=== PATIENT | female | born 1950 | race Caucasian/White ===

== ENCOUNTER → 2016-10-23 | Outpatient (CLI) | payer MEDICARE ==
[2016-10-23 11:00] LABS: Calcium 11.3 mg/dL (8.4-10.2)
[2016-10-23 11:56] LABS: Ionized Calcium 6.1 mg/dL (4.5-5.3)
== END | disposition home or self-care (01) ==
LOC: LABWHC1 10:20
PROVIDERS: ATTEND Family Medicine
DX: E83.52 Hypercalcemia (principal)
CPT/HCPCS: 36415; 82310; 82330; 83970

== ENCOUNTER → 2016-10-27 | Outpatient (CLI) | payer MEDICARE ==
--- NOTE | 2016-10-27 12:01 | US ---
EXAMINATION TYPE: US thyroid st tissue head/neck DATE OF EXAM: 10/27/2016 11:29 AM COMPARISON: Outside chest CT May 15 09/04/2015 CLINICAL HISTORY: Hypercalcemic E83.52,[id number]. GLAND SIZE: Right Lobe: 3.4 x 1.5 x 1.6 cm Overall Parenchyma: homogenous Left Lobe: 3.4 x 1.0 x 0.9 cm Overall Parenchyma: homogeneous Isthmus Thickness: 0.2 cm NODULES RIGHT: # of nodules measured on right: 0 LEFT: # of nodules measured on left: 0 ISTHMUS: # of nodules measured in the isthmus: 0 TECHNOLOGIST IMPRESSION: Bilateral neck scanned, no abnormal lymphadenopathy noted. No thyroid nodul es are seen, however, inferior to right thyroid is oval anechoic nodule = 1.1 x 0.6 x 0.4cm at parath yroid level. Thyroid gland is overall small in size and homogeneous echotexture without suspicious nodule. Inferio r to right thyroid gland technologist identifies 1.1 x 0.4 x 0.6 cm oval hypoechoic anechoic lesion c ould reflect parathyroid adenoma, this is not well seen on old CT but there is significant streak art ifact from contrast injection at this level. IMPRESSION: Possible right-sided parathyroid adenoma. Advise correlation with nuclear medicine parathyroid scan.
== END ==
LOC: RADUSWWP 10:37
PROVIDERS: ATTEND Family Medicine
DX: E83.52 Hypercalcemia (principal); E21.3 Hyperparathyroidism, unspecified
CPT/HCPCS: 76536

== ENCOUNTER → 2016-11-02 | Outpatient (CLI) | payer MEDICARE ==
--- NOTE | 2016-11-02 16:05 | NM ---
EXAMINATION TYPE: NM parathyroid w/spect DATE OF EXAM: 11/02/2016 3:59 PM COMPARISON: NONE HISTORY: TECHNIQUE: Following administration of 27.5 mCi Tc99m Sestamibi. Anterior projection images of the neck and ches t were obtained 10 minutes and 3 hours post injection. SPECT images of the neck and chest were obtai ruben and reconstructed in three axes. FINDINGS: On delayed imaging there is a persistent area of uptake seen within the right thyroid bed suspicious for parathyroid adenoma. IMPRESSION: Findings suspicious for right parathyroid adenoma.
== END ==
LOC: RADNMMAIN 11:27
PROVIDERS: ATTEND Family Medicine
DX: E83.52 Hypercalcemia (principal); E21.3 Hyperparathyroidism, unspecified; D35.1 Benign neoplasm of parathyroid gland
CPT/HCPCS: 78071; A9500

== ENCOUNTER → 2016-11-12 | Outpatient (CLI) | payer MEDICARE ==
[2016-11-12 11:42] LABS: Basophils # (A) 0.1 k/uL (0-0.2); Basophils % (A) 1 %; CH 30.6; CHCM 33.2; Eosinophils # (A) 0.1 k/uL (0-0.7); Eosinophils % (A) 1 %; HCT 46.1 % (34.0-46.0); HDW 2.45; HGB 15.3 gm/dL (11.4-16.0); Luc # (Auto) 0.23; Luc % (Auto) 4; Lymphocytes # (A) 1.3 k/uL (1.0-4.8); Lymphocytes % (A) 20 %; MCH 30.7 pg (25.0-35.0); MCHC 33.1 g/dL (31.0-37.0); MCV 92.7 fL (80.0-100.0); Mean Platelet Volume 7.9; Monocytes # (A) 0.4 k/uL (0-1.0); Monocytes % (A) 7 %; Neutrophils # (A) 4.2 k/uL (1.3-7.7); Neutrophils % (A) 67 %; RBC 4.97 m/uL (3.80-5.40); WBC 6.4 k/uL (3.8-10.6); WBC (Perox) 6.58
[2016-11-12 12:03] LABS: ALT 26 U/L (9-52); AST 19 U/L (14-36); Alkaline Phosphatase 99 U/L (38-126); Anion Gap 9 mmol/L; Blood Urea Nitrogen 14 mg/dL (7-17); Calcium 11.5 mg/dL (8.4-10.2); Carbon Dioxide 28 mmol/L (22-30); Chloride 101 mmol/L (98-107); Glucose 89 mg/dL (74-99); Non-African American GFR(MDRD) >60 (>60 ml/min/1.73 sqM); Sodium 138 mmol/L (137-145); Total Bilirubin 0.6 mg/dL (0.2-1.3); Total Protein 7.5 g/dL (6.3-8.2)
--- NOTE | 2016-11-12 12:06 | XR ---
EXAMINATION TYPE: XR chest 2V DATE OF EXAM: 11/12/2016 11:50 AM COMPARISON: NONE HISTORY: Shortness of breath TECHNIQUE: Frontal and lateral views of the chest are obtained. FINDINGS: Scattered senescent parenchymal changes noted. Hyperinflation compatible with COPD. No evidence for infiltrate. No evidence for atelectasis. Heart size is stable. Mediastinal structures are stable and grossly unremarkable. No evidence for hilar prominence. Degenerative changes dorsal spine. IMPRESSION: 1. No evidence for acute pulmonary disease.
== END ==
LOC: LABWHC1 11:18
PROVIDERS: ATTEND Family Medicine
DX: R06.00 Dyspnea, unspecified (principal); R07.89 Other chest pain
CPT/HCPCS: 36415; 71020; 80053; 84484; 85025; 87086

== ENCOUNTER → 2016-11-13 | Outpatient (CLI) | payer MEDICARE ==
--- NOTE | 2016-11-13 11:51 | EST ---
DATE OF SERVICE: 11/13/2016 AGE: 66Y SEX: F HT: 5'5" WT: 157 lbs. Protocol Viet: X Other: Cardiolite Stage: Dur. of Exercise: 9 minutes *Heart Rate Blood Pressure *Rest: 58 Rest: 118/95 * *Max. Achieved: 130 Maximum BP: 179/72 85% PMHR: 129 100% PMHR: 152 *METS: 11.1 INDICATIONS: Chest pain. MEDICATIONS: Baseline rhythm is sinus mechanism, rate of 58, normal axis and intervals, occasional PVCs. Baseline blood pressure 118/95 mmHg. Patient exercised on Viet protocol for 9 minutes reaching peak rate of 130 beats per minute which is equal to 85% maximum predicted heart rate; peak blood pressure 179/72 mmHg. Test was terminated secondary to fatigue. There was no chest pain. Electrocardiograph monitoring revealed a 0.[address] segment depression that resolved in recovery. Cardiolite was injected at peak exercise. CONCLUSION: 1. Good exercise tolerance with borderline positive electrocardiograph stress testing and occasional premature ventricular contractions. 2. Nuclear images will be reported separately.
--- NOTE | 2016-11-13 13:01 | NM ---
EXAMINATION TYPE: NM stress cardiolite complete DATE OF EXAM: 11/13/2016 12:43 PM COMPARISON: NONE HISTORY: Chest pain TECHNIQUE: After the intravenous administration of 9.9 mCi Tc 99m Sestamibi - Rest images obtained 8 5 minutes post injection. The patient exercised using a SHERITA protocol and 1 minute prior to peak e xercise was injected with 27.5 mCi Tc 99m Sestamibi - Stress images obtained 15 minutes post injectio n. FINDINGS: Targeted heart rate was achieved during performance of the study. Review of stress and rest SPECT viet ges demonstrates no distinct perfusion abnormality. Gated analysis shows normal wall motion with an estimated left ventricular ejection fraction of 58 %. There is good uptake by the left ventricle of radiopharmaceutical without fixed defect. There is no c onvincing inducible ischemic change. IMPRESSION: I DO NOT SEE EVIDENCE OF INDUCIBLE ISCHEMIC CHANGE AT THIS TIME.
== END | disposition home or self-care (01) ==
LOC: RADNMMAIN 08:56
PROVIDERS: ATTEND Family Medicine
DX: R07.89 Other chest pain (principal); R06.00 Dyspnea, unspecified
CPT/HCPCS: 93017; 78452; A9500

== ENCOUNTER → 2016-11-20 | Outpatient (CLI) | payer MEDICARE ==
[2016-11-20 14:09] LABS: Blood Urea Nitrogen 20 mg/dL (7-17); Non-African American GFR(MDRD) 57 (>60 ml/min/1.73 sqM)
--- NOTE | 2016-11-20 15:19 | CT ---
EXAMINATION TYPE: CT angio thoracic/abd aorta DATE OF EXAM: 11/20/2016 3:02 PM COMPARISON: Outside CT chest November 14, 2015. CT abdomen March 14, 2015. HISTORY: Abdominal aneurysm per order with new pain. CT DLP: 760 mGycm. Automated Exposure Control for Dose Reduction was Utilized. CONTRAST: CTA scan of the thorax, abdomen and pelvis is performed with IV Contrast, patient injected with 100 m l mL of Visipaque 320. Three-D reconstructed images are created on independent workstation and review ed. FINDINGS: Vascular: There is satisfactory enhancement of the pulmonary artery and its branches, there is no CT evidence for pulmonary embolism. There is 4.3 x 4.2 cm aneurysm to the ascending thoracic aorta on ax ial image 33 felt stable in size from outside study. Aneurysm measures 4.3 cm in diameter at root lev el on axial image 38. Remainder of aorta shows no aneurysmal change. No linear hypodensity to suggest dissection is seen. There is patency through the deep and superficial femoral artery branches bilate rally without significant stenosis or plaque identified. There is patency of the abdominal branch ves sels including BETY. There is bovine type aortic arch noted which is normal variant. LUNGS: Linear scarring in the left lower lobe is redemonstrated. There is no concerning parenchymal n odule or mass identified bilaterally. There is no pleural effusion or pneumothorax seen. The trach eobronchial tree is patent. MEDIASTINUM: There are no greater than 1 cm hilar or mediastinal lymph nodes. No pericardial effusi on is seen. There is cardiomegaly with mild to moderate biatrial dilatation. Dominant right coronary artery is incidentally noted. OTHER: There is heterogeneously dense fibroglandular tissue redemonstrated in both breasts. There is dystrophic calcification in the left breast present. There is more suspicious oval well-circumscribed lesion in the lower inner quadrant left breast measuring 1.8 x 1.0 cm with Hounsfield units averagin g 41 favoring solid lesion over cystic etiology stable from outside study. There is additional 1.0 x 0.9 cm round lesion in the medial inferior right breast on axial image 31 stable from prior study. Dru th lesions warrant further workup. LIVER/GB: No significant abnormality is appreciated. PANCREAS: No significant abnormality is seen. SPLEEN: No significant abnormality is seen. ADRENALS: No significant abnormality is seen. KIDNEYS: No significant abnormality is seen. BOWEL: No significant abnormality is seen. GENITAL ORGANS: No gross abnormality seen. LYMPH NODES: No greater than 1cm abdominal or pelvic lymph nodes are appreciated. OSSEOUS STRUCTURES: Sclerosis and disc space narrowing lumbosacral junction is present. OTHER: No significant additional abnormality is seen. IMPRESSION: 1. Stable 4.3 cm aneurysm of the ascending thoracic aorta. No evidence for leak/rupture or dissection . 2. Suspicious bilateral breast lesions in which solid masses or neoplasm cannot be excluded. Targeted ultrasound follow-up advised. Also consider mammogram correlation if has not been performed in last six months. Results communicated to ordering physician office via telephone at time of dictation.
== END | disposition home or self-care (01) ==
LOC: RADCTMAIN 13:13
PROVIDERS: ATTEND Internal Medicine Interventional Cardiology
DX: I71.2 Thoracic aortic aneurysm, without rupture (principal); I51.7 Cardiomegaly
CPT/HCPCS: 82565; 84520; 75635; 71275; 36415; Q9967

== ENCOUNTER 2016-11-23 07:27 | Day surgery (SDC) | payer MEDICARE ==
[2016-11-23] MEDS ORDERED: ALPRAZolam 0.5 MG TAB PO PRN (07:44)
[2016-11-23] MEDS ORDERED: NITROGLYCERIN SL TABS 0.4 MG TAB SUBLINGUAL PRN (07:44)
[2016-11-23] MEDS ORDERED: SODIUM CHLORIDE 0.9% 1,000 ML in EMPTY BAG 1 BAG IV ONE (07:44)
[2016-11-23] MEDS ORDERED: ALPRAZolam 0.25 MG TAB PO PRN (07:44)
[2016-11-23] MEDS ORDERED: BENZOCAINE SPRAY 100 APPLIC/CAN TOPICAL PRN (07:45)
[2016-11-23] MEDS ORDERED: ATORVASTATIN 80 MG TAB PO STA (07:47)
[2016-11-23] MEDS ORDERED: ASPIRIN 325 MG TAB PO STA (07:47)
[2016-11-23 07:49] VITALS: RESP 18
[2016-11-23] MEDS ORDERED: MIDAZOLAM 2 MG/2 ML VIAL IV ONE (08:18)
[2016-11-23] MEDS ORDERED: diphenhydrAMINE 50 MG/ML 1 ML VIAL IVP ONE (08:18)
[2016-11-23] MEDS ORDERED: LIDOCAINE 2% INJ 20 MG/ML SQ ONE ×2 (08:20)
[2016-11-23] MEDS: VERAPAMIL SYRINGE (5 MG/10 ML) INTRAARTER ONE ×2 (08:22→08:39)
[2016-11-23] MEDS ORDERED: IOHEXOL 350 MG/ML 100 ML BOTTLE INJ ONE (08:38)
[2016-11-23] MEDS ORDERED: RX INFO: IV CONTRAST WAS GIVEN 1 EACH MISC MISCELLANE PRN (08:47)
[2016-11-23] MEDS ORDERED: SODIUM CHLORIDE 0.9% 1,000 ML IV SCH (09:00)
[2016-11-23 14:53] VITALS: TEMP 98.4
[2016-11-23 14:55] VITALS: BP 135/68; PULSE 58
--- NOTE | 2016-11-23 20:45 | CC ---
DATE OF SERVICE: 11/23/2016 PERFORMING PHYSICIAN: Sancho López M.D., application trainer. PROCEDURE PERFORMED: Selective right and left coronary angiogram. INDICATION: This is a pleasant 66-year-old female patient with known hypertension who was experiencing chest discomfort. She underwent a stress test which came in to be unremarkable, but the patient continues to have chest discomfort. The heart catheterization is to rule out any severe underlying CAD. APPROACH: Right radial artery. COMPLICATIONS: None. LEVEL OF SEDATION: Moderate with sedation length of half an hour. PROCEDURE DESCRIPTION: After obtaining informed consent, the patient was brought to the cardiac catheterization lab. The right radial artery was cannulated using micropuncture technique. The micropuncture wire passed easily. Then I placed a 6 Tongan sheath in the right radial artery. Subsequently I did selective right and left coronary angiogram using JR4 and JL3.5 catheters. Then the procedure was completed without any complication. SELECTIVE CORONARY ANGIOGRAM 1. The right coronary artery is a large-caliber vessel. It is a dominant vessel. It is angiographically normal. It bifurcates into PDA and PLV branches; both are angiographically normal. 2. The left main has mild disease only. It bifurcates into the left circumflex and left anterior descending artery. 3. The left circumflex is a large-caliber vessel. It is a non-dominant vessel. The proximal left circumflex is angiographically normal. It gives rise to a large first OM branch, which appeared to be angiographically normal. The left circumflex continues after that as a medium-caliber vessel in the AV groove. 4. The ramus intermedius is a moderate-caliber vessel, tortuous but angiographically normal. 5. Left anterior descending artery. The proximal LAD appeared to have mild disease only. The mid LAD appeared to be angiographically normal. The LAD distally is angiographically normal as well. The LAD gives rise to small multiple diagonal branches. CONCLUSION: 1. Tortuous right subclavian artery. 2. Tortuous coronary system. 3. Mild non-obstructive coronary artery disease. POST-PROCEDURE MANAGEMENT: 1. Maximize medical treatment. 2. Follow up with the patient.
--- NOTE | 2016-11-23 20:47 | LTR ---
November 23, 2016 RE: Ml Malik E Dear Dr. Villalobos, As we discussed on the phone, Ms. Ml Malik underwent heart catheterization which showed mild non-obstructive coronary artery disease. Thank you for allowing me to participate in her care. Please do not hesitate to call with questions or concerns. Sincerely, CRYSTAL VIERA MD
== END 2016-11-23 14:05 | disposition home or self-care (01) ==
LOC: CATHCVL 07:27
PROVIDERS: ATTEND Internal Medicine Interventional Cardiology
DX: I25.119 Atherosclerotic heart disease of native coronary artery with unspecified angina pectoris (principal); I77.1 Stricture of artery; I10 Essential (primary) hypertension; Z79.82 Long term (current) use of aspirin; Z79.51 Long term (current) use of inhaled steroids; Z79.899 Other long term (current) drug therapy; Z88.1 Allergy status to other antibiotic agents; Z88.8 Allergy status to other drugs, medicaments and biological substances
CPT/HCPCS: 99152; 99153; 93454; C1769 ×2; C1894; J2001; J2250; J1200; Q9967; J1644

== ENCOUNTER → 2016-12-14 | Outpatient (CLI) | payer MEDICARE ==
--- NOTE | 2016-12-15 08:32 | MM ---
Reason for exam: additional evaluation requested from prior study. Last mammogram was performed 1 year ago. History: Patient is postmenopausal. Family history of breast cancer in sister at age 63. Benign US left guided mammotome of the left breast, May 11, 2008. Benign cyst aspiration of the right breast. Took estrogen for 7 years beginning at age 50. Took progesterone for 6 years. Physical Findings: Nurse did not find any significant physical abnormalities on exam. MG 3D Diag Mammo W/Cad JUAN Bilateral CC and MLO view(s) were taken. Prior study comparison: December 13, 2015, bilateral MG 3d diag mammo w/cad JUAN. January 14, 2015, bilateral MG screening mammo w CAD. The breast tissue is heterogeneously dense. This may lower the sensitivity of mammography. Benign calcifications. New bilateral nodularity. This finding is changed when compared with previous exams. These results were verbally communicated with the patient and result sheet given to the patient on 12/14/16. ASSESSMENT: Incomplete: need additional imaging evaluation, BI-RAD 0 RECOMMENDATION: Ultrasound of both breasts.
--- NOTE | 2016-12-15 08:38 | USB ---
Reason for exam: additional evaluation requested from abnormal screening. History: Patient is postmenopausal. Family history of breast cancer in sister at age 63. Benign US left guided mammotome of the left breast, May 11, 2008. Benign cyst aspiration of the right breast. Took estrogen for 7 years beginning at age 50. Took progesterone for 6 years. US Breast BILAT Right breast ultrasound includes all four quadrants, the retroareolar region and axilla. Finding demonstrate a 0.6 x 0.3 x 0.5cm oval, hypoechoic lesion at 1 o'clock, and a 1.0 x 0.9 x 0.7cm hypoechoic lesion at 3 o'clock for which a biopsy is recommended. Left breast ultrasound includes all four quadrants, the retroareolar region and axilla. Finding demonstrate a 2.6 x 2.2 x 0.9cm oval, hypoechoic lesion at 11 o'clock for which a biopsy is recommended. These results were verbally communicated with the patient and result sheet given to the patient on 12/14/16. ASSESSMENT: Suspicious, BI-RAD 4 RECOMMENDATION: Ultrasound core biopsy of both breasts. x [address] Villalobos with mammographic findings and has scheduled an appointment for the patient on 01/14/17 at 9:[address] Abbott. PRELIMINARY REPORT CALLED AND FAXED TO DR. ABBOTT ON 12/15/16 AT 300/TMP.
== END | disposition home or self-care (01) ==
LOC: RADMAMWWP 13:41
PROVIDERS: ATTEND Family Medicine
DX: R92.2 Inconclusive mammogram (principal); R92.8 Other abnormal and inconclusive findings on diagnostic imaging of breast; N63 Unspecified lump in breast; Z80.3 Family history of malignant neoplasm of breast
CPT/HCPCS: 76641; G0204; G0279

== ENCOUNTER → 2016-12-15 | Outpatient (CLI) | payer MEDICARE ==
--- NOTE | 2016-12-15 10:52 | BD ---
EXAMINATION TYPE: MG DEXA axial skeleton. DATE OF EXAM: 12/15/2016 9:08 AM COMPARISON: DEXA bone scan report January 02, 2002 CLINICAL HISTORY: post menopausal Height: 5'5 Weight: 158 FRAX RISK QUESTIONS: Alcohol (3 or more units per day): no Family History (Parent hip fracture): no Glucocorticoids (More than 3mos): no (Ex: prednisone, prednisolone, methylprednisolone, dexamethasone, and hydrocortisone). History of Fracture in Adulthood: no Secondary Osteoporosis: 1. Type 1 Diabetes: no 2. Hyperthyroidism: no 3. Menopause before 45: no 4. Malnutrition: no 5. Chronic liver disease: no Rheumatoid Arthritis: no Current Tobacco Use: no RISK FACTORS HISTORY OF: Family History of Osteoporosis: Postmenopausal woman: MEDICATIONS: Additional Medications: blood pressure, singular Additional History: parathyroid surgery tomorrow, EXAM MEASUREMENTS: Bone mineral densitometry was performed using the [employer] System. Bone mineral density as measured about the Lumbar spine is: ----- L1-L4(G/cm2): 1.387 T Score Values are as follows: ----- L2: 1.5 ----- L3: 2.5 ----- L4: 1.9 ----- L1-L4: 1.7 Bone mineral density has: Decreased -13.5% since study of: 01/02/2002 Bone mineral density about the R hip (g/cm2): 0.991 Bone mineral density about the L hip (g/cm2): 0.966 T Score values are as follows: -----R Neck: -0.3 -----L Neck: -0.5 -----R Total: 0.4 -----L Total: 0.5 Bone mineral density has: Decreased -10.0% since study of: 01/02/2002 IMPRESSION: Normal range on today's study. (Values between +1 and -1 indicate normal bone mass). Consider repeat ing this study in 5 years or sooner if there is some new clinical indication. NOTE: T-SCORE=SD OF THE YOUNG ADULT MEAN.
== END | disposition home or self-care (01) ==
LOC: RADBDWWP 08:47
PROVIDERS: ATTEND Family Medicine
DX: Z13.820 Encounter for screening for osteoporosis (principal); Z78.0 Asymptomatic menopausal state
CPT/HCPCS: 77080

== ENCOUNTER 2016-12-22 09:28 | Emergency (ER) | payer MEDICARE ==
[2016-12-22 09:40] VITALS: BP 156/68; PULSE 65; RESP 20; TEMP 97
--- NOTE | 2016-12-22 10:46 | ED ---
Lower Extremity Injury HPI - General Source: patient, RN notes reviewed Mode of arrival: ambulatory Limitations: no limitations <Ezekiel Peguero - Last Filed: 12/22/16 11:12> <Joshua Muniz - Last Filed: 12/23/16 08:03> - General Chief Complaint: Extremity Injury, Lower Stated Complaint: foot numbness Time Seen by Provider: 12/22/16 09:50 - History of Present Illness Initial Comments: 66-year-old male presents emergency Department with chief complaint of left foot swelling and pain. Patient states that she had thyroidectomy one week ago. Patient states that she noticed some bruising and swelling states it's gotten worse. Patient states that she felt some pain radiating up her leg and some numbness. Patient states she did have an IV attempt in her left foot. She states she is just concerned about possible blood clot. She denies any fever, chills. Patient denies any chest pain or shortness of breath. Patient denies any other complaints at this time. (Ezekiel Peguero) - Related Data Home Medications Medication Instructions Recorded Confirmed Albuterol Sulfate [Proair Hfa] 1 - 2 puff INHALATION Q6HR PRN 11/23/16 12/22/16 Aspirin 81 mg PO DAILY 11/23/16 12/22/16 Cranberry Fruit Concentrate 450 mg PO DAILY 11/23/16 12/22/16 [Cranberry] Cyanocobalamin (Vitamin B-12) 1,000 mcg PO DAILY 11/23/16 12/22/16 [Vitamin B-12] Fish Oil/Dha/Epa [Fish Oil 1,200 1 tab PO DAILY 11/23/16 12/22/16 mg Fish Oil] Fluticasone/Salmeterol [Advair Hfa 2 puff INHALATION BID 11/23/16 12/22/16 115-21 Mcg Inhaler] L.acidoph,Paracasei, B.lactis 1 each PO DAILY 11/23/16 12/22/16 [Probiotic] Montelukast [Singulair] 10 mg PO DAILY 11/23/16 12/22/16 amLODIPine [Norvasc] 5 mg PO DAILY 11/23/16 12/22/16 Allergies Allergy/AdvReac Type Severity Reaction Status Date / Time amoxicillin [From Augmentin] Allergy Nausea & Verified 12/22/16 10:10 Vomiting & Diarrhea ciprofloxacin [From Cipro] Allergy Nausea & Verified 12/22/16 10:10 Vomiting clavulanic acid Allergy Nausea & Verified 12/22/16 10:10 [From Augmentin] Vomiting & Diarrhea Review of Systems ROS Other: All systems not noted in ROS Statement are negative. <Ezekiel Peguero - Last Filed: 12/22/16 11:12> ROS Other: All systems not noted in ROS Statement are negative. <Joshua Muniz - Last Filed: 12/23/16 08:03> ROS Statement: Those systems with pertinent positive or pertinent negative responses have been documented in the HPI. Past Medical History Past Medical History: Asthma, Hypertension, Thyroid Disorder History of Any Multi-Drug Resistant Organisms: None Reported Additional Past Surgical History / Comment(s): thyroid Past Psychological History: No Psychological Hx Reported Smoking Status: Never smoker Past Alcohol Use History: None Reported Past Drug Use History: None Reported <Ezekiel Peguero - Last Filed: 12/22/16 11:12> General Exam Limitations: no limitations General appearance: alert, in no apparent distress Respiratory exam: Present: normal lung sounds bilaterally. Absent: respiratory distress, wheezes, rales, rhonchi, stridor Cardiovascular Exam: Present: regular rate, normal rhythm, normal heart sounds. Absent: systolic murmur, diastolic murmur, rubs, gallop, clicks Extremities exam: Present: other (Left foot dorsal aspect there is an area of edema and ecchymosis. Pedal pulses +2 and equal bilaterally neurovascular intact patient's full strength and full range of motion. Area of ecchymosis on her left foot is tender. There is no calf tenderness) <Ezekiel Peguero - Last Filed: 12/22/16 11:12> Medical Decision Making <Ezekiel Peguero - Last Filed: 12/22/16 11:12> <Joshua Muniz - Last Filed: 12/23/16 08:03> - Medical Decision Making 66-year-old female presented for left foot pain and swelling. Patient has superficial thrombophlebitis secondary to IV. Patient will be discharged. Patient was evaluated by Dr. Muniz. Return parameters were discussed. (Ezekiel Peguero) Patient was evaluated by myself, Dr. Muniz. Patient does have small area of ecchymosis left dorsal foot, approximately 3 x 3 cm. There is associated tenderness. No calf tenderness or leg swelling. Likely superficial thrombophlebitis. Ultrasound be ordered to rule out DVT. Case was discussed with Dr. Madera prior to patient arrival. (Joshua Muniz) Disposition <Ezekiel Peguero - Last Filed: 12/22/16 11:12> <Joshua Muniz - Last Filed: 12/23/16 08:03> Clinical Impression: Superficial thrombophlebitis of lower extremity Disposition: HOME SELF-CARE Condition: Stable Instructions: Superficial Thrombophlebitis (ED) Additional Instructions: Please return to the Emergency Department if symptoms worsen or any other concerns. Referrals: Audrey Villalobos MD [Primary Care Provider] - 1-2 days
--- NOTE | 2016-12-22 11:09 | US ---
EXAMINATION TYPE: US venous doppler duplex LE LT DATE OF EXAM: 12/22/2016 10:58 AM COMPARISON: NONE CLINICAL HISTORY: Pain. Numbness/tingling left leg. Pain left thigh. Bruising/lump top of left foot, recent IV (5 days ago) SIDE PERFORMED: Left TECHNIQUE: The lower extremity deep venous system is examined utilizing real time linear array sonog rima with graded compression, doppler sonography and color-flow sonography. VESSELS IMAGED: External Iliac Vein (EIV) Common Femoral Vein Deep Femoral Vein Greater Saphenous Vein * Femoral Vein Popliteal Vein Small Saphenous Vein * Proximal Calf Veins (* superficial vessels) Left Leg: No evidence of DVT. Scanned top of left foot (area of bruising/lump), superficial thrombus noted within area IMPRESSION: No evidence for DVT at this time.
== END 2016-12-22 11:24 | disposition home or self-care (01) ==
LOC: EC 09:28
DX: I80.02 Phlebitis and thrombophlebitis of superficial vessels of left lower extremity (principal); J45.909 Unspecified asthma, uncomplicated; I10 Essential (primary) hypertension; Z79.51 Long term (current) use of inhaled steroids; Z79.82 Long term (current) use of aspirin; Z79.899 Other long term (current) drug therapy; Z88.0 Allergy status to penicillin; Z88.1 Allergy status to other antibiotic agents
CPT/HCPCS: 99283

== ENCOUNTER → 2016-12-31 | Day surgery (SDC) | payer MEDICARE ==
[~2016-12-31] MED LIST: ALPRAZolam 0.25 MG TAB ONE; BACITRACIN OINT 1 EACH PACKET TOPICAL ONE; LIDOCAINE 1% INJ 10MG/ML (20 ML MDV) ONE
--- NOTE | 2016-12-31 16:13 | USB ---
EXAMINATION TYPE: US biopsy breast VAD RT, US biopsy breast VAD LT, MG post biopsy diagnostic mammo BI wo CAD DATE OF EXAM: 12/31/2016 2:22 PM CLINICAL HISTORY: 66-year-old female R92.8 prev abnormal. Referred for ultrasound-guided bilateral breast biopsy. TECHNIQUE: Ultrasound guided core biopsy of the bilateral breasts. COMPARISON: 12/14/2016 FINDINGS: The procedure of ultrasound guided core biopsy was explained to the patient. Benefits, alternatives, and risks were discussed. An informed consent was then obtained. The patient was placed in supine positioning for imaging and for the procedure. The overlying skin was prepped and draped in usual sterile fashion. Lidocaine was used as anesthetic into the skin and subcutaneous tissue up to area of concern in each breast in turn. 1.) Right breast 3:00 position, lobulated 1.3 cm mass: Under ultrasound guidance , a 13-gauge vacuum-assisted mammotome Elite biopsy gun was used to obtain 5 core samples. Following this, a coil clip was left in lesion. 2.) Left breast 11:00 position, ovoid 2.4 cm mass: Under ultrasound guidance, a 13-gauge vacuum-assisted mammotome Elite biopsy gun was used to obtain 8 core samples. Following this, a coil clip was left in lesion. Aspiration was subsequently attempted which yielded no fluid. The patient tolerated the procedure well without any immediate complication. The patient was kept in the radiology department for short stay after the procedure and then discharged home in stable condition. Postprocedure mammogram shows coil clips in place posteriorly in each breast corresponding to the mammographic nodules. IMPRESSION: Successful, uncomplicated ultrasound guided core biopsy of the 3:00 right breast mass and 11:00 left breast mass. Full pathology results to follow. Pathology Results: Benign A. BREAST, LEFT, CORE BIOPSY: FIBROADENOMA AND FIBROCYSTIC CHANGES INCLUDING CYSTS, APOCRINE METAPLASIA AND SCLEROSING ADENOSIS. B. BREAST, RIGHT, CORE BIOPSY: FIBROADENOMA AND FIBROCYSTIC CHANGES INCLUDING CYSTS, APOCRINE METAPLASIA AND SCLEROSING ADENOSIS. Recommendation Follow up ultrasound of bilateral breasts in 6 months. TALIB
== END ==
LOC: RADUSWWP 11:27
PROVIDERS: ATTEND Surgery
DX: D24.2 Benign neoplasm of left breast (principal); N60.12 Diffuse cystic mastopathy of left breast; N60.82 Other benign mammary dysplasias of left breast; N60.22 Fibroadenosis of left breast; D24.1 Benign neoplasm of right breast; N60.11 Diffuse cystic mastopathy of right breast; N60.81 Other benign mammary dysplasias of right breast; N60.21 Fibroadenosis of right breast; R92.8 Other abnormal and inconclusive findings on diagnostic imaging of breast; Z88.1 Allergy status to other antibiotic agents
CPT/HCPCS: 88305; 19083; 19084; G0204; A4648; J2001

== ENCOUNTER → 2017-03-08 | Outpatient (CLI) | payer MEDICARE | END | disposition home or self-care (01) | LOC: LABWHC1 07:28 | PROVIDERS: ATTEND Family Medicine | DX: Z53.9 Procedure and treatment not carried out, unspecified reason (principal) ==

== ENCOUNTER → 2017-03-09 | Outpatient (CLI) | payer MEDICARE ==
[2017-03-09 10:16] LABS: Basophils % (A) 1 %; Eosinophils # (A) 0.1 k/uL (0-0.7); Eosinophils % (A) 3 %; HCT 43.9 % (34.0-46.0); HDW 2.38; HGB 14.6 gm/dL (11.4-16.0); Luc # (Auto) 0.13; Luc % (Auto) 3; Lymphocytes # (A) 1.6 k/uL (1.0-4.8); Lymphocytes % (A) 34 %; MCH 30.4 pg (25.0-35.0); MCHC 33.2 g/dL (31.0-37.0); MCV 91.5 fL (80.0-100.0); Mean Platelet Volume 7.5; Monocytes # (A) 0.3 k/uL (0-1.0); Monocytes % (A) 7 %; Neutrophils # (A) 2.5 k/uL (1.3-7.7); Neutrophils % (A) 53 %; RBC 4.79 m/uL (3.80-5.40); RDW 13.5 % (11.5-15.5); WBC 4.7 k/uL (3.8-10.6); WBC (Perox) 4.77
[2017-03-09 11:07] LABS: ALT 35 U/L (9-52); AST 19 U/L (14-36); Alkaline Phosphatase 83 U/L (38-126); Anion Gap 11 mmol/L; Blood Urea Nitrogen 21 mg/dL (7-17); Calcium 9.4 mg/dL (8.4-10.2); Carbon Dioxide 26 mmol/L (22-30); Chloride 106 mmol/L (98-107); Cholesterol 191 mg/dL (<200); Glucose 87 mg/dL (74-99); HDL Cholesterol 67 mg/dL (40-60); Non-African American GFR(MDRD) >60 (>60 ml/min/1.73 sqM); Potassium 4.1 mmol/L (3.5-5.1); Sodium 143 mmol/L (137-145); Total Bilirubin 0.5 mg/dL (0.2-1.3); Total Protein 6.8 g/dL (6.3-8.2); Triglycerides 134 mg/dL (<150)
[2017-03-09 11:54] LABS: Vitamin B12 977 pg/mL
== END | disposition home or self-care (01) ==
LOC: LABWHC1 09:45
PROVIDERS: ATTEND Family Medicine
DX: E21.3 Hyperparathyroidism, unspecified (principal); E78.5 Hyperlipidemia, unspecified; E53.8 Deficiency of other specified B group vitamins; J45.40 Moderate persistent asthma, uncomplicated; I10 Essential (primary) hypertension
CPT/HCPCS: 36415; 80053; 80061; 82607; 83970; 84443; 85025

== ENCOUNTER → 2017-04-16 | Outpatient (CLI) | payer MEDICARE ==
[2017-04-16 12:26] LABS: ALT 33 U/L (9-52); AST 19 U/L (14-36); Alkaline Phosphatase 85 U/L (38-126); Anion Gap 8 mmol/L; Blood Urea Nitrogen 15 mg/dL (7-17); Calcium 9.5 mg/dL (8.4-10.2); Carbon Dioxide 26 mmol/L (22-30); Chloride 106 mmol/L (98-107); Glucose 91 mg/dL (74-99); Non-African American GFR(MDRD) >60 (>60 ml/min/1.73 sqM); Sodium 140 mmol/L (137-145); Total Bilirubin 0.4 mg/dL (0.2-1.3)
[2017-04-16 18:08] LABS: ACTH 10.3 pg/mL (0.00-45.99)
== END | disposition home or self-care (01) ==
LOC: LABWHC1 08:48
PROVIDERS: ATTEND Internal Medicine Endocrinology, Diabetes & Metabolism
DX: E21.0 Primary hyperparathyroidism (principal); R53.83 Other fatigue
CPT/HCPCS: 36415; 80053; 82024; 82306; 82533; 84146; 84439; 84443

== ENCOUNTER → 2017-07-16 | Outpatient (CLI) | payer MEDICARE ==
--- NOTE | 2017-07-16 10:59 | USB ---
Reason for exam: follow-up at short interval from prior study. History: Patient is postmenopausal. Family history of breast cancer in sister at age 63. Benign US biopsy breast VAD LT of the left breast, December 31, 2016. Benign US biopsy breast add'l VAD RT of the right breast, December 31, 2016. Benign US left guided mammotome of the left breast, May 11, 2008. Benign cyst aspiration of the right breast. Took estrogen for 7 years beginning at age 50. Took progesterone for 6 years. Physical Findings: Nurse did not find any significant physical abnormalities on exam. US Breast BILAT Right breast ultrasound includes all four quadrants, the retroareolar region and axilla. Finding demonstrates a 1.0 x 1.0 x 0.5cm oval, hypoechoic lesion at 12 o'clock, new, probable fibroadenoma, 6 month follow up recommended and a 0.6 x 0.8 x 0.7cm irregular, lobular, hypoechoic lesion at 3 o'clock. Left breast ultrasound includes all four quadrants, the retroareolar region and axilla. Finding demonstrates a 2.3 x 2.0 x 0.8cm oval, hypoechoic lesion with clip seen at 11 o'clock. These results were verbally communicated with the patient and result sheet given to the patient on 07/16/17. ASSESSMENT: Probably benign, BI-RAD 3 RECOMMENDATION: Ultrasound of the left breast in 6 months.
== END | disposition home or self-care (01) ==
LOC: RADUSWWP 09:03
PROVIDERS: ATTEND Surgery
DX: R92.8 Other abnormal and inconclusive findings on diagnostic imaging of breast (principal)

== ENCOUNTER 2017-11-05 08:31 | Day surgery (SDC) | payer MEDICARE ==
[2017-11-02 17:22] VITALS: BMI 26.6
[~2017-11-05 08:31] MED LIST changes: -ALPRAZolam 0.25 MG TAB ONE; -BACITRACIN OINT 1 EACH PACKET TOPICAL ONE; +LACTATED RINGERS 1,000 ML IV SCH; -LIDOCAINE 1% INJ 10MG/ML (20 ML MDV) ONE
[2017-11-05 09:19] VITALS: TEMP 98.3
[2017-11-05] MEDS ORDERED: LIDOCAINE 1% 20 ML VIAL (10MG/ML) FOR IV START INTRADERMA ONE (09:20)
[2017-11-05] MEDS ORDERED: PROPOFOL 10 MG/ML 20 ML VIAL IV ONE (10:26)
--- NOTE | 2017-11-05 10:50 | P.PCN ---
Date of Procedure: 11/05/17 Procedure(s) Performed: Brief history: Patient is a pleasant 14-year-old white female, scheduled for an elective upper endoscopy as well as colonoscopy as a part of evaluation of chronic dyspepsia, abdominal bloating and postprandial diarrhea with intermittent rectal bleeding for the last few months duration. Procedure performed: Esophagogastroduodenoscopy with biopsy Colonoscopy with biopsy Preoperative diagnosis: Chronic dyspepsia Postoperative abdominal bloating, diarrhea and rectal bleeding [place] [facility] [place] After informed consent was obtained from the patient was brought into the endoscopy unit and IV sedation was administered by anesthesia under continuous monitoring. Initially upper endoscopy was done. The Olympus GF 160 video endoscope was inserted inserted into the mouth and esophagus intubated without any difficulty and was gradually advanced into the stomach and duodenum and carefully examined. The bulb and second part of the duodenum appeared normal. Biopsies were done from the duodenum to rule out celiac disease. The scope was then withdrawn into the stomach adequately insufflated with air and upon careful examination the antrum had patchy areas of erythema in the prepyloric area and biopsies were done from this area. The body, cardia and fundus appeared normal. The scope was then withdrawn into the esophagus. The GE junction was located at 40 cm to the incisors. It appeared irregular with no erythema erosions or ulcerations. Rest of the esophagus appeared normal. Patient tolerated the procedure well. At this time the patient continued to remain sedation. Initial digital rectal examination was normal. Olympus CF 160 video colonoscope was then inserted into the rectum and gradually advanced to the cecum without any difficulty. Careful examination was performed as the scope was gradually being withdrawn. The prep was excellent. There was a 2 cm of mucosal polyp noted and the appendiceal area with normal mucosa and multiple biopsies were done from this area. The cecum, ascending colon, transverse colon, descending colon, sigmoid colon and rectum appeared normal. Scattered sigmoid diverticulosis. Retroflexion was performed in the rectum and no lesions were noted. Patient tolerated the procedure well. Impression: 1. Upper endoscopy revealed mild antral gastritis but no evidence of esophagitis or peptic ulcer disease. 2. Colonoscopy revealed 2 cm submucosal smooth round polypoid area with normal overlying mucosa, status post multiple biopsies. Scattered sigmoid diverticulosis Recommendations: Findings of this examination were discussed with the patient as well as her family. She was advised to follow with the biopsy results. She will be scheduled for a CT of the abdomen and pelvis and await the biopsy results. She' ll be seen in office in 2 weeks.
[2017-11-05 11:11] VITALS: BP 126/66; PULSE 63; RESP 18
== END 2017-11-05 11:35 | disposition home or self-care (01) ==
LOC: ORWHC2ENDO 08:31
PROVIDERS: ATTEND Internal Medicine Gastroenterology
DX: K29.50 Unspecified chronic gastritis without bleeding (principal); K63.5 Polyp of colon; K57.30 Diverticulosis of large intestine without perforation or abscess without bleeding; K21.9 Gastro-esophageal reflux disease without esophagitis; I10 Essential (primary) hypertension; J45.909 Unspecified asthma, uncomplicated; Z88.1 Allergy status to other antibiotic agents; Z79.51 Long term (current) use of inhaled steroids; Z79.899 Other long term (current) drug therapy
CPT/HCPCS: 88305; 45380; 43239; J2704

== ENCOUNTER → 2017-11-11 | Outpatient (CLI) | payer MEDICARE ==
[2017-11-11 14:06] LABS: Blood Urea Nitrogen 22 mg/dL (7-17)
--- NOTE | 2017-11-11 16:39 | CT ---
EXAMINATION TYPE: CT abdomen pelvis w con DATE OF EXAM: 11/11/2017 COMPARISON: 11/20/2016 HISTORY: Polyp 67-year-old female on colon found 1 week ago on colonoscopy TECHNIQUE: Contiguous axial scanning of the abdomen and pelvis following administration of 100 ml Om Isovue 300 IV contrast. Delayed images through the kidneys and coronal/sagittal reconstructions perf ormed. CT DLP: 1263 mGycm Automated exposure control for dose reduction was used. FINDINGS: Heart borderline enlarged without pericardial effusion. Strandy scarring at the left lung base. Some subpleural nodular scarring peripheral right base was present on prior exam. Small hiatal hernia. Approximately 3 subcentimeter hypodensities within the liver are unchanged. Larger hypodensities kristen uring up to 1.8 cm in the left hepatic lobe are also unchanged compatible with cysts. Gallbladder is collapsed. Portal venous system is patent when correlating with the delayed kidney viet ges. No biliary ductal dilatation. Small diverticulum of the second portion of the duodenum projectin g into the pancreatic head region. Adrenal glands, kidneys, spleen, and pancreas appear within normal limits. Small fatty periumbilical hernia. Nondilated small bowel, free fluid, or free air. There is focal soft tissue density at the level of the ileocecal valve within the cecum measuring 2.3 cm, and axial image 51 and coronal image 36. Additional abnormal heterogeneous wall thickening with some cystic areas along the inferior cecum measuring up to 4.2 cm AP by 4.5 cm craniocaudal by 3.7 cm wide, refer to coronal image 31, sagittal image 25, and axial image 56 through 61. Appendix not disc retely visualized. A borderline sized 7 mm right lower quadrant mesenteric lymph node is seen on coronal image 43 and ax ial image 47. Otherwise, no mesenteric or retroperitoneal lymphadenopathy identified. Mild scattered stool. Sigmoid diverticulosis without acute diverticulitis. Bladder partially distended. Mild circumferential bladder wall thickening. Correlate to exclude cysti tis. Uterus surgically absent. Ovaries are visualized. No abnormal fluid collection the pelvis or pel clemente lymphadenopathy. Bones: No osseous destructive process. This session. Degenerative change at L5-S1 and mild degenerati ve disc disease at other levels. IMPRESSION: 1. 4.5 CM HETEROGENEOUS COMPLEX SOLID CYSTIC APPEARING MASS AT THE INFERIOR CECUM COULD REPRESENT A M UCINOUS CARCINOMA. SURGICAL CONSULTATION SHOULD BE CONSIDERED. 2. A SECOND 2.3 CM SOLID APPEARING AREA JUST ABOVE COULD BE A STOOL BALL OR A LARGE POLYP/MASS. 3. BORDERLINE SIZED 7 MM RIGHT LOWER QUADRANT MESENTERIC LYMPH NODE IS NONSPECIFIC. POSSIBLY REACTIVE . 4. SIGMOID DIVERTICULOSIS.
== END ==
LOC: RADCTMAIN 13:27
PROVIDERS: ATTEND Internal Medicine Gastroenterology
DX: K57.30 Diverticulosis of large intestine without perforation or abscess without bleeding (principal); K63.89 Other specified diseases of intestine
CPT/HCPCS: 82565; 84520; 74177; 36415; Q9967

== ENCOUNTER → 2017-12-23 | Outpatient (CLI) | payer MEDICARE ==
--- NOTE | 2017-12-23 11:10 | USB ---
Reason for exam: follow-up at short interval from prior study. History: Patient is postmenopausal. Family history of breast cancer in sister at age 63. Benign US biopsy breast VAD LT of the left breast, December 31, 2016. Benign US biopsy breast add'l VAD RT of the right breast, December 31, 2016. Benign US left guided mammotome of the left breast, May 11, 2008. Benign cyst aspiration of the right breast. Took estrogen for 7 years beginning at age 50. Took progesterone for 6 years. 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 US Breast RT Right complete breast ultrasound includes all four quadrants, the retroareolar region and axilla. Finding demonstrates a 1.0 x 0.5 x 0.9cm oval, hypoechoic, stable lesion at 12 o'clock, a 1.1 x 0.7 x 0.8cm oval, hypoechoic, stable lesion at 3 o'clock and duct ectasia at the posterior nipple. These results were verbally communicated with the patient and result sheet given to the patient on 12/23/17. ASSESSMENT: Benign, BI-RAD 2 RECOMMENDATION: Routine screening mammogram of both breasts. Back on schedule for December 2017.
== END | disposition home or self-care (01) ==
LOC: RADUSWWP 09:28
PROVIDERS: ATTEND Surgery
DX: R92.8 Other abnormal and inconclusive findings on diagnostic imaging of breast (principal)

== ENCOUNTER → 2017-12-27 | Outpatient (CLI) | payer MEDICARE ==
--- NOTE | 2017-12-28 13:20 | MM ---
Reason for exam: screening (asymptomatic). Last mammogram was performed 1 year ago. History: Patient is postmenopausal. Family history of breast cancer in sister at age 63. Benign US biopsy breast VAD LT of the left breast, December 31, 2016. Benign US biopsy breast add'l VAD RT of the right breast, December 31, 2016. Benign US left guided mammotome of the left breast, May 11, 2008. Benign cyst aspiration of the right breast. Took estrogen for 7 years beginning at age 50. Took progesterone for 6 years. Physical Findings: A clinical breast exam by your physician is recommended on an annual basis and results should be correlated with mammographic findings. MG 3D Screening Mammo W/Cad Bilateral CC and MLO view(s) were taken. Prior study comparison: December 31, 2016, bilateral MG diagnostic vítcor BI wo CAD. December 14, 2016, bilateral MG 3d diag mammo w/cad JUAN. The breast tissue is extremely dense which could obscure a lesion on mammography. Stable right upper central mass back to 2014. No suspicious abnormality. Bilateral biopsy markers noted. ASSESSMENT: Benign, BI-RAD 2 RECOMMENDATION: Routine screening mammogram of both breasts in 1 year.
== END | disposition home or self-care (01) ==
LOC: RADMAMWWP 14:00
PROVIDERS: ATTEND Surgery
DX: Z12.31 Encounter for screening mammogram for malignant neoplasm of breast (principal)
CPT/HCPCS: 77063; 77067

== ENCOUNTER → 2017-12-27 | Outpatient (CLI) | payer MEDICARE | END | disposition home or self-care (01) | LOC: LABWHC1 11:14 | PROVIDERS: ATTEND Surgery | DX: Z53.9 Procedure and treatment not carried out, unspecified reason (principal) ==

== ENCOUNTER → 2017-12-27 | Outpatient (CLI) | payer MEDICARE ==
[2017-12-27 11:54] LABS: HCT 43.3 % (34.0-46.0); HGB 14.2 gm/dL (11.4-16.0); MCH 29.5 pg (25.0-35.0); MCHC 32.9 g/dL (31.0-37.0); MCV 89.7 fL (80.0-100.0); Mean Platelet Volume 7.2; Platelet Count 334 k/uL (150-450); RBC 4.82 m/uL (3.80-5.40); RDW 13.9 % (11.5-15.5); WBC 8.7 k/uL (3.8-10.6)
[2017-12-27 12:05] LABS: ALT 32 U/L (9-52); AST 15 U/L (14-36); Alkaline Phosphatase 63 U/L (38-126); Anion Gap 12 mmol/L; Blood Urea Nitrogen 17 mg/dL (7-17); Calcium 9.5 mg/dL (8.4-10.2); Carbon Dioxide 27 mmol/L (22-30); Chloride 102 mmol/L (98-107); Glucose 88 mg/dL (74-99); Potassium 3.3 mmol/L (3.5-5.1); Sodium 141 mmol/L (137-145); Total Bilirubin 0.4 mg/dL (0.2-1.3); Total Protein 6.6 g/dL (6.3-8.2)
[2017-12-28 08:03] LABS: Parathyroid Hormone Intact 48.9 pg/mL (14.0-72.0); Vitamin D 25 Hydroxy 22.1 ng/mL (30.0-100.0)
== END ==
LOC: LABPAT 11:11
PROVIDERS: ATTEND Surgery
DX: Z01.812 Encounter for preprocedural laboratory examination (principal); K63.9 Disease of intestine, unspecified
CPT/HCPCS: 36415; 80053; 82306; 82378; 83970; 85027

== ENCOUNTER 2017-12-30 09:16 | Inpatient (IN) | payer MEDICARE ==
[2017-12-22 11:30] VITALS: BMI 26.6
[~2017-12-30 09:16] MED LIST changes: +ALVIMOPAN 12 MG CAPSULE PO ONE; +HEPARIN SODIUM,PORCINE 5,000 UNIT/ML 1 ML VIAL SQ ONE; -LACTATED RINGERS 1,000 ML IV SCH; +LIDOCAINE 1% 20 ML VIAL (10MG/ML) FOR IV START INTRADERMA PRN; +ceFAZolin IN SWFI 2 GM/20 ML SYRINGE IVP ONE; +metroNIDAZOLE-NS PMX 500 MG in SALINE 1 100ML.BAG IVPB ONE
--- NOTE | 2017-12-30 09:36 | P.GSHP ---
History of Present Illness H&P Date: 12/30/17 Chief Complaint: Colon mass Patient is a 67-year-old female known to our service. He was seen in mid November after a colonoscopy showed a submucosal lesion in the cecum. A CAT scan performed showed a cystic appearing lesion of the appendix and also an area of thickening of the mucosa of the cecum. A 7 mm mesenteric lymph node was also seen. She has chronic right-sided pain. She feels bloated at times. Denies nausea or vomiting. No change in bowel habits. No weight loss. Has a history of previous hiatal herniorrhaphy. Size of the mass approximately 4.5 cm biopsy showed benign mucosa. Past Medical History Past Medical History: Asthma, Hypertension, Thyroid Disorder Additional Past Medical History / Comment(s): HEARTBURN, STOPPED SPICY FOODS; ABD PAIN, BELCHING. HX PARATHYROID TUMOR. History of Any Multi-Drug Resistant Organisms: None Reported Past Surgical History: Bladder Surgery, Hernia Repair, Hysterectomy Additional Past Surgical History / Comment(s): PARATHYROID TUMOR EXC, BENIGN, 2017. RECTOCELE. BLADDER SUSPENSION. HIATAL HERNIA REPAIR 2016. COLONOSCOPY , EGD. Past Anesthesia/Blood Transfusion Reactions: Motion Sickness, Postoperative Nausea & Vomiting (PONV) Additional Past Anesthesia/Blood Transfusion Reaction / Comment(s): PONV W/ ETHER YEARS AGO. Smoking Status: Never smoker - Past Family History Sister(s) Family Medical History: Cancer Additional Family Medical History / Comment(s): breast Medications and Allergies Home Medications Medication Instructions Recorded Confirmed Type Albuterol Sulfate [Proair Hfa] 1 - 2 puff INHALATION Q6HR PRN 11/23/16 12/22/17 History Aspirin 81 mg PO DAILY 11/23/16 12/22/17 History Cyanocobalamin (Vitamin B-12) 1,000 mcg PO DAILY 11/23/16 12/22/17 History [Vitamin B-12] Fluticasone/Salmeterol [Advair Hfa 2 puff INHALATION BID 11/23/16 12/22/17 History 115-21 Mcg Inhaler] L.acidoph,Paracasei, B.lactis 1 each PO DAILY 11/23/16 12/22/17 History [Probiotic] Montelukast [Singulair] 10 mg PO HS 11/23/16 12/22/17 History amLODIPine [Norvasc] 5 mg PO HS 11/23/16 12/22/17 History Calcium Carbonate [Calcium] 600 mg PO DAILY 11/02/17 12/22/17 History predniSONE 10 mg PO DIRECTED 12/22/17 12/22/17 History Allergies Allergy/AdvReac Type Severity Reaction Status Date / Time amoxicillin [From Augmentin] Allergy Nausea & Verified 12/22/17 11:13 Vomiting & Diarrhea ciprofloxacin [From Cipro] Allergy Nausea & Verified 12/22/17 11:13 Vomiting clavulanic acid Allergy Nausea & Verified 12/22/17 11:13 [From Augmentin] Vomiting & Diarrhea mold Allergy Cough Verified 12/22/17 11:13 Surgical - Exam Physical exam: General: Well-developed, well-nourished HEENT: Normocephalic, sclerae nonicteric Abdomen: Nontender, nondistended Extremities: No edema Neuro: Alert and oriented Assessment and Plan (1) Colonic mass Narrative/Plan: We'll proceed with the da Rodney assisted laparoscopic right colectomy. Surgical risks reviewed in detail with the patient. Please refer to recent H&P from 11/25. Current Visit: Yes Status: Acute Code(s): K63.9 - DISEASE OF INTESTINE, UNSPECIFIED SNOMED Code(s): 445508049
[2017-12-30] MEDS: LACTATED RINGERS 1,000 ML IV SCH (09:57)
[2017-12-30] MEDS ORDERED: ONDANSETRON 4 MG/2 ML VIAL IVP ONE ×2 (10:12→17:20)
[2017-12-30] MEDS ORDERED: DEXAMETHASONE SOD PHOSPHATE 10 MG/ML 1 ML VIAL IV ONE (10:12)
[2017-12-30] MEDS ORDERED: BUPIVACAINE (PF) 0.25% 30 ML VIAL SQ ONE (10:15)
[2017-12-30] MEDS ORDERED: MIDAZOLAM 2 MG/2 ML VIAL IV ONE (10:22)
[2017-12-30] MEDS ORDERED: ROCURONIUM BROMIDE 10 MG/ML 10 ML VIAL IV ONE (10:56)
[2017-12-30] MEDS ORDERED: LIDOCAINE 1% INJ 10MG/ML (20 ML MDV) ONE (10:56)
[2017-12-30] MEDS ORDERED: HYDROmorphone (PF) 1 MG/ML ONE (10:56)
[2017-12-30] MEDS ORDERED: GLYCOPYRROLATE 0.2 MG/ML 2 ML VIAL ONE (10:56)
[2017-12-30] MEDS ORDERED: fentaNYL (PF) 50 MCG/ML 2 ML AMP ONE (10:56)
[2017-12-30] MEDS ORDERED: PHENYLEPHRINE-0.9% NACL SYG 1 MG/10 ML SYRINGE ONE (10:56)
[2017-12-30] MEDS ORDERED: SUCCINYLCHOLINE CHLORIDE 100 MG/5 ML SYR IV ONE (10:56)
[2017-12-30] MEDS ORDERED: NEOSTIGMINE 1 MG/ML 10 ML VIAL ONE (10:56)
[2017-12-30] MEDS ORDERED: ONDANSETRON 4 MG/2 ML VIAL ONE (10:56)
[2017-12-30] MEDS ORDERED: INDOCYANINE GREEN 25 MG VIAL IV ONE (10:56)
[2017-12-30] MEDS ORDERED: PROPOFOL 10 MG/ML 20 ML VIAL IV ONE (10:56)
[2017-12-30] MEDS ORDERED: LACTATED RINGERS 1,000 ML IV ONE ×3 (12:44→17:30)
[2017-12-30] MEDS ORDERED: METOCLOPRAMIDE 5 MG/ML 2 ML VIAL IVP PRN (16:14)
--- NOTE | 2017-12-30 16:27 | P.OP ---
Date of Procedure: 12/30/17 Procedure(s) Performed: PREOPERATIVE DIAGNOSIS: Right-sided colon lesion POSTOPERATIVE DIAGNOSIS: Same PROCEDURE: Laparoscopic da Rodney assisted right colectomy with intracorporeal anastomosis SURGEON: Milena EBL: Minimal see anesthesia records ANESTHESIA: General COMPLICATIONS: None OPERATIVE PROCEDURE: Patient was placed on the operating table in the supine position. The patient was placed under general anesthesia. A Brito catheter was placed. The patient's arms were tucked. The abdomen was prepped and draped in usual sterile fashion. Using the 5 mm optical trocar I entered the peritoneal cavity in the left upper quadrant. Full insufflation took place to 15 mmHg. 3 additional trochars were placed for the robot a 12 mm in the left subcostal a 8 mm in the left lateral infraumbilical and a 12 mm in the superpubic location. A 5 mm trocar was placed in the left lateral abdomen. The patient was placed in Trendelenburg (4') right side up(15'). The retroperitoneum was evaluated. the cystic lesion at the base of the appendix was visualized. This measured approximately 3 cm grossly. No definite additional abnormalities were present. There was a left hepatic cyst that appeared benign. There were no significant adhesions throughout the abdomen. The ileocolic pedicle was identified by retracting the cecum anteriorly and laterally. Careful dissection using both blunt dissection and cautery took place in the retroperitoneum. The duodenum was quickly identified despite the excess fatty tissue and this was protected throughout the remainder of the procedure. Our dissection took place laterally and circumferentially around the ileocolic pedicle. The ileocolic pedicle was divided using a 45 white load stapler. Once we reached the lateral abdomen from our retroperitoneal approach the ileum cecum and ascending colon were mobilized by incising the lateral peritoneal attachments. We entered into a retroperitoneal dissection plane. The ureter was not visualized however we maintained a plane anterior to the anticipated location of the ureter. The hepatic flexure was mobilized in a similar fashion although in that location we started using the vessel sealer. The gastrocolic omentum was dissected away from the proximal transverse colon. Once we were able to visualize the transverse colon and hepatic flexure well the transverse colon was divided using a blue load 45 stapler x2. The mesentery of the transverse colon was then divided using the vessel sealer. the terminal ileum was likewise divided using a single 45 mm blue load stapler. At this point our specimen was free and placed in the left upper quadrant. Irrigation took place of the operative site and no bleeding was seen. The terminal ileum was brought in an isoperistaltic manner adjacent to the transverse colon. 2 2-0 Vicryl stay sutures were placed proximally and distally. Small enterotomy and colotomy took place. At that time stapler was fired along the antimesenteric border of both the small bowel and the colon. 2 separate firings of the 45 blue load stapler were utilized. We had an adequate opening between the small bowel and colon at that point. The defect was closed transversely using a running full-thickness 20V lock suture. Once the defect was closed I used a running horizontal mattress Lambert suture along the length of the staple line and imbricated that entire staple line using the same 20V lock suture. The previously placed 3-0 GI vicryl sutures acted as stay sutures proximally and distally. Again irrigation took place with no evidence of bleeding. At that time the pneumoperitoneum was evacuated. The trochar at the suprapubic site was removed. A small Pfannenstiel incision was created. Dissection through the subcutaneous fat and fascia took place horizontally. The rectus musculature was divided bluntly. Entrance into the perineal cavity occurred. The small Stewart was utilized. Through the Stewart a large bag retrieval was placed into the abdomen. Insufflation then took place. The bag was fully opened and the specimen was placed within the bag. Using the strings attached to the bag the bag was removed from the perineal cavity with the specimen side. There was no spillage during retrieval. The pneumoperitoneum was evacuated. All trochars were removed at this time. The fascia was reapproximated using a running #1 Vicryl suture. Subcutaneous tissues were closed using 3-0 Vicryl sutures. The skin was closed using 4-0 Monocryl sutures. Sterile dressings were applied. DISPOSITION: Stable to recovery room
[2017-12-30] MEDS ORDERED: HYDROmorphone 0.5 MG/0.5 ML SYRINGE IVP ONE ×2 (17:24→17:29)
[2017-12-30 17:32] VITALS: RESP 16
[2017-12-30] MEDS: D5-0.45% NACL WITH KCL 20MEQ/L 1,000 ML IV SCH ×2 (18:35)
[2017-12-30] MEDS: FAMOTIDINE 20 MG/2 ML VIAL IV SCH (20:49)
[2017-12-30] MEDS: HYDROmorphone 0.5 MG/0.5 ML SYRINGE IVP PRN ×2 (21:20→23:32)
[2017-12-30] MEDS: HEPARIN SODIUM,PORCINE 5,000 UNIT/ML 1 ML VIAL SQ SCH (23:32)
[2017-12-30] MEDS: ONDANSETRON 4 MG/2 ML VIAL IVP PRN (23:35)
[2017-12-31] MEDS: D5-0.45% NACL WITH KCL 20MEQ/L 1,000 ML IV SCH ×3 (01:59→17:30)
[2017-12-31] MEDS: HYDROmorphone 0.5 MG/0.5 ML SYRINGE IVP PRN ×2 (02:00→07:30)
[2017-12-31 07:53] LABS: Basophils % (A) 0 %; Eosinophils % (A) 0 %; HCT 39.1 % (34.0-46.0); HGB 12.6 gm/dL (11.4-16.0); Lymphocytes # (A) 0.9 k/uL (1.0-4.8); Lymphocytes % (A) 9 %; MCH 29.9 pg (25.0-35.0); MCHC 32.1 g/dL (31.0-37.0); MCV 93.1 fL (80.0-100.0); Mean Platelet Volume 6.9; Monocytes # (A) 0.6 k/uL (0-1.0); Monocytes % (A) 6 %; Neutrophils # (A) 8.2 k/uL (1.3-7.7); Neutrophils % (A) 84 %; Platelet Count 274 k/uL (150-450); RDW 14.1 % (11.5-15.5); WBC 9.7 k/uL (3.8-10.6)
[2017-12-31 07:58] LABS: Anion Gap 9 mmol/L; Blood Urea Nitrogen 13 mg/dL (7-17); Calcium 8.3 mg/dL (8.4-10.2); Carbon Dioxide 24 mmol/L (22-30); Chloride 104 mmol/L (98-107); Glucose 124 mg/dL (74-99); Potassium 4.4 mmol/L (3.5-5.1); Sodium 137 mmol/L (137-145)
[2017-12-31] MEDS: FAMOTIDINE 20 MG/2 ML VIAL IV SCH ×2 (08:47→20:33)
[2017-12-31] MEDS: HEPARIN SODIUM,PORCINE 5,000 UNIT/ML 1 ML VIAL SQ SCH ×2 (08:47→16:15)
[2017-12-31] MEDS: ALVIMOPAN 12 MG CAPSULE PO SCH ×2 (08:47→20:32)
[2017-12-31] MEDS: ONDANSETRON 4 MG/2 ML VIAL IVP PRN (09:31)
--- NOTE | 2017-12-31 09:37 | P.PN ---
<Shakira Lee - Last Filed: 12/31/17 09:29> Subjective Progress Note Date: 12/31/17 67-year-old female seen and examined at bedside sitting up in a chair reports had episode of dizziness lightheadedness after receiving IV pain medication this morning indwelling Brito catheter just removed. States his belching not passing gas no stool reports no nausea. Surgical dressing sites dry Patient is postop December 30 Laparoscopic da Rodney assisted right colectomy with intracorporeal anastomosis for a right side colon Lesion Objective - Vital Signs Vital signs: Vital Signs Temp 98.1 F 12/31/17 07:22 Pulse 64 12/31/17 07:22 Resp 16 12/31/17 07:22 BP 132/77 12/31/17 07:22 Pulse Ox 95 12/31/17 07:22 Intake & Output 12/30/17 12/31/17 12/31/17 18:59 06:59 18:59 Intake Total 3550 2000 Output Total 395 1000 Balance 3155 1000 Intake: IV 3550 Intake, IV Titration 2000 Amount D5-0.45% NaCl with KCl 2000 20Meq/l 1,000 ml @ 125 mls/hr IV .Q8H RANDOLPH Rx#: [id number] Output: Urine 375 1000 Estimated Blood Loss 20 Other: Voiding Method Indwelling Catheter - Exam Physical exam 67-year-old female sitting up in a chair oriented 3 no acute distress Lungs adequate air movement bilaterally on room air no shortness of breath Heart S1-S2 audible regular Abdomen soft surgical tenderness appropriate few hypoactive bowel tones no nausea no vomiting nondistended surgical dressing sites dry indwelling Brito catheter just removed has not voided yet Extremities Venodyne's on to bilateral lower extremities - Labs CBC & Chem 7: 12/31/17 07:31 12/31/17 07:31 Labs: Abnormal Lab Results - Last 24 Hours (Table) 12/30/17 12/31/17 12/31/17 Range/Units 09:56 07:31 07:31 Neutrophils # 8.2 H (1.3-7.7) k/uL Lymphocytes # 0.9 L (1.0-4.8) k/uL Potassium 3.2 L (3.5-5.1) mmol/L Glucose 124 H (74-99) mg/dL Calcium 8.3 L (8.4-10.2) mg/dL Assessment and Plan Assessment: Impression Colonoscopy done in November showed right-sided colon lesion Laparoscopic da Rodney assisted right colectomy with intracorporeal anastomosis done on December 30 Plan Continue postop surgical care Pain control DVT and GI prophylaxis IV fluid for hydration Monitor labs Resume home meds as appropriate Increase activity as tolerated Clear liquid diet The above impression and plan of care have been discussed and directed by signing physician. Shakira Lee nurse practitioner acting as scribe for signing physician. <Adriel Abbott - Last Filed: 12/31/17 14:36> Objective - Vital Signs Vital signs: Vital Signs Temp 98.1 F 12/31/17 07:22 Pulse 79 12/31/17 13:22 Resp 16 12/31/17 07:22 BP 132/77 12/31/17 07:22 Pulse Ox 95 12/31/17 07:22 Intake & Output 12/30/17 12/31/17 12/31/17 18:59 06:59 18:59 Intake Total 3550 2000 Output Total 395 1000 800 Balance 3155 1000 -800 Intake: IV 3550 Intake, IV Titration 2000 Amount D5-0.45% NaCl with KCl 2000 20Meq/l 1,000 ml @ 125 mls/hr IV .Q8H RANDOLPH Rx#: [id number] Output: Urine 375 1000 800 Uretheral (Brito) 800 Estimated Blood Loss 20 Other: Voiding Method Indwelling Catheter Indwelling Catheter - Labs CBC & Chem 7: 12/31/17 07:31 12/31/17 07:31 Labs: Abnormal Lab Results - Last 24 Hours (Table) 12/31/17 12/31/17 Range/Units 07:31 07:31 Neutrophils # 8.2 H (1.3-7.7) k/uL Lymphocytes # 0.9 L (1.0-4.8) k/uL Glucose 124 H (74-99) mg/dL Calcium 8.3 L (8.4-10.2) mg/dL Assessment and Plan Assessment: Patient doing well today. She already had a small loose stool. Mild pain. She is afebrile. Labs appear normal. We'll gradually increase diet. Add Toradol for pain control. (1) Colonic mass Current Visit: Yes Status: Acute Code(s): K63.9 - DISEASE OF INTESTINE, UNSPECIFIED SNOMED Code(s): 713419303
[2017-12-31] MEDS ORDERED: IPRATROPIUM-ALBUTEROL 3 ML NEB INHALATION PRN ×2 (11:22→15:15)
[2017-12-31] MEDS: HYDROcodone/APAP 5-325MG 1 EACH TAB PO PRN ×3 (11:29→22:02)
[2017-12-31] MEDS ORDERED: IPRATROPIUM-ALBUTEROL 3 ML NEB INHALATION SCH (12:00)
[2017-12-31] MEDS: KETOROLAC 30 MG/ML 1 ML VIAL IVP SCH ×2 (15:00→20:32)
[2017-12-31] MEDS ORDERED: ALBUTEROL INHALER 60 PUFF/8 GM INHALER INHALATION PRN (15:13)
--- NOTE | 2017-12-31 15:18 | P.CONS ---
History of Present Illness - Reason for Consult Recommendations regarding antihypertensive medications. - History of Present Illness Patient is a pleasant 68-year-old female admitted for robotic assisted right colectomy with intracorporeal anastomosis for a cecal mass. Patient did move her bowel postoperatively actually diarrhea. Patient pain is well controlled at this time patient denied any fever chills nausea vomiting and fairly controlled abdominal pain. Patient does have history of hypertension blood pressure is well controlled at this point of time patient takes amlodipine at home patient is expected to have perioperative hypotension because of which I' ll hold off amlodipine at this time. Does have history of asthma not in acute exacerbation Review of Systems REVIEW OF SYSTEMS: CONSTITUTIONAL: No fever, no malaise, no fatigue. HEENT: No recent visual problems or hearing problems. Denied any sore throat. CARDIOVASCULAR: No chest pain, orthopnea, PND, no palpitations, no syncope. PULMONARY: No shortness of breath, no cough, no hemoptysis. GASTROINTESTINAL: No diarrhea, no nausea, no vomiting, no abdominal pain. Normoactive bowel sounds. NEUROLOGICAL: No headaches, no weakness, no numbness. HEMATOLOGICAL: Denies any bleeding or petechiae. GENITOURINARY: Denies any burning micturition, frequency, or urgency. MUSCULOSKELETAL/RHEUMATOLOGICAL: Denies any joint pain, swelling, or any muscle pain. ENDOCRINE: Denies any polyuria or polydipsia. The rest of the 14-point review of systems is negative. Past Medical History Past Medical History: Asthma, Hypertension, Thyroid Disorder Additional Past Medical History / Comment(s): HEARTBURN, STOPPED SPICY FOODS; ABD PAIN, BELCHING. HX PARATHYROID TUMOR. History of Any Multi-Drug Resistant Organisms: None Reported Past Surgical History: Bladder Surgery, Hernia Repair, Hysterectomy Additional Past Surgical History / Comment(s): PARATHYROID TUMOR EXC, BENIGN, 2017. RECTOCELE. BLADDER SUSPENSION. HIATAL HERNIA REPAIR 2016. COLONOSCOPY , EGD. Past Anesthesia/Blood Transfusion Reactions: Motion Sickness, Postoperative Nausea & Vomiting (PONV) Additional Past Anesthesia/Blood Transfusion Reaction / Comm: PONV W/ ETHER YEARS AGO. Past Psychological History: No Psychological Hx Reported Smoking Status: Never smoker Past Alcohol Use History: None Reported Past Drug Use History: None Reported - Past Family History Sister(s) Family Medical History: Cancer Additional Family Medical History / Comment(s): breast Medications and Allergies Home Medications Medication Instructions Recorded Confirmed Type Albuterol Sulfate [Proair Hfa] 1 - 2 puff INHALATION RT-Q6H PRN 11/23/16 History Aspirin 81 mg PO DAILY 11/23/16 12/30/17 History Cyanocobalamin (Vitamin B-12) 1,000 mcg PO DAILY 11/23/16 12/30/17 History [Vitamin B-12] Fluticasone/Salmeterol [Advair Hfa 2 puff INHALATION RT-BID 11/23/16 12/30/17 History 115-21 Mcg Inhaler] L.acidoph,Paracasei, B.lactis 1 cap PO DAILY 11/23/16 12/30/17 History [Probiotic] Montelukast [Singulair] 10 mg PO HS 11/23/16 12/30/17 History amLODIPine [Norvasc] 5 mg PO HS 11/23/16 12/30/17 History Calcium Carbonate [Calcium] 600 mg PO DAILY 11/02/17 12/30/17 History predniSONE 10 mg PO DIRECTED 12/22/17 12/30/17 History Allergies Allergy/AdvReac Type Severity Reaction Status Date / Time amoxicillin [From Augmentin] Allergy Nausea & Verified 12/30/17 09:42 Vomiting & Diarrhea ciprofloxacin [From Cipro] Allergy Nausea & Verified 12/30/17 09:42 Vomiting clavulanic acid Allergy Nausea & Verified 12/30/17 09:42 [From Augmentin] Vomiting & Diarrhea mold Allergy Cough Verified 12/30/17 09:42 Physical Exam Vitals: Vital Signs Temp Pulse Pulse Pulse Resp BP BP 12/31/17 14:40 97.8 F 69 16 128/81 12/31/17 13:22 79 12/31/17 13:11 78 12/31/17 07:22 98.1 F 64 16 132/77 12/31/17 02:33 98.3 F 74 16 144/83 12/30/17 20:00 64 128/69 12/30/17 19:45 60 131/69 12/30/17 19:30 63 127/67 12/30/17 19:15 68 135/70 12/30/17 19:00 66 132/66 12/30/17 18:45 71 136/69 12/30/17 18:30 66 139/70 12/30/17 18:15 98.0 F 66 16 131/69 12/30/17 17:55 70 16 114/67 12/30/17 17:45 66 16 112/63 12/30/17 17:30 62 16 110/65 12/30/17 17:15 63 14 117/67 12/30/17 17:00 67 14 113/64 12/30/17 16:45 63 16 110/58 12/30/17 16:34 97.1 F L 72 14 109/56 Pulse Ox 12/31/17 14:40 90 L 12/31/17 13:22 12/31/17 13:11 12/31/17 07:22 95 12/31/17 02:33 96 12/30/17 20:00 12/30/17 19:45 12/30/17 19:30 12/30/17 19:15 12/30/17 19:00 12/30/17 18:45 12/30/17 18:30 12/30/17 18:15 91 L 12/30/17 17:55 96 12/30/17 17:45 94 L 12/30/17 17:30 93 L 12/30/17 17:15 97 12/30/17 17:00 96 12/30/17 16:45 96 12/30/17 16:34 96 Intake and Output 12/31/17 12/31/17 12/31/17 06:59 14:59 22:59 Intake Total 1000 1000 Output Total 1000 800 Balance 0 200 Intake: IV 1000 D5-0.45% NaCl with KCl 1000 20Meq/l 1,000 ml @ 125 mls/hr IV .Q8H [facility] Rx#: [id number] Intake, IV Titration 1000 Amount D5-0.45% NaCl with KCl 1000 20Meq/l 1,000 ml @ 125 mls/hr IV .Q8H [facility] Rx#: [id number] Output: Urine 1000 800 Uretheral (Brito) 800 Other: Voiding Method Indwelling Catheter # Voids 5 PHYSICAL EXAMINATION: GENERAL: The patient is alert and oriented x3, not in any acute distress. Well developed, well nourished. HEENT: Pupils are round and equally reacting to light. EOMI. No scleral icterus. No conjunctival pallor. Normocephalic, atraumatic. No pharyngeal erythema. No thyromegaly. CARDIOVASCULAR: S1 and S2 present. No murmurs, rubs, or gallops. PULMONARY: Chest is clear to auscultation, no wheezing or crackles. ABDOMEN: Soft, nontender, nondistended, bowel sounds are active surgical site areas are clean. MUSCULOSKELETAL: No joint swelling or deformity. EXTREMITIES: No cyanosis, clubbing, or pedal edema. NEUROLOGICAL: Gross neurological examination did not reveal any focal deficits. SKIN: No rashes. Results CBC & Chem 7: 12/31/17 07:31 12/31/17 07:31 Labs: Abnormal Lab Results - Last 24 Hours (Table) 12/31/17 12/31/17 Range/Units 07:31 07:31 Neutrophils # 8.2 H (1.3-7.7) k/uL Lymphocytes # 0.9 L (1.0-4.8) k/uL Glucose 124 H (74-99) mg/dL Calcium 8.3 L (8.4-10.2) mg/dL Assessment and Plan Plan: -Postoperative day 1, colonic resection: Patient is doing postoperatively well pain management and due to prophylaxis per primary service -Asthma without any acute exacerbation patient will be started on inhaled steroids and albuterol as needed. -Hypertension: Patient is expected to have perioperative hypotension because of which amlodipine is being held -Gastroesophageal reflux disease and history of pedal hernia in the past -Hypothyroidism: Patient will be resumed on levo-thyroxine
--- NOTE | 2017-12-31 15:56 | P.CNPUL ---
History of Present Illness Consult date: 12/31/17 Reason for consult: other Chief complaint: Right-sided colon lesion, status post laparoscopic da Rodney fleet assistant right History of present illness: Mrs. Malik is a 67-year-old white female patient of Dr. Villalobos, presented on and elective da Rodney-assisted laparoscopic right colectomy by Dr. Abbott for evidence of submucosal lesion in the cecum. Patient had a colonoscopy in November, and was found to have a 2 cm submucosal smooth round polypoid area with normal overlying mucosa along with scattered areas of sigmoid diverticulosis. The biopsy showed benign colonic mucosa showing focal nonspecific acute inflammation and there was no evidence of any malignancy. Computed tomography scan was also performed on 11/11/2017 which showed a cystic appearing lesion of the appendix and also an area of thickening of the mucosa of the cecum. A 7 mm mesenteric lymph node was also seen. Patient had been complaining of right-sided pain and a palpable mass on her right side, along with occasional bloating. Denied any nausea or vomiting, denied any weight loss , denied any bowel habit change. Has a history of mild intermittent bronchial asthma, hypertension, hypothyroidism. She is a lifetime nonsmoker. Patient sees Dr. Lopez in the pulmonary office for her asthma, and prior to her surgery had a mild bronchitis for which she was given IM Depo-Medrol, and a steroid taper which she completed a day prior to surgery. Prior to that her asthma has been under good control, with no exacerbation in over a year. Her maintenance asthma meds include Advair HFA, and montelukast. Patient also has a history of parathyroid adenoma status post surgical excision, currently on calcium supplements. Other medical history includes hypertension, hiatal hernia status post Malika fundoplication, descending thoracic aortic aneurysm measuring 4.3 x 4.2 cm, bilateral breast lesions for which the patient underwent bilateral core biopsy and the results were benign. Today we are seeing the patient in follow-up after her right colectomy, she denies any acute distress other than postsurgical pain. Her incentive spirometry effort is 1250 , lung sounds are positive for bibasilar crackles. Patient has an occasional productive cough with production of brownish sputum. Denies any fever or chills. Her vitals are stable, she is afebrile, but they on room air with O2 sat at 90%. She is tolerating clear liquid diet, no nausea or vomiting, her Brito has been discontinued, and the patient is voiding, patient had a bowel movement this morning. She is ambulating in the room, and tolerating it well. Review of Systems All systems: negative Constitutional: Denies chills, Denies fever Eyes: denies blurred vision, denies pain Ears, nose, mouth and throat: Denies headache, Denies sore throat Breasts: bilateral: masses (Core needle biopsies were done with benign findings) Breasts: Reports as per HPI Cardiovascular: Denies chest pain, Denies shortness of breath Respiratory: Reports cough with sputum, Denies cough Gastrointestinal: Denies abdominal pain, Denies diarrhea, Denies nausea, Denies vomiting Genitourinary: Denies dysuria, Denies hematuria Musculoskeletal: Denies myalgias Integumentary: Denies pruritus, Denies rash Neurological: Denies numbness, Denies weakness Psychiatric: Denies anxiety, Denies depression Endocrine: Denies fatigue, Denies weight change Past Medical History Past Medical History: Asthma, Hypertension, Thyroid Disorder Additional Past Medical History / Comment(s): HEARTBURN, STOPPED SPICY FOODS; ABD PAIN, BELCHING. HX PARATHYROID TUMOR. History of Any Multi-Drug Resistant Organisms: None Reported Past Surgical History: Bladder Surgery, Hernia Repair, Hysterectomy Additional Past Surgical History / Comment(s): PARATHYROID TUMOR EXC, BENIGN, 2017. RECTOCELE. BLADDER SUSPENSION. HIATAL HERNIA REPAIR 2016. COLONOSCOPY , EGD. Bilateral breast biopsies with benign findings Past Anesthesia/Blood Transfusion Reactions: Motion Sickness, Postoperative Nausea & Vomiting (PONV) Additional Past Anesthesia/Blood Transfusion Reaction / Comment(s): PONV W/ ETHER YEARS AGO. Past Psychological History: No Psychological Hx Reported Smoking Status: Never smoker Past Alcohol Use History: None Reported Past Drug Use History: None Reported - Past Family History Sister(s) Family Medical History: Cancer Additional Family Medical History / Comment(s): breast Medications and Allergies Home Medications Medication Instructions Recorded Confirmed Type Albuterol Sulfate [Proair Hfa] 1 - 2 puff INHALATION RT-Q6H PRN 11/23/16 History Aspirin 81 mg PO DAILY 11/23/16 12/30/17 History Cyanocobalamin (Vitamin B-12) 1,000 mcg PO DAILY 11/23/16 12/30/17 History [Vitamin B-12] Fluticasone/Salmeterol [Advair Hfa 2 puff INHALATION RT-BID 11/23/16 12/30/17 History 115-21 Mcg Inhaler] L.acidoph,Paracasei, B.lactis 1 cap PO DAILY 11/23/16 12/30/17 History [Probiotic] Montelukast [Singulair] 10 mg PO HS 11/23/16 12/30/17 History amLODIPine [Norvasc] 5 mg PO HS 11/23/16 12/30/17 History Calcium Carbonate [Calcium] 600 mg PO DAILY 11/02/17 12/30/17 History predniSONE 10 mg PO DIRECTED 12/22/17 12/30/17 History Allergies Allergy/AdvReac Type Severity Reaction Status Date / Time amoxicillin [From Augmentin] Allergy Nausea & Verified 12/30/17 09:42 Vomiting & Diarrhea ciprofloxacin [From Cipro] Allergy Nausea & Verified 12/30/17 09:42 Vomiting clavulanic acid Allergy Nausea & Verified 12/30/17 09:42 [From Augmentin] Vomiting & Diarrhea mold Allergy Cough Verified 12/30/17 09:42 Physical Exam Vitals: Vital Signs Temp Pulse Pulse Pulse Resp BP BP 12/31/17 14:40 97.8 F 69 16 128/81 12/31/17 13:22 79 12/31/17 13:11 78 12/31/17 07:22 98.1 F 64 16 132/77 12/31/17 02:33 98.3 F 74 16 144/83 12/30/17 20:00 64 128/69 12/30/17 19:45 60 131/69 12/30/17 19:30 63 127/67 12/30/17 19:15 68 135/70 12/30/17 19:00 66 132/66 12/30/17 18:45 71 136/69 12/30/17 18:30 66 139/70 12/30/17 18:15 98.0 F 66 16 131/69 12/30/17 17:55 70 16 114/67 12/30/17 17:45 66 16 112/63 12/30/17 17:30 62 16 110/65 12/30/17 17:15 63 14 117/67 12/30/17 17:00 67 14 113/64 12/30/17 16:45 63 16 110/58 12/30/17 16:34 97.1 F L 72 14 109/56 Pulse Ox 12/31/17 14:40 90 L 12/31/17 13:22 12/31/17 13:11 12/31/17 07:22 95 12/31/17 02:33 96 12/30/17 20:00 12/30/17 19:45 12/30/17 19:30 12/30/17 19:15 12/30/17 19:00 12/30/17 18:45 12/30/17 18:30 12/30/17 18:15 91 L 12/30/17 17:55 96 12/30/17 17:45 94 L 12/30/17 17:30 93 L 12/30/17 17:15 97 12/30/17 17:00 96 12/30/17 16:45 96 12/30/17 16:34 96 Intake and Output 12/31/17 12/31/17 12/31/17 06:59 14:59 22:59 Intake Total 1000 1000 Output Total 1000 800 Balance 0 200 Intake: IV 1000 D5-0.45% NaCl with KCl 1000 20Meq/l 1,000 ml @ 125 mls/hr IV .Q8H [facility] Rx#: [id number] Intake, IV Titration 1000 Amount D5-0.45% NaCl with KCl 1000 20Meq/l 1,000 ml @ 125 mls/hr IV .Q8H [facility] Rx#: [id number] Output: Urine 1000 800 Uretheral (Brito) 800 Other: Voiding Method Indwelling Catheter # Voids 5 - Constitutional General appearance: average body habitus, no acute distress - EENT Eyes: PERRLA ENT: NA/AT Ears: bilateral: normal - Neck Neck: no lymphadenopathy, normal ROM Carotids: bilateral: upstroke normal - Respiratory Respiratory: bilateral: rales (Bilateral bases) - Cardiovascular Rhythm: regular Heart sounds: normal: S1, S2 ankle Peripheral Edema: absent: None foot Peripheral Edema: absent: None leg Peripheral Edema: absent: None - Gastrointestinal General gastrointestinal: no organomegaly, soft, no tenderness - Integumentary Integumentary: normal turgor - Neurologic Neurologic: CNII-XII intact - Musculoskeletal Musculoskeletal: gait normal, strength equal bilaterally - Psychiatric Psychiatric: A&O x's 3, appropriate affect, intact judgment & insight Results - Laboratory Findings CBC and BMP: 12/31/17 07:31 12/31/17 07:31 Abnormal lab findings: Abnormal Labs 12/30/17 12/31/17 12/31/17 09:56 07:31 07:31 Neutrophils # 8.2 H Lymphocytes # 0.9 L Potassium 3.2 L Glucose 124 H Calcium 8.3 L Assessment and Plan Plan: Assessment: #1. Right-sided colon lesion, status post laparoscopic da Rodney assisted right colectomy with intracorporeal anastomoses #2. Mild intermittent asthma, with a recent activity and the patient has completed a course of systemic steroids prior to surgery. Currently stable #3. Parathyroid adenoma, status post surgical excision #4. History of bilateral breast lesions, status post core biopsy with benign findings on 12/31/2016 #5. Hypertension #6. Hiatal hernia status post Malika fundoplication #7. History of hysterectomy, bladder suspension #8. Lifetime nonsmoker Plan: Continue encouraging incentive spirometry use, will add DuoNeb on as-needed basis, patient can continue with her Advair from home. Her asthma is stable at this time. Early ambulation, deep breathing and coughing. We'll continue to follow I performed a history & physical examination of the patient and discussed their management with my nurse practitioner, Aida Alberto. I reviewed the nurse practitioner's note and agree with the documented findings and plan of care. Lung sounds are positive for bibasilar crackles. The findings and the impression was discussed with the patient. I attest to the documentation by the nurse practitioner. Time with Patient: Greater than 30
[2017-12-31] MEDS ORDERED: SYMBICORT 160-4.5 MCG INHALER INHALATION SCH (20:00)
[2017-12-31] MEDS ORDERED: SALMETEROL INHALATION SCH (20:00)
[2017-12-31] MEDS ORDERED: FLUTICASONE INHALATION SCH (20:00)
[2018-01-01] MEDS: HEPARIN SODIUM,PORCINE 5,000 UNIT/ML 1 ML VIAL SQ SCH ×2 (00:42→08:55)
[2018-01-01 02:28] VITALS: PULSE 62
[2018-01-01] MEDS: KETOROLAC 30 MG/ML 1 ML VIAL IVP SCH ×2 (03:25→08:56)
[2018-01-01] MEDS: D5-0.45% NACL WITH KCL 20MEQ/L 1,000 ML IV SCH ×2 (03:26→11:45)
[2018-01-01 06:52] LABS: Basophils % (A) 0 %; Eosinophils # (A) 0.2 k/uL (0-0.7); Eosinophils % (A) 2 %; HCT 39.9 % (34.0-46.0); HGB 13.3 gm/dL (11.4-16.0); Lymphocytes # (A) 2.1 k/uL (1.0-4.8); Lymphocytes % (A) 26 %; MCH 30.7 pg (25.0-35.0); MCHC 33.5 g/dL (31.0-37.0); MCV 91.6 fL (80.0-100.0); Mean Platelet Volume 6.9; Monocytes # (A) 0.5 k/uL (0-1.0); Monocytes % (A) 6 %; Neutrophils # (A) 5.4 k/uL (1.3-7.7); Neutrophils % (A) 65 %; Platelet Count 249 k/uL (150-450); RBC 4.35 m/uL (3.80-5.40); RDW 14.2 % (11.5-15.5); WBC 8.3 k/uL (3.8-10.6)
[2018-01-01 07:06] LABS: Anion Gap 8 mmol/L; Blood Urea Nitrogen 8 mg/dL (7-17); Calcium 8.5 mg/dL (8.4-10.2); Carbon Dioxide 28 mmol/L (22-30); Chloride 106 mmol/L (98-107); Glucose 93 mg/dL (74-99); Potassium 3.9 mmol/L (3.5-5.1); Sodium 142 mmol/L (137-145)
[2018-01-01] MEDS: HYDROcodone/APAP 5-325MG 1 EACH TAB PO PRN (07:11)
--- NOTE | 2018-01-01 08:14 | P.PN ---
Subjective Progress Note Date: 01/01/18 Principal diagnosis: Right-sided colon lesion, status post laparoscopic da Rodney assisted right colectomy with intracorporeal anastomosis, postop day 1 Mrs. Malik is a 67-year-old white female patient of Dr. Villalobos, presented on and elective da Rodney-assisted laparoscopic right colectomy by Dr. Abbott for evidence of submucosal lesion in the cecum. Patient had a colonoscopy in November, and was found to have a 2 cm submucosal smooth round polypoid area with normal overlying mucosa along with scattered areas of sigmoid diverticulosis. The biopsy showed benign colonic mucosa showing focal nonspecific acute inflammation and there was no evidence of any malignancy. Computed tomography scan was also performed on 11/11/2017 which showed a cystic appearing lesion of the appendix and also an area of thickening of the mucosa of the cecum. A 7 mm mesenteric lymph node was also seen. Patient had been complaining of right-sided pain and a palpable mass on her right side, along with occasional bloating. Denied any nausea or vomiting, denied any weight loss , denied any bowel habit change. Has a history of mild intermittent bronchial asthma, hypertension, hypothyroidism. She is a lifetime nonsmoker. Patient sees Dr. Lopez in the pulmonary office for her asthma, and prior to her surgery had a mild bronchitis for which she was given IM Depo-Medrol, and a steroid taper which she completed a day prior to surgery. Prior to that her asthma has been under good control, with no exacerbation in over a year. Her maintenance asthma meds include Advair HFA, and montelukast. Patient also has a history of parathyroid adenoma status post surgical excision, currently on calcium supplements. Other medical history includes hypertension, hiatal hernia status post Malika fundoplication, descending thoracic aortic aneurysm measuring 4.3 x 4.2 cm, bilateral breast lesions for which the patient underwent bilateral core biopsy and the results were benign. Today we are seeing the patient in follow-up after her right colectomy, she denies any acute distress other than postsurgical pain. Her incentive spirometry effort is 1250 , lung sounds are positive for bibasilar crackles. Patient has an occasional productive cough with production of brownish sputum. Denies any fever or chills. Her vitals are stable, she is afebrile, but they on room air with O2 sat at 90%. She is tolerating clear liquid diet, no nausea or vomiting, her Brito has been discontinued, and the patient is voiding, patient had a bowel movement this morning. She is ambulating in the room, and tolerating it well. On 01/01/2018 patient is seen in follow-up. Her pain is under fair control on a combination of [place], Toradol and IV Dilaudid for breakthrough pain. Patient denies any chest pain, denies any chest tightness or dyspnea. Has a sore throat this morning, which has improved after drinking drinking some hot liquids. IS effort is 1500 mL. Patient is on a regular diet, states she has been up voiding frequently last night, could not get much sleep. Her IV fluid is D5 0.45 normal saline with 20 and MICU of KCl at a rate of 125 ml/hr. Abdomen is soft, nontender. Surgical incisions are covered with dressings, clean dry intact. She has been ambulating around the unit and tolerating it well. Objective - Vital Signs Vital signs: Vital Signs Temp 97.8 F 01/01/18 01:20 Pulse 62 01/01/18 01:20 Resp 16 01/01/18 03:15 BP 138/71 01/01/18 01:20 Pulse Ox 96 01/01/18 07:33 Intake & Output 12/31/17 01/01/18 01/01/18 18:59 06:59 18:59 Intake Total 1000 2000 Output Total 800 1800 Balance 200 200 Intake: IV 1000 2000 D5-0.45% NaCl with KCl 1000 2000 20Meq/l 1,000 ml @ 125 mls/hr IV .Q8H [facility] Rx#: [id number] Output: Urine 800 1800 Uretheral (Brito) 800 Other: Voiding Method Indwelling Catheter Toilet # Voids 5 2 - Exam - Constitutional General appearance: average body habitus, no acute distress - EENT Eyes: PERRLA ENT: NA/AT Ears: bilateral: normal - Neck Neck: no lymphadenopathy, normal ROM Carotids: bilateral: upstroke normal - Respiratory Respiratory: bilateral: No wheezes, no rales - Cardiovascular Rhythm: regular Heart sounds: normal: S1, S2 ankle Peripheral Edema: absent: None foot Peripheral Edema: absent: None leg Peripheral Edema: absent: None - Gastrointestinal General gastrointestinal: no organomegaly, soft, no tenderness. Abdominal laparoscopic incisions are clean dry and intact, covered with surgical dressings - Integumentary Integumentary: normal turgor - Neurologic Neurologic: CNII-XII intact - Musculoskeletal Musculoskeletal: gait normal, strength equal bilaterally - Psychiatric Psychiatric: A&O x's 3, appropriate affect, intact judgment & insight - Labs CBC & Chem 7: 01/01/18 06:36 01/01/18 06:36 Labs: Abnormal Lab Results - Last 24 Hours (Table) 12/31/17 12/31/17 Range/Units 07:31 07:31 Neutrophils # 8.2 H (1.3-7.7) k/uL Lymphocytes # 0.9 L (1.0-4.8) k/uL Glucose 124 H (74-99) mg/dL Calcium 8.3 L (8.4-10.2) mg/dL Assessment and Plan Plan: Assessment: #1. Right-sided colon lesion, status post laparoscopic da Rodney assisted right colectomy with intracorporeal anastomoses, post-op day 1 #2. Mild intermittent asthma, with a recent activity and the patient has completed a course of systemic steroids prior to surgery. Currently stable #3. Parathyroid adenoma, status post surgical excision #4. History of bilateral breast lesions, status post core biopsy with benign findings on 12/31/2016 #5. Hypertension #6. Hiatal hernia status post Malika fundoplication #7. History of hysterectomy, bladder suspension #8. Lifetime nonsmoker Plan: Patient remains stable from pulmonary standpoint, her is bringing her Advair from home today, continue DuoNeb nebulized treatments continue encouraging incentive spirometry, ambulation. We'll check with surgery if her IV fluids could be decreased. We will add home dose of Singulair. Cepacol lozenges for the sore throat. I performed a history & physical examination of the patient and discussed their management with my nurse practitioner, Aida Alberto. I reviewed the nurse practitioner's note and agree with the documented findings and plan of care. Lung sounds are clear. The findings and the impression was discussed with the patient. I attest to the documentation by the nurse practitioner. Time with Patient: Less than 30
[2018-01-01] MEDS: ALVIMOPAN 12 MG CAPSULE PO SCH (08:56)
[2018-01-01] MEDS: FAMOTIDINE 20 MG/2 ML VIAL IV SCH (08:56)
[2018-01-01] MEDS ORDERED: CALCIUM CARBONATE 500 MG CHEWABLE PO SCH (09:00)
[2018-01-01] MEDS ORDERED: ASPIRIN 81 MG PO SCH (09:00)
--- NOTE | 2018-01-01 09:03 | P.PN ---
Subjective Progress Note Date: 01/01/18 Principal diagnosis: Right colon mass Patient doing well today. Her throat feels dry. Minimal abdominal pain. Having loose stools. Tolerating her diet. Urinating frequently. Labs reviewed. Objective - Vital Signs Vital signs: Vital Signs Temp 97.8 F 01/01/18 01:20 Pulse 62 01/01/18 01:20 Resp 16 01/01/18 03:15 BP 138/71 01/01/18 01:20 Pulse Ox 96 01/01/18 07:33 Intake & Output 12/31/17 01/01/18 01/01/18 18:59 06:59 18:59 Intake Total 1000 2000 Output Total 800 1800 Balance 200 200 Intake: IV 1000 2000 D5-0.45% NaCl with KCl 1000 2000 20Meq/l 1,000 ml @ 125 mls/hr IV .Q8H [facility] Rx#: [id number] Output: Urine 800 1800 Uretheral (Brito) 800 Other: Voiding Method Indwelling Catheter Toilet # Voids 5 2 - Exam Abdomen: Soft, nondistended, incisions clean and dry with minimal tenderness - Labs CBC & Chem 7: 01/01/18 06:36 01/01/18 06:36 Assessment and Plan (1) Colonic mass Narrative/Plan: Continue low fiber diet. Ambulate. Anticipate discharge tomorrow. Current Visit: Yes Status: Acute Code(s): K63.9 - DISEASE OF INTESTINE, UNSPECIFIED SNOMED Code(s): 080033265
[2018-01-01 09:58] VITALS: BP 122/56; TEMP 97.2
[2018-01-01] MEDS: BENZOCAINE/MENTHOL LOZENG 1 EACH LOZENGE MUCOUS MEM SCH ×2 (11:44→12:03)
[2018-01-01] MEDS ORDERED: CYANOCOBALAMIN 500 MCG TAB PO SCH (12:00)
--- NOTE | 2018-01-01 12:52 | P.PN ---
Progress Note - Text Progress Note Date: 01/01/[address] Abbott this morning. She is tolerating regular diet. Her pain has improved. She is eager to home possibly today. She verbalized her discharge instructions as described by her admitting attending. Follow up with Dr. Abbott in 7 days.
[2018-01-01] MEDS ORDERED: Fluticasone/Salmeterol [Advair Hfa 115-21 Mcg Inhaler] PO SCH (20:00)
[2018-01-01] MEDS ORDERED: MONTELUKAST 10 MG TAB PO SCH (21:00)
[2018-01-01] MEDS ORDERED: FAMOTIDINE 20 MG TAB PO SCH (21:00)
== END 2018-01-01 14:58 | disposition home or self-care (01) | DRG 331 ==
LOC: 2ORMAIN 09:16 → 3SUR 16:05
PROVIDERS: ADMIT Surgery; ATTEND Surgery
PROC: 0DTF0ZZ Resection of Right Large Intestine, Open Approach (ICD-10-PCS; principal; 2017-12-30 11:00)
DX: K63.9 Disease of intestine, unspecified (principal); I10 Essential (primary) hypertension; K57.30 Diverticulosis of large intestine without perforation or abscess without bleeding; E03.9 Hypothyroidism, unspecified; R12 Heartburn; K21.9 Gastro-esophageal reflux disease without esophagitis; R14.0 Abdominal distension (gaseous); J45.20 Mild intermittent asthma, uncomplicated; J02.9 Acute pharyngitis, unspecified; Z87.19 Personal history of other diseases of the digestive system; Z79.899 Other long term (current) drug therapy; Z90.710 Acquired absence of both cervix and uterus; Z79.82 Long term (current) use of aspirin; Z79.51 Long term (current) use of inhaled steroids; Z79.52 Long term (current) use of systemic steroids; Z88.1 Allergy status to other antibiotic agents; Z91.048 Other nonmedicinal substance allergy status; Z80.3 Family history of malignant neoplasm of breast
CPT/HCPCS: 36415; 80048; 80053; 82306; 82378; 83970; 84132; 85025; 85027; 86850; 86900; 86901; 94640; 94760

== ENCOUNTER → 2018-01-27 | Outpatient (CLI) | payer MEDICARE ==
[2018-01-27 13:09] LABS: Blood Urea Nitrogen 22 mg/dL (7-17)
--- NOTE | 2018-01-27 14:48 | CT ---
EXAMINATION TYPE: CT abdomen pelvis w con DATE OF EXAM: 01/27/2018 HISTORY: Post OP Colon resection 3 weeks. Mid Abdominal pain CT DLP: 1155mGycm Automated Exposure Control for Dose Reduction was Utilized. CONTRAST: CT scan of the abdomen and pelvis is performed with oral and with IV Contrast, patient injected with 100 mL of Isovue 300. COMPARISON: CT abdomen and pelvis November 11, 2017 FINDINGS: LUNG BASES: There is mild cardiomegaly with left basilar linear scarring redemonstrated. LIVER/GB: Liver remains diffusely hypodense suggesting fatty infiltration. Vague hypodensity in the s ubhepatic and intrahepatic IVC likely reflects mixing of contrast and noncontrast filled draining vei n. No persistent abnormal hypodensity is seen on delayed phased images to suggest thrombus. There is partial exophytic thin-walled 2.0 cm cyst left hepatic lobe axial image 26. There is stable 1.8 cm ce ntral cyst axial image 22. There is subcentimeter lesion right hepatic lobe axial image 21 too small to further characterize but presumed benign. PANCREAS: No significant abnormality is seen. SPLEEN: No significant abnormality is seen. ADRENALS: No significant abnormality is seen. KIDNEYS: No significant abnormality is seen. BOWEL: There is interval right-sided hemicolectomy with new anastomosis or sutures seen on axial imag e 47. Oral contrast does not reach level of anastomosis making evaluation slightly suboptimal. There is mild prominence of contrast filled stomach. There is no suspicious dilatation of duodenal sweep ar e contrast filled proximal small bowel loops. There is nondistended distal small bowel. There is feca l material in nondistended colon. Sigmoid colonic diverticulosis is redemonstrated. UTERUS/ADNEXA: Uterus is surgically absent. There is stable prominence of the cervical remnant bulgin g on bladder base coronal image 48. LYMPH NODES: No greater than 1cm abdominal or pelvic lymph nodes are appreciated. OSSEOUS STRUCTURES: There is moderate to advanced disc space narrowing lumbosacral junction. There is additional fairly moderate multilevel spurring throughout the lumbar spine. There is facet arthropat hy lower lumbar levels. OTHER: There is stable small to moderate-sized fat-containing umbilical hernia. IMPRESSION: Interval right-sided hemicolectomy. No bowel obstruction. No suspicious acute finding is seen to account for patient's symptoms.
== END | disposition home or self-care (01) ==
LOC: RADCTMAIN 11:45
PROVIDERS: ATTEND Surgery
DX: R10.84 Generalized abdominal pain (principal); Z90.49 Acquired absence of other specified parts of digestive tract
CPT/HCPCS: 82565; 84520; 74177; 36415; Q9967

== ENCOUNTER → 2018-02-11 | Outpatient (CLI) | payer MEDICARE ==
--- NOTE | 2018-02-11 08:39 | US ---
EXAMINATION TYPE: US thyroid st tissue head/neck DATE OF EXAM: 02/11/2018 COMPARISON: 10/27/2016 CLINICAL HISTORY: 67-year-old female E20.0 Primary hyperparathyroidism; patient stated had inferior r ight parathyroid nodule removed last year TECHNIQUE: Multiple sonographic images of the thyroid gland are obtained. FINDINGS: GLAND SIZE: Right Lobe: 3.3 x 1.2 x 2.2 cm Overall Parenchyma: homogenous Left Lobe: 2.7 x 0.9 x 1.2 cm Overall Parenchyma: homogeneous Isthmus Thickness: 0.3 cm NODULES RIGHT: # of nodules measured on right: 0. The previously seen hypoechoic nodule inferior to the rig ht lobe is no longer identified. LEFT: # of nodules measured on left: 0 ISTHMUS: # of nodules measured in the isthmus: 0 Bilateral neck scanned: superior to left thyroid oval hypoechoic area, probable lymph node measuring 1.1 x 0.7 x 0.6cm. Consider reassessment in 3-6 months. IMPRESSION: 1. No discrete thyroid nodule. The previously seen hypoechoic nodule inferior to the right lobe is no longer identified. 2. Above the left upper lobe, there is an ovoid 1.1 x 0.7 cm lesion, suspected lymph node. A 3-6 rocio h follow-up exam can be performed as a precautionary measure.
== END | disposition home or self-care (01) ==
LOC: RADUSWWP 07:08
PROVIDERS: ATTEND Internal Medicine Endocrinology, Diabetes & Metabolism
DX: E21.0 Primary hyperparathyroidism (principal)
CPT/HCPCS: 76536

== ENCOUNTER → 2018-04-08 | Outpatient (CLI) | payer MEDICARE ==
[2018-04-08 15:15] LABS: Calcium 9.4 mg/dL (8.4-10.2); Potassium 3.8 mmol/L (3.5-5.1); Total Bilirubin 0.3 mg/dL (0.2-1.3); Total Protein 6.7 g/dL (6.3-8.2)
[2018-04-08 18:24] LABS: Vitamin D 25 Hydroxy 24.5 ng/mL (30.0-100.0)
[2018-04-08 18:44] LABS: Parathyroid Hormone Intact 69.1 pg/mL (14.0-72.0)
--- NOTE | 2018-04-08 20:32 | US ---
EXAMINATION TYPE: US thyroid st tissue head/neck DATE OF EXAM: 04/08/2018 COMPARISON: NONE previous dated 02/11/2018 CLINICAL HISTORY: E21.0 Primary hyperparathyroidism, R53.83 Fatigue. GLAND SIZE: Right Lobe: 3.6 x 1.3 x 1.8 cm Overall Parenchyma: homogenous Left Lobe: 3.3 x 0.9 x 1.7 cm Overall Parenchyma: homogeneous Isthmus Thickness: 0.3 cm NODULES RIGHT: # of nodules measured on right: 0 LEFT: # of nodules measured on left: 0 ISTHMUS: # of nodules measured in the isthmus: 0 Bilateral neck scanned. Lymph node seen superior to left lobe = 1.3 x 0.9 x 0.6 cm, stable and benig n in appearance IMPRESSION: Stable exam, benign-appearing lymph node is unchanged.
== END | disposition home or self-care (01) ==
LOC: RADUSWWP 14:40
PROVIDERS: ATTEND Internal Medicine Endocrinology, Diabetes & Metabolism
DX: E21.0 Primary hyperparathyroidism (principal); R53.83 Other fatigue
CPT/HCPCS: 36415; 76536; 80053; 82306; 83970

== ENCOUNTER → 2018-05-17 | Outpatient (CLI) | payer MEDICARE ==
--- NOTE | 2018-05-17 12:35 | CT ---
EXAMINATION TYPE: CT soft tissue neck w con DATE OF EXAM: 05/17/2018 COMPARISON: None HISTORY: 67-year-old female with left neck swelling patient with history of prior parathyroid tumor r emoval. TECHNIQUE: Contiguous axial scanning of the soft tissues of the neck performed with IV Contrast, leodan ent injected with 100 mL of Isovue 300. Coronal/sagittal reconstructions performed. CT DLP: 607 mGycm Automated exposure control for dose reduction was used. FINDINGS: Visualized intracranial structures, orbits and globes, and mastoid air cells appear clear. Trace muco ashley thickening along the floors of the maxillary sinuses. The nasopharynx is clear. Mild bilateral tubal and palatine tonsillar enlargement. The epiglottis and prevertebral soft tissues are within normal limits. The glottic and subglottic structures as well as the tracheal column are clear. The vocal folds appea r symmetrical. There is extensive mosaic attenuation within the visualized upper lungs. The visualized proximal arch is aneurysmal at 4.0 cm. Bovine configuration to the aortic arch. The thyroid and submandibular glands appear satisfactory. Parotid glands appear satisfactory as well. A 4 mm intraparotid lymph node on the left measures at the upper limits of normal in size. Scattered prominent but not enlarged upper cervical lymph nodes measuring up to 1.1 cm on the left, r efer to coronal image 48 and 49. Otherwise, a few scattered nonenlarged lymph nodes are present on nirali th sides of the neck. Grade 1 anterolisthesis at C4-C5 and reversal of the normal cervical lordosis. Anterior plate spondyl osis lower cervical spine. IMPRESSION: 1. 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 NO DISCRETE MUCOSAL SPACE MASS IS SEEN AT THIS TIME. 2. THE VOCAL FOLDS APPEAR SYMMETRICAL. 3. A 4 MM INTRAPAROTID LYMPH NODE ON THE LEFT MEASURES AT THE UPPER LIMITS OF NORMAL IN SIZE FOR THIS REGION. THERE ARE ALSO A COUPLE PROMINENT BUT NOT ENLARGED UPPER CERVICAL LYMPH NODES ON THE LEFT ME ASURING UP TO 1.1 CM. THESE MAY BE REACTIVE/POST INFLAMMATORY. NO LYMPHADENOPATHY BY CT SIZE CRITERIA . 4. EXTENSIVE MOSAIC ATTENUATION WITHIN THE VISUALIZED UPPER LUNGS COULD REPRESENT ETIOLOGIES SUCH INTERSTITIAL PNEUMONITIS LIKE NSIP OR SMALL AIRWAYS DISEASE.
--- NOTE | 2018-05-17 22:08 | FL ---
MODIFIED SWALLOW / DEGLUTITION STUDY DATE OF EXAM: 05/17/2018 CLINICAL HISTORY: 67 year-old female left neck mass, aspiration, dysphagia mostly solid . Patient wit h removal of parathyroid adenoma with hoarseness and trouble swallowing since then. TECHNIQUE: Deglutition study is performed utilizing thin liquid barium, honey and nectar thick liqui d barium, barium thick applesauce, and barium coated cracker. Total fluoroscopy time: 1 minute 15 seconds. Total images: None. Real-time fluoroscopy support was provided to speech pathology. COMPARISON: None. FINDINGS: The oral and pharyngeal phases show satisfactory initiation and propagation with all modalities teste d. Normal mastication is seen with solid modalities tested. There is no evidence of penetration or aspiration with any modality tested. No significant pharyngeal residue was appreciated. Anterior end plate spondylosis at C5-C6 and trace grade 1 anterolisthesis at C4-C5. Changes cause mild impression onto the posterior wall of the upper cervical esophagus. IMPRESSION: No evidence for penetration or aspiration. Please refer to speech therapist notes for further details if necessary.
== END | disposition home or self-care (01) ==
LOC: RADCTMAIN 09:03
PROVIDERS: ATTEND Otolaryngology
DX: J35.1 Hypertrophy of tonsils (principal); T17.810A Gastric contents in other parts of respiratory tract causing asphyxiation, initial encounter
CPT/HCPCS: 92611; 82565; 84520; 74230; 70491; 36415; Q9967

== ENCOUNTER → 2018-06-03 | Outpatient (CLI) | payer MEDICARE ==
[2018-06-04 09:37] LABS: IgG Subclass 3 23.4 mg/dL (11.0-85.0); IgG Subclass 4 50.7 mg/dL (3.0-175.0)
== END | disposition home or self-care (01) ==
LOC: LABWHC1 09:29
PROVIDERS: ATTEND Internal Medicine Critical Care Medicine
DX: J45.909 Unspecified asthma, uncomplicated (principal)
CPT/HCPCS: 36415; 82787

== ENCOUNTER → 2018-06-08 | Outpatient (CLI) | payer MEDICARE ==
[2018-06-08 11:40] LABS: Blood Urea Nitrogen 18 mg/dL (7-17)
--- NOTE | 2018-06-08 12:52 | CT ---
EXAMINATION TYPE: CT chest w con DATE OF EXAM: 06/08/2018 COMPARISON: 11/20/2016 HISTORY: Recurrent bronchial infections and recent pneumonia. CT DLP: 261.3 mGycm Automated exposure control for dose reduction was used. CONTRAST: CT scan of the chest is performed with IV Contrast, patient injected with 100 mL of Isovue M300. FINDINGS: LUNGS: Changes of central bronchiectasis are noted. Linear change involving the left lower lobe sugge stive of scar or atelectasis. No consolidative pneumonia. There is a small irregular density within t he right upper lobe measuring 5 mm image 26 which is too small to characterize. Subsegmental consolid ation involving the left lower lobe is typical of scar or atelectasis no pleural effusion or pneumoth orax. Subpleural nodule coronal image 69 lingular segment left upper lobe measuring 5 mm. MEDIASTINUM: The ascending thoracic aorta measures approximately 4.3 x 4.3 cm and stable. The aortic root however measures approximately 5.2 x 4.8 cm and retrospectively also appears to be stable. The h eart is enlarged. No pathologic adenopathy. OTHER: There is a stable hypodense lesion left lobe of the liver measuring 12 Hounsfield units and 1 .9 cm. Smaller low density lesion in the margie hepatis also suggestive of a cyst. Mixing artifact wit hin the portal vein noted. Hypertrophic and degenerative change of the vertebral column. Heterogeneou s marrow changes are nonspecific. Findings are stable relative to the prior exam. IMPRESSION: 1. 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 2. There is a 5 mm somewhat irregular density within the right upper lobe too small to characterize. Recommend a 3-6 month follow-up CT scan to assess for stability. 3. No consolidative pneumonia. 4. simple appearing hepatic cysts. 5. Nonspecific stable bone marrow alteration. 6. Central bronchiectasis. 7. 5 mm subpleural nodular linear segment left upper lobe. Six-month follow-up recommended.
== END ==
LOC: RADCTMAIN 10:58
PROVIDERS: ATTEND Internal Medicine Critical Care Medicine
DX: I51.7 Cardiomegaly (principal); I71.2 Thoracic aortic aneurysm, without rupture; R91.8 Other nonspecific abnormal finding of lung field; J47.9 Bronchiectasis, uncomplicated; Z88.0 Allergy status to penicillin; Z88.1 Allergy status to other antibiotic agents
CPT/HCPCS: 82565; 84520; 71260; 36415; Q9967

== ENCOUNTER → 2018-09-20 | Outpatient (CLI) | payer MEDICARE ==
[2018-09-20 09:29] LABS: Basophils % (A) 1 %; Eosinophils # (A) 0.2 k/uL (0-0.7); Eosinophils % (A) 5 %; HCT 44.8 % (34.0-46.0); HGB 14.4 gm/dL (11.4-16.0); Lymphocytes # (A) 1.4 k/uL (1.0-4.8); Lymphocytes % (A) 31 %; MCH 29.9 pg (25.0-35.0); MCV 93.3 fL (80.0-100.0); Mean Platelet Volume 6.4; Monocytes # (A) 0.3 k/uL (0-1.0); Monocytes % (A) 7 %; Neutrophils # (A) 2.3 k/uL (1.3-7.7); Neutrophils % (A) 54 %; Platelet Count 281 k/uL (150-450); RDW 14.2 % (11.5-15.5); WBC 4.4 k/uL (3.8-10.6)
[2018-09-20 16:27] LABS: Vitamin D 25 Hydroxy 42.6 ng/mL (30.0-100.0)
[2018-09-20 17:15] LABS: Albumin 4.1 g/dL (3.80-4.90); Albumin/Globulin Ratio 1.86 (1.60-3.17); Anion Gap 8.1 mmol/L (4.00-12.00); Calcium 9.2 mg/dL (8.7-10.3); Carbon Dioxide 27.9 mmol/L (21.6-31.8); Globulin 2.2 g/dL (1.6-3.3); Potassium 3.9 mmol/L (3.5-5.5); Total Bilirubin 0.5 mg/dL (0.2-1.2); Total Protein 6.3 g/dL (6.2-8.2)
[2018-09-20 17:16] LABS: LDL Cholesterol,Calculated 107.8 mg/dL (0.0-131.0); VLDL Calculation 20.2 mg/dL (5.00-40.00)
[2018-09-20 18:02] LABS: Parathyroid Hormone Intact 69.3 pg/mL (14.0-72.0)
== END | disposition home or self-care (01) ==
LOC: LABWHC1 08:18
PROVIDERS: ATTEND Internal Medicine Endocrinology, Diabetes & Metabolism
DX: Z00.00 Encounter for general adult medical examination without abnormal findings (principal); E78.5 Hyperlipidemia, unspecified; E53.8 Deficiency of other specified B group vitamins; E21.0 Primary hyperparathyroidism
CPT/HCPCS: 36415; 80053; 80061; 82306; 82607; 83970; 85025

== ENCOUNTER → 2018-10-26 | Outpatient (CLI) | payer MEDICARE ==
[2018-10-26 08:11] LABS: Blood Urea Nitrogen 25 mg/dL (7-17)
--- NOTE | 2018-10-26 11:38 | CT ---
EXAMINATION TYPE: CT abdomen pelvis w con DATE OF EXAM: 10/26/2018 HISTORY: Right upper quadrant pain per order, history of low-grade mass removed from intestines. CT DLP: 727.1mGycm Automated Exposure Control for Dose Reduction was Utilized. CONTRAST: CT scan of the abdomen and pelvis is performed with IV Contrast, patient injected with 100 mL of Isov ue 300. COMPARISON: Most recent CT abdomen and pelvis study January 27, 2018 and older CTs. FINDINGS: LUNG BASES: Underlying cardiomegaly is redemonstrated. There is stable left basilar linear scarring. LIVER/GB: Some scattered simple appearing thin-walled cysts throughout the liver are redemonstrated a nd felt stable including subcentimeter hypodense lesions too small to further characterize. PANCREAS: No significant abnormality is seen. SPLEEN: No significant abnormality is seen. ADRENALS: No significant abnormality is seen. KIDNEYS: No significant abnormality is seen. BOWEL: Oral contrast reaches level of distal small bowel loops. There is redemonstration of prior dulce pauly near proximal transverse colon level with [id number] anastomosis right midabdomen. No suspicio us small or large bowel dilatation is seen. Sigmoid colonic diverticula are redemonstrated without CT evidence for diverticulitis. UTERUS/ADNEXA: Uterus is surgically absent. Stable prominence of cervical remnant bulging and anterio r bladder base axial image 80. LYMPH NODES: No greater than 1cm abdominal or pelvic lymph nodes are appreciated. OSSEOUS STRUCTURES: Moderate to advanced disc space narrowing L5-S1 level is redemonstrated. Facet ar thropathy lower lumbar levels is redemonstrated. OTHER: Stable small fat-containing umbilical hernia is present. IMPRESSION: No significant change from most recent prior. No significant new or acute finding is seen to account for patient's clinical symptoms.
== END | disposition home or self-care (01) ==
LOC: RADCTMAIN 07:30
PROVIDERS: ATTEND Surgery
DX: R10.11 Right upper quadrant pain (principal)
CPT/HCPCS: 82565; 84520; 74177; 36415; Q9967

== ENCOUNTER → 2019-01-10 | Outpatient (CLI) | payer MEDICARE ==
--- NOTE | 2019-01-12 10:28 | MM ---
Reason for exam: screening (asymptomatic). Last mammogram was performed 1 year ago. History: Patient is postmenopausal. Family history of breast cancer in sister at age 63. Benign US biopsy breast VAD LT of the left breast, December 31, 2016. Benign US biopsy breast add'l VAD RT of the right breast, December 31, 2016. Benign US left guided mammotome of the left breast, May 11, 2008. Benign cyst aspiration of the right breast. Took estrogen for 7 years beginning at age 50. Took progesterone for 6 years. Physical Findings: A clinical breast exam by your physician is recommended on an annual basis and results should be correlated with mammographic findings. MG 3D Screening Mammo W/Cad Bilateral CC and MLO view(s) were taken. Prior study comparison: December 27, 2017, bilateral MG 3d screening mammo w/cad. December 31, 2016, bilateral MG diagnostic víctor BI wo CAD. The breast tissue is heterogeneously dense. This may lower the sensitivity of mammography. Previous mammotome biopsy in the right and left breast. No significant changes when compared with prior studies. ASSESSMENT: Benign, BI-RAD 2 RECOMMENDATION: Routine screening mammogram of both breasts in 1 year.
== END ==
LOC: RADMAMWWP 07:13
PROVIDERS: ATTEND Family Medicine
DX: Z12.31 Encounter for screening mammogram for malignant neoplasm of breast (principal)
CPT/HCPCS: 77063; 77067

== ENCOUNTER → 2019-03-27 | Outpatient (CLI) | payer MEDICARE ==
[2019-03-27 17:35] LABS: African American GFR (CKD) 86.6 (60.0-200.0); Albumin 4.2 g/dL (3.80-4.90); BUN/Creat Ratio 22.5 Ratio (12.00-20.00); Calcium 9.2 mg/dL (8.7-10.3); Globulin 2.1 g/dL (1.6-3.3); Non-African American GFR(CKD) 74.7 (60.0-200.0); Potassium 3.9 mmol/L (3.5-5.5); Total Bilirubin 0.5 mg/dL (0.2-1.2); Total Protein 6.3 g/dL (6.2-8.2)
[2019-03-27 18:46] LABS: Vitamin D 25 Hydroxy 39.2 ng/mL (30.0-100.0)
== END | disposition home or self-care (01) ==
LOC: LABWHC1 09:50
PROVIDERS: ATTEND Internal Medicine Endocrinology, Diabetes & Metabolism
DX: E55.9 Vitamin D deficiency, unspecified (principal)
CPT/HCPCS: 36415; 80053; 82306; 83970

== ENCOUNTER → 2019-06-05 | Outpatient (CLI) | payer MEDICARE ==
[2019-06-05 08:09] LABS: African American GFR (CKD) >90 (>60 ml/min/1.73 sqM); Blood Urea Nitrogen 18 mg/dL (7-17); Non-African American GFR(CKD) 81 (>60 ml/min/1.73 sqM)
--- NOTE | 2019-06-05 14:01 | CT ---
CT CHEST FOR PULMONARY EMBOLISM. EXAMINATION TYPE: CT angio chest DATE OF EXAM: 06/05/2019 INDICATION: Thoracic aortic aneurysm, without rupture CT DLP: 221.2 mGycm, Automated exposure control for dose reduction was used. CONTRAST: Patient injected with 100 mL of Isovue 370. COMPARISON: 06/08/2018 TECHNIQUE: CT of the chest is performed on a spiral scan at 2 mm thick sections. Study is performed with intravenous contrast timed for evaluation for pulmonary embolism. This will limit additional po rtions of the evaluation. 3-D MIP images reconstructed by the technologist are reviewed on the compu ter in the coronal and sagittal planes. FINDINGS: No persistent filling defects are evident to suggest an acute pulmonary embolism. No mediastinal or hilar adenopathy enlarged by CT criteria is evident. The ascending aorta diameter at the level of the main pulmonary artery is 4.1 cm. The main pulmonary artery diameter at the bifur cation is 2.5 cm. Similar to the aortic root this measures 4.5 cm AP by 4.9 cm transverse. No aortic dissection is evident. The aorta tapers from the arch to the diaphragm. Some streak opacities in the posterior left lung base may be atelectasis. Limited CT section through the upper abdomen. Some mild fatty infiltration of the liver may be presen t. IMPRESSIONS: 1. Ascending thoracic aortic aneurysm measuring 4.5 x 4.9 cm which is essentially stable from the [facility] of 06/08/2018.
== END | disposition home or self-care (01) ==
LOC: RADCTMAIN 07:40
PROVIDERS: ATTEND Internal Medicine Critical Care Medicine
DX: I71.2 Thoracic aortic aneurysm, without rupture (principal); Z88.1 Allergy status to other antibiotic agents
CPT/HCPCS: 82565; 84520; 71275; 36415; Q9967

== ENCOUNTER 2019-06-21 11:16 | Day surgery (SDC) | payer MEDICARE ==
[2019-06-16 15:32] VITALS: BMI 27.4
[~2019-06-21 11:16] MED LIST changes: -ALVIMOPAN 12 MG CAPSULE PO ONE; -HEPARIN SODIUM,PORCINE 5,000 UNIT/ML 1 ML VIAL SQ ONE; +LACTATED RINGERS 1,000 ML IV SCH; -ceFAZolin IN SWFI 2 GM/20 ML SYRINGE IVP ONE; -metroNIDAZOLE-NS PMX 500 MG in SALINE 1 100ML.BAG IVPB ONE
[2019-06-21] MEDS ORDERED: LACTATED RINGERS 1,000 ML IV ONE (11:40)
[2019-06-21 11:57] VITALS: RESP 16; TEMP 97.6
[2019-06-21] MEDS ORDERED: PROPOFOL 10 MG/ML 20 ML VIAL IV ONE (12:06)
--- NOTE | 2019-06-21 12:09 | P.GSHP ---
History of Present Illness H&P Date: 06/21/19 Chief Complaint: Colon cancer screening, personal history of colon cancer Patient here today for colonoscopy. Last colonoscopy a year ago. Patient with history of mucinous neoplasm of the appendix. Has been having some right-sided pain although better lately. Pain is worse with spicy foods. Past Medical History Past Medical History: Asthma, Hypertension, Thyroid Disorder Additional Past Medical History / Comment(s): HX PARATHYROID TUMOR. seasonal allergies History of Any Multi-Drug Resistant Organisms: None Reported Past Surgical History: Appendectomy, Bladder Surgery, Bowel Resection, Hernia Repair, Hysterectomy Additional Past Surgical History / Comment(s): PARATHYROID TUMOR EXC, BENIGN, 2017. RECTOCELE. BLADDER SUSPENSION. HIATAL HERNIA REPAIR 2016. COLONOSCOPY, EGD. Bilateral breast biopsies with benign findings, Past Anesthesia/Blood Transfusion Reactions: Motion Sickness, Postoperative Nausea & Vomiting (PONV) Additional Past Anesthesia/Blood Transfusion Reaction / Comment(s): PONV W/ ETHER YEARS AGO. Smoking Status: Never smoker - Past Family History Sister(s) Family Medical History: Cancer Additional Family Medical History / Comment(s): breast Medications and Allergies Home Medications Medication Instructions Recorded Confirmed Type Albuterol Sulfate [Proair Hfa] 1 - 2 puff INHALATION RT-Q6H PRN 11/23/16 06/21/19 History Aspirin 81 mg PO DAILY 11/23/16 06/21/19 History Fluticasone/Salmeterol [Advair Hfa 2 puff INHALATION RT-BID 11/23/16 06/21/19 History 115-21 Mcg Inhaler] Montelukast [Singulair] 10 mg PO HS 11/23/16 06/21/19 History amLODIPine [Norvasc] 2.5 mg PO HS 11/23/16 06/21/19 History Allergies Allergy/AdvReac Type Severity Reaction Status Date / Time amoxicillin [From Augmentin] Allergy Nausea & Verified 06/21/19 11:57 Vomiting & Diarrhea ciprofloxacin [From Cipro] Allergy Nausea & Verified 06/21/19 11:57 Vomiting clavulanic acid Allergy Nausea & Verified 06/21/19 11:57 [From Augmentin] Vomiting & Diarrhea mold Allergy Cough Verified 06/21/19 11:57 Surgical - Exam Vital Signs Temp Pulse Resp BP Pulse Ox 97.6 F 64 16 129/77 96 06/21/19 11:40 06/21/19 11:40 06/21/19 11:40 06/21/19 11:40 06/21/19 11:40 Physical exam: General: Well-developed, well-nourished HEENT: Normocephalic, sclerae nonicteric Abdomen: Nontender, nondistended Extremities: No edema Neuro: Alert and oriented Assessment and Plan (1) Colon cancer screening Narrative/Plan: Will proceed with colonoscopy at this time. Current Visit: Yes Status: Acute Code(s): Z12.11 - ENCOUNTER FOR SCREENING FOR MALIGNANT NEOPLASM OF COLON SNOMED Code(s): 163529850
--- NOTE | 2019-06-21 12:19 | P.PCN ---
Date of Procedure: 06/21/19 Procedure(s) Performed: PREOPERATIVE DIAGNOSIS: Personal history of colon cancer, screening POSTOPERATIVE DIAGNOSIS: Mild diverticulosis PROCEDURE: Colonoscopy ANESTHESIA: MAC SURGEON: Adriel Abbott M.D. SPECIMENS: None ENDOSCOPIC PROCEDURE: The patient was placed on the endoscopy table in the left decubitus position. The Olympus colonoscope was inserted into the anus and passed under direct visualization to the mid transverse colon where the ileocolonic anastomosis was present. The anastomosis was widely patent. From that point the scope was slowly withdrawn inspecting all surfaces carefully. There were no neoplastic inflammatory or polypoid lesions throughout the transverse, descending, sigmoid and rectum. There was mild left-sided diverticulosis noted. Digital rectal examination was normal. The patient was taken to the recovery room in stable condition per anesthesia guidelines. RECOMMENDATIONS: Await biopsy results. Follow-up colonoscopy 3 years.
[2019-06-21 13:09] VITALS: BP 130/70; PULSE 56
== END 2019-06-21 13:25 | disposition home or self-care (01) ==
LOC: ORWHC2ENDO 11:16
PROVIDERS: ATTEND Surgery
DX: Z12.11 Encounter for screening for malignant neoplasm of colon (principal); Z85.038 Personal history of other malignant neoplasm of large intestine; K57.30 Diverticulosis of large intestine without perforation or abscess without bleeding; Z98.0 Intestinal bypass and anastomosis status; I10 Essential (primary) hypertension; E07.9 Disorder of thyroid, unspecified; R91.1 Solitary pulmonary nodule; J45.909 Unspecified asthma, uncomplicated; K21.9 Gastro-esophageal reflux disease without esophagitis; K76.89 Other specified diseases of liver; Z85.89 Personal history of malignant neoplasm of other organs and systems; Z90.710 Acquired absence of both cervix and uterus; Z80.3 Family history of malignant neoplasm of breast; Z79.82 Long term (current) use of aspirin; Z79.899 Other long term (current) drug therapy; Z79.51 Long term (current) use of inhaled steroids; Z79.52 Long term (current) use of systemic steroids; Z91.048 Other nonmedicinal substance allergy status; Z88.1 Allergy status to other antibiotic agents; Z88.0 Allergy status to penicillin
CPT/HCPCS: J2704; G0105

== ENCOUNTER → 2019-09-22 | Outpatient (CLI) | payer MEDICARE ==
--- NOTE | 2019-09-22 13:37 | US ---
EXAMINATION TYPE: US thyroid st tissue head/neck DATE OF EXAM: 09/22/2019 COMPARISON: CT & US 2017 CLINICAL HISTORY: Z86.39 HX OF HYPERPARATHYROIDISM,R59.0 ENLARGED LYMPHNODE. Neck swelling GLAND SIZE: Right Lobe: 3.3 x 1.9 x 1.5 cm Overall Parenchyma: homogenous Left Lobe: 3.1 x 1.7 x 1.1 cm Overall Parenchyma: homogeneous Isthmus Thickness: 0.2 cm NODULES RIGHT: # of nodules measured on right: 0 LEFT: # of nodules measured on left: 0 ISTHMUS: # of nodules measured in the isthmus: 0 Bilateral neck scanned, no evidence of lymphadenopathy. IMPRESSION: 1. Normal thyroid scan
[2019-09-22 14:33] LABS: ALT 22 U/L (4-34); AST 24 U/L (14-36); African American GFR (CKD) >90 (>60 ml/min/1.73 sqM); Albumin 4.2 g/dL (3.5-5.0); Alkaline Phosphatase 79 U/L (38-126); Anion Gap 6 mmol/L; Blood Urea Nitrogen 19 mg/dL (7-17); Calcium 9.4 mg/dL (8.4-10.2); Carbon Dioxide 29 mmol/L (22-30); Chloride 102 mmol/L (98-107); Glucose 85 mg/dL (74-99); Non-African American GFR(CKD) 82 (>60 ml/min/1.73 sqM); Potassium 3.7 mmol/L (3.5-5.1); Sodium 137 mmol/L (137-145); Total Bilirubin 0.4 mg/dL (0.2-1.3); Total Protein 7.1 g/dL (6.3-8.2)
== END | disposition home or self-care (01) ==
LOC: RADUSWWP 13:00
PROVIDERS: ATTEND Internal Medicine Endocrinology, Diabetes & Metabolism
DX: R59.0 Localized enlarged lymph nodes (principal); Z86.39 Personal history of other endocrine, nutritional and metabolic disease
CPT/HCPCS: 76536; 80053; 82306; 83970

== ENCOUNTER → 2020-01-15 | Outpatient (CLI) | payer MEDICARE ==
--- NOTE | 2020-01-16 12:41 | MR ---
EXAMINATION TYPE: MR brain/orbits wo/w con DATE OF EXAM: 01/15/2020 COMPARISON: 06/27/2010 HISTORY: Double Vision, 4th Nerve Palsy TECHNIQUE: Multiplanar, multisequence images of the brain and brainstem is performed without and with IV contras t, utilizing 7.5 mL intravenous Gadavist . FINDINGS: Diffusion weighted images demonstrate no evidence of a recent infarct or other diffusion ab normality. There is mild generalized degenerative change. There are numerous focal areas of abnormal signal scattered throughout the white matter bilaterally in a nonspecific pattern. Findings felt to B E most typical remote microvascular ischemia. Small focal area of abnormal signal involving the basal ganglia likely in the basis of remote lacunar infarction.' Midline structures demonstrate normal morphology. The craniocervical junction appears within normal limits. Partially empty sella turcica incidentally noted. Post contrast images demonstrate no abnorma l enhancement. The dural venous sinuses appear patent. There are changes of chronic sinusitis. Orbits: Optic nerves are of normal caliber and symmetric. Optic chiasm has a normal appearance. No orbital fl attening. No intraconal or extraconal enhancing lesion. Extraocular muscles are symmetric and have a normal appearance. Trace amount of fluid surrounding the optic nerves. IMPRESSION: 1. Trace amount of fluid surrounding the optic nerves can occasionally be seen with papilledema. No o rbital flattening. No intra or extraconal lesions are seen. 2. Partially empty sella turcica. 3. Degenerative and nonspecific white matter changes most typical of remote microvascular ischemia. 4. Chronic sinusitis.
== END | disposition home or self-care (01) ==
LOC: RADMRIMAIN 09:37
PROVIDERS: ATTEND Ophthalmology
DX: R90.82 White matter disease, unspecified (principal); H49.12 Fourth [trochlear] nerve palsy, left eye
CPT/HCPCS: 70543; 70553; A9585

== ENCOUNTER → 2020-02-12 | Outpatient (CLI) | payer MEDICARE ==
--- NOTE | 2020-02-13 06:59 | US ---
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 Double vision EXAM MEASUREMENTS: RIGHT: Peak Systolic Velocity (PSV) cm/sec ----- Right CCA: 54.0 ----- Right ICA: 49.6 ----- Right ECA: 54.0 ICA/CCA ratio: 0.9 RIGHT: End Diastole cm/sec ----- Right CCA: 16.4 ----- Right ICA: 18.4 ----- Right ECA: 9.2 LEFT: Peak Systolic Velocity (PSV) cm/sec ----- Left CCA: 46.1 ----- Left ICA: 80.1 ----- Left ECA: 64.7 ICA/CCA ratio: 1.7 LEFT: End Diastole cm/sec ----- Left CCA: 14.1 ----- Left ICA: 31.3 ----- Left ECA: 20.9 VERTEBRALS (direction of flow): Right Vertebral: Antegrade Left Vertebral: Antegrade Rhythm: Normal IMPRESSION: Bilateral intimal thickening, no elevated velocities, no significant stenosis. Criteria for Assigning % of Stenosis / Diameter reduction (Estimation based on the indirect measurements of the internal carotid artery velocities (ICA PSV). 1. Normal (no stenosis)=ICA PSV < 125 cm/s: ratio < 2.0: ICA EDV<40 cm/s. 2. Less than 50% stenosis=ICA PSV < 125 cm/s: ratio < 2.0: ICA EDV<40 cm/s. 3. 50 to 69% stenosis=ICA PSV of 125 to 230 cm/s: ration 2.0 ? 4.0: ICA EDV 40-100 cm/s. 4. Greater than 70% stenosis to near occlusion= ICA PSV > 230 cm/s: ratio > 4.0: ICA EDV > 100 cm/s. 5. Near occlusion= ICA PSV velocities may be low or undetectable: variable ratio and ICA EDV. 6. Total occlusion=unable to detect flow.
== END | disposition home or self-care (01) ==
LOC: RADUSWWP 15:37
PROVIDERS: ATTEND Family Medicine
DX: H53.2 Diplopia (principal); R42 Dizziness and giddiness
CPT/HCPCS: 93880

== ENCOUNTER → 2020-03-21 | Outpatient (CLI) | payer MEDICARE ==
--- NOTE | 2020-03-25 11:31 | MM ---
Reason for exam: screening (asymptomatic). Last mammogram was performed 1 year and 2 months ago. History: Patient is postmenopausal and history of other cancer. Family history of breast cancer in sister at age 63. Benign US biopsy breast VAD LT of the left breast, December 31, 2016. Benign US biopsy breast add'l VAD RT of the right breast, December 31, 2016. Benign US left guided mammotome of the left breast, May 11, 2008. Benign cyst aspiration of the right breast. Took estrogen for 7 years beginning at age 50. Took progesterone for 6 years. Physical Findings: A clinical breast exam by your physician is recommended on an annual basis and results should be correlated with mammographic findings. MG 3D Screening Mammo W/Cad Bilateral CC and MLO view(s) were taken. Prior study comparison: January 10, 2019, bilateral MG 3d screening mammo w/cad. December 27, 2017, bilateral MG 3d screening mammo w/cad. The breast tissue is heterogeneously dense. This may lower the sensitivity of mammography. Benign appearing bilateral calcifications. Previous mammotome biopsy in the right and left breast. No significant changes when compared with prior studies. ASSESSMENT: Benign, BI-RAD 2 RECOMMENDATION: Routine screening mammogram of both breasts in 1 year.
== END | disposition home or self-care (01) ==
LOC: RADMAMWWP 10:20
PROVIDERS: ATTEND Family Medicine
DX: Z12.31 Encounter for screening mammogram for malignant neoplasm of breast (principal)
CPT/HCPCS: 77063; 77067

== ENCOUNTER → 2020-05-24 | Outpatient (CLI) | payer MEDICARE ==
--- NOTE | 2020-05-24 18:04 | CT ---
EXAMINATION TYPE: CT angio chest DATE OF EXAM: 05/24/2020 4:51 PM COMPARISON: 06/05/2019 HISTORY: Thoracic aortic aneurysm w/out rupture. Pt states since last test, increased dizziness, SOB, cold sweats, blurry vision and chest pain. Hx HTN/asthma CT DLP: 507.10 mGycm Automated exposure control for dose reduction was used. CONTRAST: CTA scan of the thorax is performed with IV Contrast, patient injected with 100 mL of Isovue 370, pul monary embolism protocol. . FINDINGS: LUNGS: Subsegmental areas of consolidation. Somewhat mild interlobular septal thickening at the lung bases could be associated with chronic interstitial lung disease. No sizable pleural effusion. No pne umothorax. MEDIASTINUM: There is an aneurysm of the ascending aorta measuring approximately 4.5 x 4.9 cm. Near t he aortic root in similar to the prior exam. No evidence of aortic dissection. Descending thoracic ao rta is of normal caliber. OTHER: Hypertrophic and degenerative change of the spine. IMPRESSION: 1. Stable ascending aortic aneurysm measuring approximately 4.9 x 4.5 cm extending to the aortic root .
== END | disposition home or self-care (01) ==
LOC: RADCTMAIN 15:19
PROVIDERS: ATTEND Internal Medicine Interventional Cardiology
DX: I71.2 Thoracic aortic aneurysm, without rupture (principal)
CPT/HCPCS: 71275; 82565; 84520

== ENCOUNTER 2020-06-05 09:59 | Day surgery (SDC) | payer MEDICARE ==
[2020-06-03 15:13] VITALS: BMI 27.9
[~2020-06-05 09:59] MED LIST changes: +ALPRAZolam 0.25 MG TAB PO PRN; +ALPRAZolam 0.5 MG TAB PO PRN; +ASPIRIN 325 MG TAB PO STA; -LACTATED RINGERS 1,000 ML IV SCH; -LIDOCAINE 1% 20 ML VIAL (10MG/ML) FOR IV START INTRADERMA PRN; +NITROGLYCERIN SL TABS 0.4 MG TAB SUBLINGUAL PRN; +SODIUM CHLORIDE 0.9% 1,000 ML in EMPTY BAG 1 BAG IV ONE
[2020-06-05] MEDS ORDERED: SODIUM CHLORIDE 0.9% 1,000 ML IV ONE (10:18)
[2020-06-05 10:38] VITALS: TEMP 98.1
[2020-06-05] MEDS ORDERED: fentaNYL (PF) 50 MCG/ML 2 ML AMP ONE (12:52)
[2020-06-05] MEDS ORDERED: IV FLUID CONTINUATION 800 ML IV ONE (13:00)
[2020-06-05] MEDS ORDERED: LIDOCAINE 1% INJ 10MG/ML (20 ML MDV) ONE (13:05)
[2020-06-05] MEDS ORDERED: BENZOCAINE SPRAY 1 CAN MUCOUS MEM ONE (13:19)
[2020-06-05] MEDS ORDERED: fentaNYL (PF) 50 MCG/ML 2 ML AMP IV ONE (13:19)
[2020-06-05] MEDS ORDERED: MIDAZOLAM 2 MG/2 ML VIAL IV ONE (13:20)
[2020-06-05] MEDS: MIDAZOLAM 2 MG/2 ML VIAL IV ONE ×2 (13:22→13:25)
[2020-06-05] MEDS ORDERED: VERAPAMIL 2.5 MG/ML 2 ML AMP ONE (13:44)
[2020-06-05] MEDS ORDERED: LIDOCAINE 1% INJ 10MG/ML (20 ML MDV) SQ ONE (13:46)
[2020-06-05] MEDS ORDERED: IOPAMIDOL-370 50ML BTL INJ ONE (14:08)
[2020-06-05] MEDS ORDERED: IOPAMIDOL-370 125ML BTL INJ ONE (14:10)
[2020-06-05] MEDS ORDERED: SODIUM CHLORIDE 0.9% 1,000 ML IV SCH (14:15)
[2020-06-05 16:58] VITALS: RESP 16
[2020-06-05 18:04] VITALS: BP 163/76; PULSE 64
--- NOTE | 2020-06-05 19:38 | ECHOT ---
TRANSESOPHAGEAL ECHOCARDIOGRAM TRANSESOPHAGEAL ECHOCARDIOGRAM: DATE OF SERVICE: 06/05/2020. INDICATION: Aortic insufficiency. COMPLICATIONS: None. LEVEL OF SEDATION: Moderate, with sedation length of about 15 minutes. PROCEDURE DESCRIPTION: After obtaining informed consent, the patient was brought to the transesophageal echocardiogram suite. Pulse oximetry and heart rate monitors were attached to the patient. Subsequently the transesophageal echocardiogram probe was advanced through the bite guard to the mid esophagus, where 2D echocardiogram images as well as color Doppler images of various cardiac structures were obtained. Particular attention was made to the aortic valve. The transesophageal echocardiogram was performed using 2D echocardiogram images, color Doppler, pulse Doppler and continuous-wave Doppler. The procedure was completed without any complication. FINDINGS: The left ventricular dimension and systolic function appeared to be within normal limits. The ejection fraction appeared to be in the range of 55% to 60%. The right ventricle appeared to be of normal size and function. The left atrium appeared to be dilated as well as the right atrium. The aortic valve appeared to be a trileaflet valve without stenosis, with evidence of what seems to be moderate to severe aortic insufficiency. The mitral valve had mild mitral insufficiency. There was mild to moderate tricuspid regurgitation seen. The aortic root was definitely dilated. CONCLUSION: 1. Normal left ventricular dimension and systolic function. 2. Normal right ventricular dimension and systolic function. 3. Moderate biatrial enlargement. 4. Trileaflet aortic valve without stenosis with moderate to severe insufficiency. 5. Normal mitral valve leaflets with mild MR only. 6. Mild to moderate tricuspid regurgitation. 7. No evidence of pericardial effusion. MMODL / IJN: [id number] /
--- NOTE | 2020-06-05 19:48 | CC ---
CARDIAC CATHETERIZATION REPORT DATE OF SERVICE: 06/05/2020 PERFORMING PHYSICIAN: Sancho López M.D. PROCEDURE PERFORMED: 1. Selective right and left coronary angiogram. 2. Aortic root angiogram. INDICATION: This is a 69-year-old female patient with known aortic aneurysm with known aortic root dilatation and aortic insufficiency who was experiencing symptoms of shortness of breath with exertion and symptoms of generalized fatigue and weakness. She underwent a MARIA ESTHER today and she was brought to undergo a heart catheterization. APPROACH: Right common femoral artery. COMPLICATIONS: None. LEVEL OF SEDATION: Moderate, with sedation length of about 17 minutes. PROCEDURE DESCRIPTION: After obtaining informed consent, the patient was brought to the cardiac mini lab operator. The right common femoral artery was cannulated using micropuncture technique. The micropuncture wire passed easily. Then I placed a 6-Swiss sheath at the right common femoral artery. Selective right and left coronary angiogram was performed using JR4 and JL5 catheters. Left heart catheterization was not performed. The aortic root angiogram was performed using 6-Swiss pigtail catheter. The procedure was completed without any complication. SELECTIVE CORONARY ANGIOGRAM: 1. The right coronary artery is a large-caliber vessel. It is a dominant vessel. The RCA is angiographically normal. It distally bifurcates into PDA and PLV branches. Both appeared to be angiographically normal. 2. The left main is angiographically normal. It furcates into left circumflex, ramus intermedius and left anterior descending artery. 3. The left circumflex is a large-caliber vessel. It is a nondominant vessel. The left circumflex is angiographically normal but appeared to be tortuous. In the mid portion it gives rise to a large OM branch which appeared to be angiographically normal. 4. The ramus intermedius is a large-caliber vessel, tortuous but angiographically normal. 5. The LAD is a large-caliber vessel as well and appeared to be angiographically normal. It gives rise to 2 small diagonal branches. They appeared to be angiographically normal. AORTIC ROOT ANGIOGRAM: The aortic root angiogram was performed in the BULGARIAN projection and using a power injection. There is at least 3+ aortic insufficiency seen. CONCLUSION: 1. Normal coronary angiogram. 2. Dominant right coronary system. 3. Three plus aortic insufficiency seen. 4. Dilated aortic root. POST-PROCEDURE MANAGEMENT: 1. Maximize medical treatment. 2. Decrease the afterload. 3. Schedule the patient to be seen by cardiothoracic surgeon. 4. Follow up with the patient. MMODL / IJN: [id number] /
== END 2020-06-05 19:10 ==
LOC: CATHCVL 09:59 → 3NCARDOBS 14:02 → CATHCVL 19:10
PROVIDERS: ATTEND Internal Medicine Interventional Cardiology
DX: I08.3 Combined rheumatic disorders of mitral, aortic and tricuspid valves (principal); I71.2 Thoracic aortic aneurysm, without rupture; I47.1 Supraventricular tachycardia; I10 Essential (primary) hypertension; E78.00 Pure hypercholesterolemia, unspecified; J45.909 Unspecified asthma, uncomplicated; Z88.0 Allergy status to penicillin; Z88.1 Allergy status to other antibiotic agents; Z79.51 Long term (current) use of inhaled steroids; Z79.899 Other long term (current) drug therapy
CPT/HCPCS: 93312; 93320; 93325; 93454; 93567; C1760; C1769 ×2; C1894; J2250; J2001; J3010; Q9967 ×2

== ENCOUNTER → 2020-07-15 | Outpatient (CLI) | payer MEDICARE | END | disposition home or self-care (01) | LOC: LABWHC1 08:41 | PROVIDERS: ATTEND Internal Medicine Endocrinology, Diabetes & Metabolism | DX: Z86.39 Personal history of other endocrine, nutritional and metabolic disease (principal); E55.9 Vitamin D deficiency, unspecified | CPT/HCPCS: 36415; 82306; 83970 ==

== ENCOUNTER → 2020-11-01 | Outpatient (CLI) | payer MEDICARE ==
[2020-11-01 16:10] LABS: Albumin 4.5 g/dL (3.80-4.90); Albumin/Globulin Ratio 1.96 (1.60-3.17); BUN/Creat Ratio 25.56 Ratio (12.00-20.00); Calcium 9.8 mg/dL (8.7-10.3); Globulin 2.3 g/dL (1.6-3.3); Non-African American GFR(CKD) 63.9 (60.0-200.0); Potassium 3.9 mmol/L (3.5-5.5); Total Bilirubin 0.6 mg/dL (0.2-1.2); Total Protein 6.8 g/dL (6.2-8.2)
== END | disposition home or self-care (01) ==
LOC: LABWHC1 08:03
PROVIDERS: ATTEND Internal Medicine Endocrinology, Diabetes & Metabolism
DX: E55.9 Vitamin D deficiency, unspecified (principal); Z86.39 Personal history of other endocrine, nutritional and metabolic disease
CPT/HCPCS: 36415; 80053; 82306; 83970

== ENCOUNTER → 2020-11-05 | Outpatient (CLI) | payer MEDICARE ==
--- NOTE | 2020-11-05 12:58 | US ---
EXAMINATION TYPE: US thyroid st tissue head/neck DATE OF EXAM: 11/05/2020 COMPARISON: Ultrasound dated 09/22/2019 CLINICAL HISTORY: R59.0 Localized enlarged lymph nodes in neck. GLAND SIZE: Right Lobe: 3.0 s 1.9 x 1.2 cm Overall Parenchyma: heterogenous Left Lobe: 3.4 x 1.6 x 0.8 cm Overall Parenchyma: heterogeneous Isthmus Thickness: 3 cm NODULES RIGHT: # of nodules measured on right: 0 LEFT: # of nodules measured on left: 0 ISTHMUS: # of nodules measured in the isthmus: 0 Bilateral neck scanned, no evidence of lymphadenopathy. IMPRESSION: Thyroid gland is small in size, stable compared to prior. No evident adenopathy in the limited scanni ng of the neck, consider CT of the neck with contrast for better evaluation 2017 ACR TI-RADS LEVEL: *Highest TI-RADS level nodule reported
== END ==
LOC: RADUSWWP 10:16
PROVIDERS: ATTEND Internal Medicine Endocrinology, Diabetes & Metabolism
DX: R59.0 Localized enlarged lymph nodes (principal)
CPT/HCPCS: 76536

== ENCOUNTER → 2021-01-21 | Outpatient (CLI) | payer MEDICARE ==
[2021-01-21 19:06] LABS: Chol/HDL Ratio 2.13; LDL Cholesterol,Calculated 84.8 mg/dL (0.0-131.0); VLDL Calculation 10.2 mg/dL (5.00-40.00)
== END | disposition home or self-care (01) ==
LOC: LABWHC1 07:44
PROVIDERS: ATTEND Internal Medicine Interventional Cardiology
DX: E78.2 Mixed hyperlipidemia (principal)
CPT/HCPCS: 36415; 80061; 84450; 84460

== ENCOUNTER → 2021-04-04 | Outpatient (CLI) | payer MEDICARE ==
--- NOTE | 2021-04-06 22:30 | CT ---
EXAMINATION TYPE: CT angio chest DATE OF EXAM: 04/04/2021 COMPARISON: 05/24/2020 HISTORY: 70-year-old female I 71.2, thoracic aortic aneurysm without rupture TECHNIQUE: Contiguous axial scanning of the chest performed with IV Contrast, patient injected with 1 00 mL of Isovue 370. Coronal/sagittal MIP reconstructions performed. 3-D reconstructions generated on a dedicated independent workstation. CT DLP: 234 mGycm Automated exposure control for dose reduction was used. FINDINGS: Heart is mildly enlarged without pericardial effusion. Aortic root aneurysmal at 5.0 cm versus 4.8 cm, previously. Ascending aorta aneurysmal at 5.1 cm versus 5.0 cm, previously. Proximal arch aneurysmal at 4.3 cm versus 4.2 cm, previously. Bovine configuration to the aortic arch. Ectatic upper descending thoracic aorta 3.1 cm versus 2.9 cm, previously. No thoracic lymphadenopathy by CT size criteria. Bands of scarring at the left base unchanged. Mild biapical pleural-parenchymal scarring is unchanged . No consolidation or pleural effusion. Tiny hiatal hernia. Visualized upper abdomen shows no gross abnormality. Tiny fat-containing [place] k hernia posteromedial right hemidiaphragm. Bones: Benign hemangioma within the T6 vertebral body redemonstrated. No osseous destructive process. IMPRESSION: 1. STABLE CARDIOMEGALY. 2. ANEURYSMAL AORTIC ROOT MEASURES SLIGHTLY INCREASED AT 5.0 CM VERSUS 4.8 CM, PREVIOUSLY. 3. ASCENDING AORTA 5.1 CM VERSUS 5.0 CM, PREVIOUSLY. 4. PROXIMAL ARCH AT 4.3 CM VERSUS 4.2 CM, PREVIOUSLY. 5. CONTINUED FOLLOW-UP RECOMMENDED.
== END | disposition home or self-care (01) ==
LOC: RADCTMAIN 11:06
PROVIDERS: ATTEND Internal Medicine Interventional Cardiology
DX: I71.2 Thoracic aortic aneurysm, without rupture (principal); I51.7 Cardiomegaly
CPT/HCPCS: 82565; 84520; 71275; 36415; Q9967

== ENCOUNTER → 2021-04-11 | Outpatient (CLI) | payer MEDICARE ==
--- NOTE | 2021-04-14 09:51 | MM ---
Reason for exam: screening (asymptomatic). Last mammogram was performed 1 year and 1 month ago. History: Patient is postmenopausal and history of other cancer. Family history of breast cancer in sister at age 63. Benign US biopsy breast VAD LT of the left breast, December 31, 2016. Benign US biopsy breast add'l VAD RT of the right breast, December 31, 2016. Benign US left guided mammotome of the left breast, May 11, 2008. Benign cyst aspiration of the right breast. Took estrogen for 7 years beginning at age 50. Took progesterone for 6 years. Physical Findings: A clinical breast exam by your physician is recommended on an annual basis and results should be correlated with mammographic findings. MG 3D Screening Mammo W/Cad Bilateral CC and MLO view(s) were taken. Prior study comparison: March 21, 2020, bilateral MG 3d screening mammo w/cad. January 10, 2019, bilateral MG 3d screening mammo w/cad. December 27, 2017, bilateral MG 3d screening mammo w/cad. The breast tissue is heterogeneously dense. This may lower the sensitivity of mammography. Previous mammotome biopsy in the right breast and left breast x 2. There is no discrete abnormality. ASSESSMENT: Benign, BI-RAD 2 RECOMMENDATION: Routine screening mammogram of both breasts in 1 year.
== END | disposition home or self-care (01) ==
LOC: RADMAMWWP 08:26
PROVIDERS: ATTEND Family Medicine
DX: Z12.31 Encounter for screening mammogram for malignant neoplasm of breast (principal); Z78.0 Asymptomatic menopausal state; Z79.818 Long term (current) use of other agents affecting estrogen receptors and estrogen levels; Z85.9 Personal history of malignant neoplasm, unspecified; Z80.3 Family history of malignant neoplasm of breast
CPT/HCPCS: 77063; 77067

== ENCOUNTER → 2021-05-06 | Outpatient (CLI) | payer MEDICARE ==
[2021-05-06 18:21] LABS: Basophils # (A) 0.04 X 10*3/uL (0.00-0.10); Basophils % (A) 0.8 %; Eosinophils # (A) 0.19 X 10*3/uL (0.04-0.35); Eosinophils % (A) 3.6 %; HCT 41.8 % (37.2-46.3); HGB 13.4 g/dL (12.0-15.0); Lymphocytes # (A) 2.02 X 10*3/uL (0.90-5.00); Lymphocytes % (A) 38.3 %; MCH 29.5 pg (27.0-32.0); MCHC 32.1 g/dL (32.0-37.0); MCV 91.9 fL (80.0-97.0); Mean Platelet Volume 9.6 fL (9.5-12.2); Monocytes # (A) 0.48 X 10*3/uL (0.20-1.00); Monocytes % (A) 9.1 %; Neutrophils # (A) 2.54 X 10*3/uL (1.80-7.70); Platelet Count 358 X 10*3/uL (140-440); RBC 4.55 X 10*6/uL (4.10-5.20); RDW 13.3 % (11.5-14.5); WBC 5.28 X 10*3/uL (4.50-10.00)
[2021-05-06 22:05] LABS: Albumin 4.6 g/dL (3.80-4.90); Albumin/Globulin Ratio 1.84 (1.60-3.17); Anion Gap 10.6 mmol/L (4.00-12.00); BUN/Creat Ratio 22.22 Ratio (12.00-20.00); Calcium 9.8 mg/dL (8.7-10.3); Carbon Dioxide 26.4 mmol/L (21.6-31.8); Chol/HDL Ratio 1.88; Globulin 2.5 g/dL (1.6-3.3); Non-African American GFR(CKD) 63.9 (60.0-200.0); Potassium 3.6 mmol/L (3.5-5.5); Total Bilirubin 0.5 mg/dL (0.2-1.2); Total Protein 7.1 g/dL (6.2-8.2)
== END | disposition home or self-care (01) ==
LOC: LABWHC1 12:01
PROVIDERS: ATTEND Family Medicine
DX: Z00.00 Encounter for general adult medical examination without abnormal findings (principal); E78.5 Hyperlipidemia, unspecified; I25.10 Atherosclerotic heart disease of native coronary artery without angina pectoris; H81.11 Benign paroxysmal vertigo, right ear
CPT/HCPCS: 36415; 80053; 80061; 84443; 85025

== ENCOUNTER → 2021-09-01 | Outpatient (CLI) | payer MEDICARE ==
--- NOTE | 2021-09-01 10:59 | XR ---
EXAMINATION TYPE: XR Hip Complete LT DATE OF EXAM: 09/01/2021 CLINICAL HISTORY: Left-sided pain. TECHNIQUE: AP and frogleg views of the left hip are obtained. COMPARISON: CT abdomen and pelvis October 26, 2018 FINDINGS: There is no acute fracture/dislocation evident in the left hip. Gynl-cg-lbdrlhao axial ramirez nt space loss left hip is redemonstrated. Femoral head shape is maintained. No suspicious focal osseo us lesion. The overlying soft tissue appears unremarkable. IMPRESSION: As above.
--- NOTE | 2021-09-01 11:01 | XR ---
EXAMINATION TYPE: XR lumbar spine 2 or 3V DATE OF EXAM: 09/01/2021 CLINICAL HISTORY: Low back pain into left leg. TECHNIQUE: Frontal and lateral images of the lumbar spine are obtained. COMPARISON: CT abdomen and pelvis October 26, 2018 FINDINGS: There are 5 lumbar type vertebral bodies redemonstrated. Slight levoconvex scoliotic curva ture centered at L3-L4 disc space redemonstrated. Vertebral body heights remain within normal limits. Moderate to severe disc space narrowing lumbosacral junction with endplate sclerosis redemonstrated . Whvk-zj-qheldlli multilevel disc space narrowing L2-L3 through the L4-L5 levels greatest at L3-L4 l evel again seen. Tkwq-mj-woetcugx multilevel anterior and lateral spurring redemonstrated. The overl eryn soft tissue appears unremarkable. IMPRESSION: As above. Findings similar to 2019 CT.
== END | disposition home or self-care (01) ==
LOC: RADXRWHC 09:57
PROVIDERS: ATTEND Family Medicine
DX: M25.852 Other specified joint disorders, left hip (principal); M41.86 Other forms of scoliosis, lumbar region; M51.37 Other intervertebral disc degeneration, lumbosacral region
CPT/HCPCS: 72100; 73502

== ENCOUNTER → 2021-09-12 | Outpatient (CLI) | payer MEDICARE ==
[2021-09-12 18:39] LABS: African American GFR (CKD) 70.4 (60.0-200.0); Albumin 4.4 g/dL (3.8-4.9); Albumin/Globulin Ratio 1.73 (1.60-3.17); Anion Gap 12.2 mmol/L (10.00-18.00); BUN/Creat Ratio 26.05 Ratio (12.00-20.00); Blood Urea Nitrogen 24.3 mg/dL (9.0-27.0); Calcium 9.8 mg/dL (8.7-10.3); Globulin 2.5 g/dL (1.6-3.3); Non-African American GFR(CKD) 60.7 (60.0-200.0); Potassium 3.6 mmol/L (3.5-5.5); Total Bilirubin 0.3 mg/dL (0.30-1.20); Total Protein 6.9 g/dL (6.2-8.2)
== END | disposition home or self-care (01) ==
LOC: LABWHC1 10:38
PROVIDERS: ATTEND Internal Medicine Endocrinology, Diabetes & Metabolism
DX: E55.9 Vitamin D deficiency, unspecified (principal); Z86.39 Personal history of other endocrine, nutritional and metabolic disease
CPT/HCPCS: 36415; 80053; 82306; 83970

== ENCOUNTER → 2021-12-16 | Outpatient (CLI) | payer MEDICARE ==
--- NOTE | 2021-12-17 08:06 | CT ---
EXAMINATION TYPE: CT angio chest DATE OF EXAM: 12/16/2021 COMPARISON: 04/04/2021 HISTORY: AAA w/o rupture CT DLP: 554.30 mGycm CONTRAST: CTA thoracic aorta with 3-D reconstruction is performed and without and with IV Contrast, patient inj ected with 80 mL of Isovue 370. Contrast CTA of the thoracic aorta was performed from the lung apex through the upper abdomen. 3D re construction imaging obtained at a separate workstation. CT Chest: THORACIC AORTA: Aortic root aneurysmal at 5.0 cm versus 5.0 cm, previously. Ascending aorta aneurysmal at 5.1 cm vers us 5.1 cm, previously. Proximal arch aneurysmal at 4.3 cm versus 4.3 cm, previously. Bovine configura tion to the aortic arch. Ectatic upper descending thoracic aorta 3.1 cm versus 3.0 cm, previously. LUNGS: The lungs are clear and free of infiltrate or atelectasis. No pulmonary nodule or mass is det ected. No pleural effusion or CT evidence of interstitial lung disease. MEDIASTINUM: No evidence for mediastinal hematoma. The heart is enlarged. No evidence for mediast inal mass or adenopathy. HILAR STRUCTURES: No evidence for mass. No hilar adenopathy is appreciated. OTHER: No significant abnormality. IMPRESSION- 1. Stable aneurysms of the aortic root, ascending thoracic aorta, proximal aortic arch. 2. Persistent cardiomegaly.
== END | disposition home or self-care (01) ==
LOC: RADCTMAIN 15:25
PROVIDERS: ATTEND Internal Medicine Interventional Cardiology
DX: I71.2 Thoracic aortic aneurysm, without rupture (principal); I51.7 Cardiomegaly
CPT/HCPCS: 82565; 84520; 71275; 36415; Q9967

== ENCOUNTER → 2022-01-21 | Outpatient (CLI) | payer MEDICARE ==
--- NOTE | 2022-01-21 21:36 | XR ---
EXAMINATION TYPE: XR chest 2V DATE OF EXAM: 01/21/2022 COMPARISON: 01/24/2018 HISTORY: Short of breath TECHNIQUE: FINDINGS: Heart is borderline enlarged. No heart failure. Lungs are clear of consolidation. Thoracic aorta is atheromatous. IMPRESSION: Borderline cardiomegaly. No heart failure. No adverse change. There is clearing of the pl eural reaction left lung base compared to old exam.
== END | disposition home or self-care (01) ==
LOC: RADXRMAIN 16:00
PROVIDERS: ATTEND Family Medicine
DX: I51.7 Cardiomegaly (principal); J94.8 Other specified pleural conditions
CPT/HCPCS: 71046

== ENCOUNTER → 2022-02-13 | Outpatient (CLI) | payer MEDICARE ==
--- NOTE | 2022-02-13 09:43 | US ---
EXAMINATION TYPE: US thyroid st tissue head/neck DATE OF EXAM: 02/13/2022 COMPARISON: NONE CLINICAL HISTORY: Z86.39 HYPERPARATHYROIDISM, R59.0 ENLG LYMPH NODE. MEASUREMENTS: GLAND SIZE: Right Lobe: 3.4 x 1.8 x 0.9cm Homogeneous Left Lobe: 2.7 x 0.8 x 0.8cm Homogeneous Isthmus Thickness: 0.3 NODULES RIGHT: # of nodules measured on right: 0 LEFT: # of nodules measured on left: 0 ISTHMUS: # of nodules measured within isthmus: 0 Bilateral neck scanned, no evidence of lymphadenopathy. IMPRESSION: 1. Normal thyroid ultrasound
== END | disposition home or self-care (01) ==
LOC: RADUSWWP 07:12
PROVIDERS: ATTEND Internal Medicine Endocrinology, Diabetes & Metabolism
DX: R59.0 Localized enlarged lymph nodes (principal); Z86.39 Personal history of other endocrine, nutritional and metabolic disease
CPT/HCPCS: 76536

== ENCOUNTER → 2022-02-13 | Outpatient (CLI) | payer MEDICARE ==
[2022-02-13 15:21] LABS: African American GFR (CKD) 64.7 (60.0-200.0); Albumin 4.5 g/dL (3.8-4.9); Albumin/Globulin Ratio 1.88 (1.60-3.17); Anion Gap 10.4 mmol/L (10.00-18.00); BUN/Creat Ratio 20.9 Ratio (12.00-20.00); Blood Urea Nitrogen 20.9 mg/dL (9.0-27.0); Calcium 9.5 mg/dL (8.7-10.3); Carbon Dioxide 25.6 mmol/L (20.0-27.5); Globulin 2.4 g/dL (1.6-3.3); Non-African American GFR(CKD) 55.8 (60.0-200.0); Total Bilirubin 0.3 mg/dL (0.30-1.20); Total Protein 6.9 g/dL (6.2-8.2)
== END | disposition home or self-care (01) ==
LOC: LABWHC1 07:41
PROVIDERS: ATTEND Internal Medicine Endocrinology, Diabetes & Metabolism
DX: E55.9 Vitamin D deficiency, unspecified (principal); Z86.39 Personal history of other endocrine, nutritional and metabolic disease
CPT/HCPCS: 36415; 80053; 82306; 83970; 84443

== ENCOUNTER → 2022-04-21 | Outpatient (CLI) | payer MEDICARE ==
--- NOTE | 2022-05-01 09:23 | MM ---
Reason for Exam: Screening (asymptomatic). Last mammogram was performed 1 year(s) and 1 month(s) ago. Patient History: Menarche at age 11. First Full-Term at age 18. Hysterectomy at age 55. Postmenopausal. Other cancer. Estrogen for 7 years from age 50 until age 57. Patient used Progesterone for 6 years. Benign Cyst Aspiration on the right side. 12/31/2016, Benign Core Biopsy on the left side. 12/31/2016, Benign Core Biopsy on the right side. 05/11/2008, Benign Core Biopsy on the left side. Sister had breast cancer, age 63. Risk Values: Raegan 5 year model risk: 5.0%. NCI Lifetime model risk: 12.0%. Prior Study Comparison: 01/10/2019 Bilateral Screening Mammogram, [facility]. 03/21/2020 Bilateral Screening Mammogram, [facility]. 04/11/2021 Bilateral Screening Mammogram, [facility]. Tissue Density: The breast tissue is heterogeneously dense. This may lower the sensitivity of mammography. Findings: Analyzed By CAD. There is no suspicious group of microcalcifications or new suspicious mass in either breast. Overall Assessment: Benign, BI-RAD 2 Management: Screening Mammogram of both breasts in 1 year. A clinical breast exam by your physician is recommended on an annual basis and results should be correlated with mammographic findings. Electronically signed and approved by: Byron Perera M.D. Radiologis
== END | disposition home or self-care (01) ==
LOC: RADMAMWWP 21:59
PROVIDERS: ATTEND Family Medicine
DX: Z12.31 Encounter for screening mammogram for malignant neoplasm of breast (principal); Z78.0 Asymptomatic menopausal state; Z80.3 Family history of malignant neoplasm of breast
CPT/HCPCS: 77063; 77067

== ENCOUNTER → 2022-04-21 | Outpatient (CLI) | payer MEDICARE ==
--- NOTE | 2022-04-23 18:14 | MR ---
EXAMINATION TYPE: MR lumbar spine wo con DATE OF EXAM: 04/22/2022 COMPARISON: None HISTORY: Myelopathy, spondylosis CONTRAST: 0 mL intravenous . TECHNIQUE: Multiplanar, multisequence images of the lumbar spine were acquired. FINDINGS: Cord terminates at the L1 level. Tarlov cysts are present posterior to the S1 and S2 levels. L5-S1: Broad-based disc bulge is present with minimal anterior thecal sac contact. No displacement of the exiting nerve roots is evident. Facet hypertrophy is present. Mild bilateral foraminal narrowing is present. L4-L5: Broad-based disc bulge has mild intrathecal sac flattening. No AP spinal canal stenosis is pre sent. Facet hypertrophy and ligamentum flavum laxity is present with posterior-lateral thecal sac imp ression. Mild bilateral foraminal narrowing is present. L3-L4: Facet hypertrophy with ligamentum flavum laxity is present more notably on the right. This has posterior lateral thecal sac compression. Mild disc bulges anterior thecal sac contact. No AP spinal canal stenosis is present. Right neural foramen has moderate narrowing. Left neural foramen is paten t. L2-L3: No significant disc bulge or disc herniation. No spinal canal stenosis. No foraminal stenosi s. Mild facet hypertrophy is present. Minimal posterior lateral thecal sac compression is present L1-L2: No significant disc bulge or disc herniation. No spinal canal stenosis. No foraminal stenosi s. Neural foramen are patent.. T12-L1: No significant disc bulge or disc herniation. No spinal canal stenosis. No foraminal stenos is. Synovial cyst may be within the left foramen. IMPRESSION: 1. Disc bulging L5-S1 without stenosis. 2. Disc bulging with mild ventral thecal sac compression at L4-5. Some canal narrowing with posterior lateral thecal sac compression from facet hypertrophy and ligamentum flavum laxity is noted at this level. 3. L3-4 Broad-based disc bulge with mild anterior thecal sac flattening. Right facet hypertrophy and ligamentum flavum laxity is posterior-lateral thecal sac compression with moderate right foraminal st enosis. 4. 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
== END | disposition home or self-care (01) ==
LOC: RADMRIMAIN 12:45
PROVIDERS: ATTEND Physical Medicine & Rehabilitation
DX: M47.16 Other spondylosis with myelopathy, lumbar region (principal); M51.06 Intervertebral disc disorders with myelopathy, lumbar region; M48.061 Spinal stenosis, lumbar region without neurogenic claudication; M99.74 Connective tissue and disc stenosis of intervertebral foramina of sacral region
CPT/HCPCS: 72148

== ENCOUNTER → 2022-04-21 | Outpatient (CLI) | payer MEDICARE ==
[2022-04-22 15:42] LABS: ALT 16 U/L (8-44); AST 17 U/L (13-35); Albumin 4.4 g/dL (3.8-4.9); Albumin/Globulin Ratio 2.02 (1.60-3.17); Alkaline Phosphatase 48 U/L (41-126); BUN/Creat Ratio 21.19 Ratio (12.00-20.00); Calcium 9.9 mg/dL (8.7-10.3); Carbon Dioxide 26.4 mmol/L (20.0-27.5); Chloride 103 mmol/L (96-109); Globulin 2.2 g/dL (1.6-3.3); Glucose 116 mg/dL (70-110); Non-African American GFR(CKD) 45.7 (60.0-200.0); Potassium 3.6 mmol/L (3.5-5.5); Sodium 139 mmol/L (135-145); Total Bilirubin <0.15 mg/dL (0.30-1.20); Total Protein 6.6 g/dL (6.2-8.2)
== END | disposition home or self-care (01) ==
LOC: LABWHC1 21:15
PROVIDERS: ATTEND Internal Medicine Endocrinology, Diabetes & Metabolism
DX: E55.9 Vitamin D deficiency, unspecified (principal); Z86.39 Personal history of other endocrine, nutritional and metabolic disease
CPT/HCPCS: 36415; 80053; 82306; 83970; 84443

== ENCOUNTER → 2022-06-08 | Outpatient (CLI) | payer MEDICARE ==
[2022-06-08 15:30] LABS: African American GFR (CKD) 64.7 (60.0-200.0); Albumin 4.5 g/dL (3.8-4.9); Albumin/Globulin Ratio 1.55 (1.60-3.17); Anion Gap 10.7 mmol/L (10.00-18.00); BUN/Creat Ratio 22.1 Ratio (12.00-20.00); Blood Urea Nitrogen 22.1 mg/dL (9.0-27.0); Calcium 9.6 mg/dL (8.7-10.3); Carbon Dioxide 25.3 mmol/L (20.0-27.5); Globulin 2.9 g/dL (1.6-3.3); Non-African American GFR(CKD) 55.8 (60.0-200.0); Potassium 3.9 mmol/L (3.5-5.5); Total Bilirubin 0.5 mg/dL (0.30-1.20); Total Protein 7.4 g/dL (6.2-8.2)
== END | disposition home or self-care (01) ==
LOC: LABWHC1 08:46
PROVIDERS: ATTEND Internal Medicine Endocrinology, Diabetes & Metabolism
DX: E55.9 Vitamin D deficiency, unspecified (principal); Z86.39 Personal history of other endocrine, nutritional and metabolic disease
CPT/HCPCS: 36415; 80053; 82306; 83970; 84443

== ENCOUNTER → 2022-08-20 | Outpatient (CLI) | payer MEDICARE ==
--- NOTE | 2022-08-20 10:52 | US ---
EXAMINATION TYPE: US thyroid st tissue head/neck DATE OF EXAM: 08/20/2022 COMPARISON: 02/13/2022 CLINICAL HISTORY: 72-year-old female Hyperparathyroidism. TECHNIQUE: Multiple sonographic images of the thyroid gland are obtained. FINDINGS: GLAND SIZE: Right Lobe: 2.9 x 1.1 x 1.1 cm Overall Parenchyma: homogenous Left Lobe: 2.7 x 1.2 x 0.80 cm Overall Parenchyma: homogeneous Isthmus Thickness: 0.27 cm NODULES RIGHT: # of nodules measured on right: 0 LEFT: # of nodules measured on left: 0 ISTHMUS: # of nodules measured in the isthmus: 0 Bilateral neck scanned, no evidence of lymphadenopathy. IMPRESSION: Normal to slightly small size to the thyroid gland. No discrete nodules.
== END | disposition home or self-care (01) ==
LOC: RADUSWWP 08:26
PROVIDERS: ATTEND Internal Medicine Endocrinology, Diabetes & Metabolism
DX: E21.3 Hyperparathyroidism, unspecified (principal); R59.0 Localized enlarged lymph nodes; Z86.39 Personal history of other endocrine, nutritional and metabolic disease
CPT/HCPCS: 76536

== ENCOUNTER → 2022-12-07 | Outpatient (CLI) | payer MEDICARE ==
[2022-12-07 16:21] LABS: African American GFR (CKD) 59.9 (60.0-200.0); Albumin 4.5 g/dL (3.8-4.9); Anion Gap 11.1 mmol/L (10.00-18.00); BUN/Creat Ratio 19.34 Ratio (12.00-20.00); Blood Urea Nitrogen 20.5 mg/dL (9.0-27.0); Calcium 10.3 mg/dL (8.7-10.3); Carbon Dioxide 28.7 mmol/L (20.0-27.5); Globulin 2.2 g/dL (1.6-3.3); Non-African American GFR(CKD) 51.7 (60.0-200.0); Potassium 3.9 mmol/L (3.5-5.5); Total Bilirubin 0.3 mg/dL (0.30-1.20); Total Protein 6.7 g/dL (6.2-8.2)
== END | disposition home or self-care (01) ==
LOC: LABWHC1 10:30
PROVIDERS: ATTEND Internal Medicine Endocrinology, Diabetes & Metabolism
DX: E55.9 Vitamin D deficiency, unspecified (principal); Z86.39 Personal history of other endocrine, nutritional and metabolic disease
CPT/HCPCS: 36415; 80053; 82306; 83970; 84443

== ENCOUNTER → 2023-04-12 | Outpatient (CLI) | payer MEDICARE ==
[2023-04-12 15:43] LABS: HCT 42.3 % (37.2-46.3); HGB 13.8 d/dL (12.0-15.0); MCH 30.1 pg (27.0-32.0); MCHC 32.6 d/dL (32.0-37.0); MCV 92.2 FL (80.0-97.0); Mean Platelet Volume 9.9 FL (9.5-12.2); NRBC Per 100 WBC 0 X 10*3/uL (0.00-0.01); Platelet Count 313 X 10*3/uL (140-440); RBC 4.59 X 10*6/uL (4.10-5.20); RDW 14.3 % (11.5-14.5)
[2023-04-12 16:16] LABS: % Iron Saturation 14.01 (12.00-45.00); ALT 16 U/L (8-44); AST 20 U/L (13-35); Albumin 4.6 d/dL (3.8-4.9); Alkaline Phosphatase 40 U/L (41-126); Blood Urea Nitrogen 23.8 mg/dL (9.0-27.0); Carbon Dioxide 26.2 mmol/L (21.6-31.8); Chloride 103 mmol/L (96-109); Globulin 2.3 d/dL (1.6-3.3); Glucose 97 mg/dL (70-110); Iron 79 UG/DL (50-170); Magnesium 2.1 mg/dL (1.5-2.4); Phosphorus 3.7 mg/dL (2.4-5.1); Potassium 3.9 mmol/L (3.5-5.5); Sodium 143 mmol/L (135-145); Total Bilirubin 0.3 mg/dL (0.3-1.2); Total Iron Binding Capacity 564 UG/DL (228-460); Total Protein 6.9 d/dL (6.2-8.2); Uric Acid 3.9 mg/dL (2.9-7.7)
[2023-04-12 16:33] LABS: Appearance,Urine Clear (Clear); Bilirubin,Urine Negative (Negative); Blood,Urine Negative (Negative); Color,Urine Yellow (Yellow); Ketones,Urine Trace (Negative); Nitrite,Urine Negative (Negative); PH, Urine 5.5; Specific Gravity,Urine 1.024 (1.001-1.030)
[2023-04-12 16:52] LABS: Bacteria,Urine Trace; Calcium Oxalate Crystals,Urine Present (None Seen)
== END | disposition home or self-care (01) ==
LOC: LABWHC1 11:36
PROVIDERS: ATTEND Internal Medicine
DX: I71.9 Aortic aneurysm of unspecified site, without rupture (principal); E55.9 Vitamin D deficiency, unspecified; D64.9 Anemia, unspecified; N25.81 Secondary hyperparathyroidism of renal origin; M10.9 Gout, unspecified
CPT/HCPCS: 36415; 80053; 81001; 82043; 82306; 82570; 82728; 83540; 83550; 83735; 83970; 84100; 84550; 85027

== ENCOUNTER → 2023-08-31 | Outpatient (CLI) | payer MEDICARE ==
[2023-08-31 15:23] LABS: ALT 14 U/L (8-44); AST 16 U/L (13-35); Albumin 4.5 g/dL (3.8-4.9); Alkaline Phosphatase 45 U/L (41-126); BUN/Creat Ratio 21.89 Ratio (12.00-20.00); Blood Urea Nitrogen 19.7 mg/dL (9.0-27.0); Calcium 10.2 mg/dL (8.7-10.3); Carbon Dioxide 24.9 mmol/L (21.6-31.8); Chloride 103 mmol/L (96-109); Globulin 2.5 g/dL (1.6-3.3); Glucose 103 mg/dL (70-110); Potassium 3.7 mmol/L (3.5-5.5); Sodium 140 mmol/L (135-145); Total Bilirubin 0.4 mg/dL (0.3-1.2)
== END | disposition home or self-care (01) ==
LOC: LABWHC1 09:44
PROVIDERS: ATTEND Internal Medicine Endocrinology, Diabetes & Metabolism
DX: Z86.39 Personal history of other endocrine, nutritional and metabolic disease (principal)
CPT/HCPCS: 36415; 80053; 82306; 83970

== ENCOUNTER 2023-09-07 09:57 | Day surgery (SDC) | payer MEDICARE ==
[2023-09-03 09:42] VITALS: BMI 26.6
[~2023-09-07 09:57] MED LIST changes: -SODIUM CHLORIDE 0.9% 1,000 ML in EMPTY BAG 1 BAG IV ONE; +SODIUM CHLORIDE 0.9% 1,000 ML in EMPTY BAG 1 BAG IV SCH
[2023-09-07] MEDS ORDERED: SODIUM CHLORIDE 0.9% 1,000 ML IV ONE (10:08)
[2023-09-07 10:38] LABS: Basophils # (A) 0.1 k/uL (0-0.2); Basophils % (A) 1 %; Eosinophils # (A) 0.2 k/uL (0-0.7); Eosinophils % (A) 4 %; HCT 42.1 % (34.0-46.0); Lymphocytes % (A) 38 %; MCH 30.1 pg (25.0-35.0); MCHC 33.2 g/dL (31.0-37.0); MCV 90.7 fL (80.0-100.0); Mean Platelet Volume 8.3; Monocytes # (A) 0.4 k/uL (0-1.0); Monocytes % (A) 7 %; Neutrophils # (A) 2.4 k/uL (1.3-7.7); Neutrophils % (A) 46 %; Platelet Count 290 k/uL (150-450); RBC 4.64 m/uL (3.80-5.40); RDW 13.7 % (11.5-15.5); WBC 5.2 k/uL (3.8-10.6)
[2023-09-07 10:45] LABS: African American GFR (CKD) 84 (>60 ml/min/1.73 sqM); Blood Urea Nitrogen 24 mg/dL (7-17); Calcium 9.8 mg/dL (8.4-10.2); Carbon Dioxide 30 mmol/L (22-30); Glucose 90 mg/dL (74-99); Non-African American GFR(CKD) 73 (>60 ml/min/1.73 sqM); Potassium 3.7 mmol/L (3.5-5.1); Sodium 141 mmol/L (137-145)
[2023-09-07 11:02] LABS: Anion Gap 6 mmol/L; Chloride 105 mmol/L (98-107)
[2023-09-07] MEDS ORDERED: VERAPAMIL 2.5 MG/ML 2 ML AMP ONE (11:47)
[2023-09-07] MEDS ORDERED: HEPARIN SODIUM 1,000 UN/ML (10ML VL) ONE (11:47)
[2023-09-07] MEDS ORDERED: fentaNYL (PF) 50 MCG/ML 2 ML AMP ONE (11:47)
[2023-09-07] MEDS ORDERED: LIDOCAINE 1% INJ 10MG/ML (20 ML MDV) ONE (11:47)
[2023-09-07] MEDS ORDERED: BENZOCAINE SPRAY 1 CAN TOPICAL ONE (11:55)
[2023-09-07] MEDS ORDERED: MIDAZOLAM 2 MG/2 ML VIAL IVP ONE ×2 (12:00→12:03)
[2023-09-07] MEDS ORDERED: fentaNYL (PF) 50 MCG/ML 2 ML AMP IVP ONE ×2 (12:00)
[2023-09-07] MEDS ORDERED: IV FLUID CONTINUATION 1,000 ML IV ONE (12:00)
[2023-09-07] MEDS ORDERED: LIDOCAINE 1% INJ 10MG/ML (30 ML VIAL-PF) SQ ONE (12:42)
[2023-09-07] MEDS ORDERED: HEPARIN SODIUM 1,000 UN/ML (10ML VL) IV ONE (12:44)
[2023-09-07] MEDS ORDERED: VERAPAMIL SYRINGE (5 MG/10 ML) INTRAARTER ONE (12:48)
[2023-09-07] MEDS ORDERED: NITROGLYCERIN SL TABS 0.4 MG TAB SUBLINGUAL ONE ×2 (12:50→12:51)
[2023-09-07] MEDS ORDERED: IOPAMIDOL-370 100ML BTL INJ ONE ×2 (13:15→13:39)
[2023-09-07] MEDS ORDERED: RX INFO: IV CONTRAST WAS GIVEN 1 EACH MISC MISCELLANE PRN (15:51)
[2023-09-07] MEDS ORDERED: ACETAMINOPHEN TAB 325 MG TAB PO STA (15:59)
[2023-09-07] MEDS ORDERED: SODIUM CHLORIDE 0.9% 1,000 ML IV SCH (16:00)
[2023-09-07 16:18] VITALS: RESP 16; TEMP 98.5
--- NOTE | 2023-09-07 18:04 | P.PCN ---
Date of Procedure: 09/07/23 Operative Findings: TRANSESOPHAGEAL ECHOCARDIOGRAM PUMP REBUILDER: CRYSTAL VIERA MD, RPVI INDICATION: Aortic insufficiency SEDATION: Conscious sedation COMPLICATION: None LEVEL OF SEDATION Moderate to sedation length of 16 minutes PROCEDURE DESCRIPTION: After obtaining an informed consent, the patient was brought to transesophageal echocardiogram room. Pulse oximetry and heart monitors were attached to the patient. The patient throat was sprayed using lidocaine. The patient was turned into left lateral position. After that a bite guard was placed. After an appropriate conscious sedation was initiated, the transesophageal echocardiogram was advanced through a bite guard into the mid esophagus. A 2-D echocardiogram images, color Doppler images, continuous wave images, pulse-wave images, of various cardiac structure were performed. After that the transesophageal echocardiogram probe was advanced into the stomach and fixed to obtain transgastric view was. The probe was brought into the mid esophagus. Inter-atrial septum was interrogated using 2D images, color Doppler images, and then contrast study. After that transesophageal echocardiogram was withdrawn out and upon withdrawing the descending thoracic aorta all the way up to the arch was evaluated. CONCLUSION: 1. Trileaflet aortic valve with moderate to severe aortic insufficiency and evidence of reversal flow in the descending aorta 2. Normal mitral valve leaflets with mild MR 3. Poorly visualized tricuspid valve and pulmonic valve 4. Normal LV systolic function 5. Dilated aortic root and ascending aorta
--- NOTE | 2023-09-07 18:11 | P.PCN ---
Date of Procedure: 09/07/23 Operative Findings: CARDIAC CATHETERIZATION PERFORMING PHYSICIAN: Sancho López MD, RPVI PROCEDURE PERFORMED: 1. Selective right and left coronary angiogram 2. Left heart catheterization and right heart catheterization 3. Ultrasound-guided access of the right radial artery and right common femoral artery and right common femoral vein 4. An aortic root angiogram INDICATION: Shortness of breath and valvular heart disease COMPLICATION: None APPROACH: Right radial artery LEVEL OF SEDATION: Moderate with a sedation length of 60 minutes PROCEDURE DESCRIPTION: After obtaining an informed consent, the patient was brought to cardiac medical lab scientist. Local anesthesia was performed using lidocaine subcutaneously. The right radial artery was cannulated using Seldinger technique, the guidewire passed easily, following that we advanced a 5-[place]ican sheath dilator assembly, the wire and dilator were removed and sheath was flushed. After that I accessed the right common femoral vein using micropuncture technique under ultrasound guidance the micropuncture wire passed easily then in place a 7-[place] sheath at the right common femoral vein. Following that, 2 mg of verapamil intra-arterial in the right radial sheath along with 5000 unit heparin were given. Attempting engaging the right and left coronary system from right radial approach was extremely difficult because of the extreme right subclavian tortuosity and spasm and pain. Because of that we decided to go from the right common femoral artery. The right common femoral artery was cannulated using a commercial technique under ultrasound guidance the micro-rupture wire passed easily then I placed initially 11 cm 6-[place] sheath but subsequently because of also extremely tortuous right iliac I exchanged my sheath into 23 cm bright tip sheath. Engaging the right coronary artery was performed using an AL-1 catheter. Attempting getting selective injection of the left carotid system was extremely difficult using JL4, JL 4.5, JL 5, and AL-1, EBU 3.75, and CLS 3.5 catheters. After that I did left heart catheterization using a pigtail catheter then I did an aortic root angiogram using the pigtail catheter. Please note that the right heart catheterization was performed at the beginning using a 7- [place] catheter. The procedure was completed was no complication The procedure was completed there was no complication. SELECTIVE CORONARY ANGIOGRAM: The right coronary artery: Large-caliber vessel and a dominant vessel was mild disease only Left main: Overall was not selectively opacified but appeared to be normal The left circumflex: Was not selectively opacified but appears to have mild disease on The left anterior descending artery: Also was not selectively opacified HEMODYNAMICS: The pulmonary capillary wedge pressure was 8 mmHg PA pressures were as follow systolic 26 and diastolic 7 and mean of 14 mmHg RV pressures were as follow systolic 23 and end-diastolic of 17 mmHg RA pressure was 3 mmHg The LV EDP was 18 mmHg AORTIC ROOT ANGIOGRAM: The aortic root angiogram was performed in the [place] projection and using a power injection. The aortic root and ascending aorta aren't dilated was evidence of at least 3+ aortic insufficiency. CONCLUSION: 1. Normal left and right sided filling pressure was no evidence of pulmonary hypertension 2 Dilated aortic root and ascending aorta was evidence of at least 3+ aortic insufficiency 3. Normal right coronary artery and the left coronary system was not well opacified] POSTPROCEDURE MANAGEMENT: Procedure referring the patient to undergo an aortic valve replacement along with aortic root replacement as well
[2023-09-07 18:58] VITALS: BP 124/81; PULSE 62
== END 2023-09-07 20:00 | disposition home or self-care (01) ==
LOC: CATHCVL 09:57 → 6NMEDSUR 13:41 → CATHCVL 20:00
PROVIDERS: ATTEND Internal Medicine Interventional Cardiology
DX: I35.1 Nonrheumatic aortic (valve) insufficiency (principal); Z95.2 Presence of prosthetic heart valve; Z79.899 Other long term (current) drug therapy; Z79.82 Long term (current) use of aspirin
CPT/HCPCS: 93312; 93320; 93325; 80048; 85025; 99152; C1760; C1769 ×4; C1887 ×2; C1894 ×3; C1751; J2250; J2001; J3010; J1644; Q9967; 76937; 93460; 93567

== ENCOUNTER 2023-11-14 19:32 | Emergency (ER) | payer MEDICARE ==
--- NOTE | 2023-11-14 19:45 | ED ---
General Adult HPI - General Chief complaint: Abdominal Pain Stated complaint: abd pain NV Time Seen by Provider: 11/14/23 19:37 Source: patient Mode of arrival: ambulatory Limitations: no limitations - History of Present Illness Initial comments: Patient presents to the ED with her for evaluation. Patient states that she has had a left lower quadrant abdominal pain radiating to her left flank/back since this morning. Patient states that her pain has been constant since this morning. Patient admits to having nausea and 1 bout of emesis today. Patient denies known trauma or injury, fever or chills, headache, focal neuro deficit, chest pain or pressure, dyspnea, palpitations, dizziness, upper abdominal pain, diarrhea or constipation, bloody or melanotic stool, hematemesis, dysuria/hematuria/urinary frequency/urinary symptoms, or any other symptoms or complaints. Patient states that she has taken multiple doses of Tylenol today with only minimal relief. - Related Data Home Medications Medication Instructions Recorded Confirmed Albuterol Sulfate [Proair Hfa] 1 - 2 puff INHALATION RT-Q6H PRN 11/23/16 09/03/23 Aspirin 81 mg PO DAILY 11/23/16 09/07/23 Fluticasone Propion/Salmeterol 2 puff INHALATION BID 11/23/16 09/03/23 [Advair Hfa 115-21 Mcg Inhaler] Montelukast [Singulair] 10 mg PO HS 11/23/16 09/03/23 Ascorbic Acid [Vitamin C] 1,000 mg PO DAILY 06/03/20 09/03/23 L.acidoph,Paracasei, B.lactis 1 each PO DAILY 06/03/20 09/03/23 [Probiotic] Metoprolol Succinate [Toprol XL] 25 mg PO QAM 06/03/20 09/07/23 Allergy Shot 1 dose IM DIRECTED 09/03/23 09/03/23 Calcium Carbonate [Calcium] 600 mg PO DAILY 09/03/23 09/03/23 Fenofibrate Nanocrystallized 145 mg PO HS 09/03/23 09/03/23 [Fenofibrate] Losartan [Cozaar] 12.5 mg PO 1200 09/03/23 09/03/23 amLODIPine [Norvasc] 10 mg PO HS 09/07/23 09/07/23 Allergies Allergy/AdvReac Type Severity Reaction Status Date / Time amoxicillin [From Augmentin] Allergy Nausea & Verified 11/14/23 19:36 Vomiting & Diarrhea ciprofloxacin [From Cipro] Allergy Nausea & Verified 11/14/23 19:36 Vomiting clavulanic acid Allergy Nausea & Verified 11/14/23 19:36 [From Augmentin] Vomiting & Diarrhea mold Allergy Cough Verified 11/14/23 19:36 Review of Systems ROS Statement: Those systems with pertinent positive or pertinent negative responses have been documented in the HPI. ROS Other: All systems not noted in ROS Statement are negative. Past Medical History Past Medical History: Asthma, Eye Disorder, GERD/Reflux, Hyperlipidemia, Hypertension, Thyroid Disorder Additional Past Medical History / Comment(s): Aneurysm. Hx migraines, palpitations, hx hiatal hernia. Peripheral double vision. Varicose veins. Vertigo. History of Any Multi-Drug Resistant Organisms: None Reported Past Surgical History: Appendectomy, Bladder Surgery, Bowel Resection, Breast Surgery, Heart Catheterization, Hernia Repair, Hysterectomy Additional Past Surgical History / Comment(s): PARATHYROID TUMOR REMOVED, RECTOCELE REPAIR/BLADDER SUSPENSION with hysterectomy, HIATAL HERNIA REPAIR, COLONOSCOPY, EGD, bilateral breast biopsies, RK surgery bilateral eyes, 2nd surgery for prolapse bladder, surgery to repair rectal tear X2, bilateral cataracts removed, bilateral eyelid surgery, heart ultrasound. Past Anesthesia/Blood Transfusion Reactions: Motion Sickness, Postoperative Nausea & Vomiting (PONV) Additional Past Anesthesia/Blood Transfusion Reaction / Comment(s): PONV W/ ETHER YEARS AGO. Vertigo. Past Psychological History: No Psychological Hx Reported Smoking Status: Never smoker Past Alcohol Use History: None Reported Past Drug Use History: None Reported - Past Family History Sister(s) Family Medical History: Cancer Additional Family Medical History / Comment(s): Breast, spread to lungs, liver and bone. General Exam Limitations: no limitations General appearance: alert Eye exam: Present: normal appearance ENT exam: Present: mucous membranes moist Respiratory exam: Present: normal lung sounds bilaterally. Absent: respiratory distress, wheezes, rales, rhonchi, stridor Cardiovascular Exam: Present: regular rate, normal rhythm, normal heart sounds, other (Normal radial pulses bilaterally) GI/Abdominal exam: Present: soft, normal bowel sounds. Absent: distended, tenderness, guarding Back exam: Absent: tenderness, CVA tenderness (R), CVA tenderness (L) Neurological exam: Present: alert, oriented X3. Absent: motor sensory deficit Skin exam: Present: warm, dry, normal color Course Vital Signs 11/14/23 11/14/23 11/14/23 19:34 20:36 21:00 Temperature 97.6 F Pulse Rate 64 67 71 Respiratory 18 18 18 Rate Blood Pressure 160/80 137/76 122/63 O2 Sat by Pulse 98 94 L 95 Oximetry - Reevaluation(s) Reevaluation #1: 11/15/23 00:06 Patient reports improvement in her pain and nausea with ED treatment. Patient continues to have a soft and nontender abdominal exam. Patient and are aware of the patient's test results, and patient feels comfortable being discharged home with her at this time. She was counseled about ur eterolithiasis, and she was clearly explained return and follow-up instructions. She was instructed to follow-up closely with a urologist, and she states that she has a urologist that she currently sees in [place]. Medical Decision Making - Medical Decision Making Was pt. sent in by a medical professional or institution (, PA, [employer], urgent care, hospital, or fci...) When possible be specific @ -No Did you speak to anyone other than the patient for history (EMS, parent, family, police, friend...)? What history was obtained from this source @ -No Did you review nursing and triage notes (agree or disagree)? Why? @ -I reviewed and agree with nursing and triage notes Were old charts reviewed (outside hosp., previous admission, EMS record, old EKG, old radiological studies, urgent care reports/EKG's, fci records)? Report findings @ -No old charts were reviewed Differential Diagnosis (chest pain, altered mental status, abdominal pain women, abdominal pain men, vaginal bleeding, weakness, fever, dyspnea, syncope, headache, dizziness, GI bleed, back pain, seizure, CVA, palpatations, mental health, musculoskeletal)? @ -Differential Abdominal Pain Women: Diverticulitis, colitis, enteritis, pyelonephritis, UTI, gastroenteritis, AAA, incarcerated hernia, bowel obstruction, constipation, inflammatory bowel, perf orated viscus, kidney stone, this is not meant to be an all-inclusive list EKG interpreted by me (3pts min.). @ -None done X-rays interpreted by me (1pt min.). @ -None done CT interpreted by me (1pt min.). @ -Noncontrast CT abdomen/pelvis was reviewed myself and shows a 4 mm distal left obstructing ureteral stone. I agree with the radiologist's interpretation as above. U/S interpreted by me (1pt. min.). @ -None done What testing was considered but not performed or refused? (CT, X-rays, U/S, labs)? Why? @ -None What meds were considered but not given or refused? Why? @ -None Did you discuss the management of the patient with other professionals (professionals i.e. DrPhillip, PA, [employer], lab, RT, psych nurse, outreach and education social worker, line assembly utility worker, teacher, evp and chief operating officer, case operator)? Give summary @ -No Was smoking cessation discussed for >3mins.? @ -No Was critical care preformed (if so, how long)? @ -No Were there social determinants of health that impacted care today? How? (Homelessness, low income, unemployed, alcoholism, drug addiction, transportation, low edu. Level, literacy, decrease access to med. care, halfway, rehab)? @ -No Was there de-escalation of care discussed even if they declined (Discuss DNR or withdrawal of care, Hospice)? DNR status @ -No What co-morbidities impacted this encounter? (DM, HTN, Smoking, COPD, CAD, Cancer, CVA, ARF, Chemo, Hep., AIDS, mental health diagnosis, sleep apnea, morbid obesity)? @ -None Was patient admitted / discharged? Hospital course, mention meds given and route, prescriptions, significant lab abnormalities, going to OR and other pertinent info. @ -Patient reports improvement in her symptoms with ED management. Patient is afebrile. Patient has a soft and nontender abdominal exam. I suspect that the patient's symptoms are likely due to her obstructing left ureteral stone. Patient was counseled about ureterolithiasis, and she was clearly explained return and follow-up instructions. Patient states that she plans on following up with her urologist in [place], [place]. Will discharge patient home at this time with Tylenol #3 and Zofran starter packs. Patient feels comfortable with this plan. Undiagnosed new problem with uncertain prognosis? @ -No Drug Therapy requiring intensive monitoring for toxicity (Heparin, Nitro, Insuli n, Cardizem)? @ -No Were any procedures done? @ -No Diagnosis/symptom? @ -Left ureterolithiasis Acute, or Chronic, or Acute on Chronic? @ -Acute Uncomplicated (without systemic symptoms) or Complicated (systemic symptoms)? @ -Default Side effects of treatment? @ -No Exacerbation, Progression, or Severe Exacerbation? @ -No Poses a threat to life or bodily function? How? (Chest pain, USA, NM, pneumonia, PE, COPD, DKA, ARF, appy, cholecystitis, CVA, Diverticulitis, Homicidal, Suicidal, threat to staff... and all critical care pts) @ -No - Lab Data Result diagrams: 11/14/23 19:54 11/14/23 19:54 Lab Results 11/14/23 11/14/23 11/14/23 Range/Units 19:54 19:54 19:54 WBC 6.0 (3.8-10.6) k/uL RBC 4.47 (3.80-5.40) m/uL Hgb 13.6 (11.4-16.0) gm/dL Hct 40.9 (34.0-46.0) % MCV 91.6 (80.0-100.0) fL MCH 30.4 (25.0-35.0) pg MCHC 33.2 (31.0-37.0) g/dL RDW 14.2 (11.5-15.5) % Plt Count 237 (150-450) k/uL MPV 8.1 Neutrophils % 68 % Lymphocytes % 20 % Monocytes % 6 % Eosinophils % 2 % Basophils % 1 % Neutrophils # 4.0 (1.3-7.7) k/uL Lymphocytes # 1.2 (1.0-4.8) k/uL Monocytes # 0.4 (0-1.0) k/uL Eosinophils # 0.1 (0-0.7) k/uL Basophils # 0.1 (0-0.2) k/uL Sodium 135 L (137-145) mmol/L Potassium 3.6 (3.5-5.1) mmol/L Chloride 102 (98-107) mmol/L Carbon Dioxide 25 (22-30) mmol/L Anion Gap 8 mmol/L BUN 28 H (7-17) mg/dL Creatinine 1.02 (0.52-1.04) mg/dL Est GFR (CKD-EPI)AfAm 63 (>60 ml/min/1.73 sqM) Est GFR (CKD-EPI)NonAf 54 (>60 ml/min/1.73 sqM) Glucose 123 H (74-99) mg/dL Plasma Lactic Acid Rene 0.9 (0.7-2.0) mmol/L Calcium 9.4 (8.4-10.2) mg/dL Total Bilirubin 0.7 (0.2-1.3) mg/dL AST 25 (14-36) U/L ALT 17 (4-34) U/L Alkaline Phosphatase 48 (38-126) U/L Total Protein 7.0 (6.3-8.2) g/dL Albumin 4.3 (3.5-5.0) g/dL Lipase 166 (23-300) U/L Urine Color Urine Appearance (Clear) Urine pH (5.0-8.0) Ur Specific [place] (1.001-1.035) Urine Protein (Negative) Urine Glucose (UA) (Negative) Urine Ketones (Negative) Urine Blood (Negative) Urine Nitrite (Negative) Urine Bilirubin (Negative) Urine Urobilinogen (<2.0) mg/dL Ur Leukocyte Esterase (Negative) Urine RBC (0-5) /hpf Urine WBC (0-5) /hpf Ur Squamous Epith Cells (0-4) /hpf Urine Bacteria (None) /hpf Urine Mucus (None) /hpf 11/14/23 Range/Units 22:08 WBC (3.8-10.6) k/uL RBC (3.80-5.40) m/uL Hgb (11.4-16.0) gm/dL Hct (34.0-46.0) % MCV (80.0-100.0) fL MCH (25.0-35.0) pg MCHC (31.0-37.0) g/dL RDW (11.5-15.5) % Plt Count (150-450) k/uL MPV Neutrophils % % Lymphocytes % % Monocytes % % Eosinophils % % Basophils % % Neutrophils # (1.3-7.7) k/uL Lymphocytes # (1.0-4.8) k/uL Monocytes # (0-1.0) k/uL Eosinophils # (0-0.7) k/uL Basophils # (0-0.2) k/uL Sodium (137-145) mmol/L Potassium (3.5-5.1) mmol/L Chloride (98-107) mmol/L Carbon Dioxide (22-30) mmol/L Anion Gap mmol/L BUN (7-17) mg/dL Creatinine (0.52-1.04) mg/dL Est GFR (CKD-EPI)AfAm (>60 ml/min/1.73 sqM) Est GFR (CKD-EPI)NonAf (>60 ml/min/1.73 sqM) Glucose (74-99) mg/dL Plasma Lactic Acid Rene (0.7-2.0) mmol/L Calcium (8.4-10.2) mg/dL Total Bilirubin (0.2-1.3) mg/dL AST (14-36) U/L ALT (4-34) U/L Alkaline Phosphatase (38-126) U/L Total Protein (6.3-8.2) g/dL Albumin (3.5-5.0) g/dL Lipase (23-300) U/L Urine Color Colorless Urine Appearance Cloudy H (Clear) Urine pH 6.5 (5.0-8.0) Ur Specific [place] 1.014 (1.001-1.035) Urine Protein Negative (Negative) Urine Glucose (UA) Negative (Negative) Urine Ketones Negative (Negative) Urine Blood Negative (Negative) Urine Nitrite Negative (Negative) Urine Bilirubin Negative (Negative) Urine Urobilinogen <2.0 (<2.0) mg/dL Ur Leukocyte Esterase Moderate H (Negative) Urine RBC 4 (0-5) /hpf Urine WBC 7 H (0-5) /hpf Ur Squamous Epith Cells 1 (0-4) /hpf Urine Bacteria Rare H (None) /hpf Urine Mucus Rare H (None) /hpf - Radiology Data Noncontrast CT abdomen/pelvis: 1. Partially obstructing 0.4 cm calcification in the expected left u reterovesical junction. There is mild left hydroureter. 2. Nonobstructing punctate calcification in the inferior pole left kidney. 3. Diverticulosis without acute diverticulitis. 4. Cardiomegaly. Disposition Clinical Impression: Ureterolithiasis Disposition: HOME SELF-CARE Condition: Stable Is patient prescribed a controlled substance at d/c from ED?: No Referrals: Omar Trevizo MD [Primary Care Provider] - 1-2 days Colten Martinez MD [STAFF PHYSICIAN] - 1-2 days Time of Disposition: 00:25
[2023-11-14 19:59] VITALS: RESP 18; TEMP 97.6
[2023-11-14] MEDS: HYDROmorphone 1 MG/ML 1 ML SYRINGE IVP STA (20:01)
[2023-11-14] MEDS: ONDANSETRON 4 MG/2 ML VIAL IVP STA ×2 (20:01→23:11)
[2023-11-14] MEDS: SODIUM CHLORIDE 0.9% 500 ML 500 ML IV STA (20:02)
[2023-11-14 20:17] LABS: Basophils # (A) 0.1 k/uL (0-0.2); Basophils % (A) 1 %; Eosinophils # (A) 0.1 k/uL (0-0.7); Eosinophils % (A) 2 %; HCT 40.9 % (34.0-46.0); HGB 13.6 gm/dL (11.4-16.0); Lymphocytes # (A) 1.2 k/uL (1.0-4.8); Lymphocytes % (A) 20 %; MCH 30.4 pg (25.0-35.0); MCHC 33.2 g/dL (31.0-37.0); MCV 91.6 fL (80.0-100.0); Mean Platelet Volume 8.1; Monocytes # (A) 0.4 k/uL (0-1.0); Monocytes % (A) 6 %; Neutrophils % (A) 68 %; Platelet Count 237 k/uL (150-450); RBC 4.47 m/uL (3.80-5.40); RDW 14.2 % (11.5-15.5)
[2023-11-14 20:29] LABS: ALT 17 U/L (4-34); AST 25 U/L (14-36); African American GFR (CKD) 63 (>60 ml/min/1.73 sqM); Albumin 4.3 g/dL (3.5-5.0); Alkaline Phosphatase 48 U/L (38-126); Anion Gap 8 mmol/L; Blood Urea Nitrogen 28 mg/dL (7-17); Calcium 9.4 mg/dL (8.4-10.2); Carbon Dioxide 25 mmol/L (22-30); Chloride 102 mmol/L (98-107); Glucose 123 mg/dL (74-99); Lipase 166 U/L (23-300); Non-African American GFR(CKD) 54 (>60 ml/min/1.73 sqM); Potassium 3.6 mmol/L (3.5-5.1); Sodium 135 mmol/L (137-145); Total Bilirubin 0.7 mg/dL (0.2-1.3)
--- NOTE | 2023-11-14 21:13 | CT ---
EXAMINATION TYPE: CT abdomen pelvis wo con DATE OF EXAM: 11/14/2023 COMPARISON: INDICATION: Left lower quadrant/left flank pain, N/V. DLP: 507.2 mGycm, Automated exposure control for dose reduction was used. CONTRAST: mL of . Study performed without Oral Contrast TECHNIQUE: Axial images were obtained from above the diaphragm to the pubic rami in the axial plane a t 5 mm thick sections. Reconstructed images are reviewed on the computer in the coronal plane. FINDINGS: Limited CT sections are obtained the lung bases. The lung bases are clear. Cardiomegaly is present. CT ABDOMEN: Liver: Normal Spleen: Normal Pancreas: Normal Adrenal glands: The adrenal glands are normal. Gallbladder: Normal Kidneys: No masses are evident. There is mild left hydronephrosis. A nonobstructing punctate renal st ones in the anterior mid to inferior pole left kidney measuring 0.2 cm. There is mild left hydrourete r. This extends to the mid pelvis. At the expected left ureterovesical junction there is a calcificat ion measuring 0.4 cm may be a partially obstructing distal ureteral vesicle junction stone. Aorta: Vascular calcification is within the aorta. Inferior vena cava: Normal. CT PELVIS: Loops of bowel within the abdomen and pelvis are normal. Sigmoid diverticulosis without acute diverti culitis is present. This study is without oral contrast limiting follow-up evaluation. Prior bowel surgery is evident in the hepatic flexure Appendix: Normal as visualized. Urinary bladder: Normal. Genitourinary structures: Uterus and ovaries are not identified. Osseous structures: No suspicious lytic or sclerotic lesions. IMPRESSION: 1. Partially obstructing 0.4 cm calcification in the expected left ureterovesical junction. 2. Nonobstructing punctate calcification in the inferior pole left kidney. 3. Diverticulosis without acute diverticulitis. 4. Cardiomegaly
[2023-11-14 22:46] LABS: Appearance,Urine Cloudy (Clear); Bacteria,Urine Rare /hpf; Bilirubin,Urine Negative (Negative); Blood,Urine Negative (Negative); Color,Urine Colorless; Glucose,Urine (UA) Negative (Negative); Ketones,Urine Negative (Negative); Leukocyte Esterase,Urine Moderate (Negative); Mucus,Urine Rare /hpf; Nitrite,Urine Negative (Negative); PH, Urine 6.5 (5.0-8.0); Protein,Urine Negative (Negative); RBC,Urine 4 /hpf (0-5); Specific Gravity,Urine 1.014 (1.001-1.035); Squamous Epithelial Cell,Urine 1 /hpf (0-4); Urobilinogen,Urine <2.0 mg/dL (<2.0); WBC,Urine 7 /hpf (0-5)
[2023-11-14] MEDS: HYDROmorphone 0.5 MG/0.5 ML SYRINGE IVP STA (23:11)
[2023-11-14] MEDS: KETOROLAC 15 MG/ML 1 ML VIAL IVP STA (23:12)
[2023-11-15] MEDS: ACET/COD 300 MG/30 MG STARTER PACK 6 TAB BTL PO STA (00:27)
[2023-11-15] MEDS: ONDANSETRON 4 MG ODT STARTER PACK 2 TAB BTL PO STA (00:28)
[2023-11-15 01:18] VITALS: BP 145/91; PULSE 71
== END 2023-11-15 00:40 | disposition home or self-care (01) ==
LOC: EC 19:32
DX: N20.1 Calculus of ureter (principal); K57.90 Diverticulosis of intestine, part unspecified, without perforation or abscess without bleeding; Z88.0 Allergy status to penicillin; Z88.1 Allergy status to other antibiotic agents; Z88.8 Allergy status to other drugs, medicaments and biological substances; Z91.09 Other allergy status, other than to drugs and biological substances
CPT/HCPCS: 36415; 80053; 83605; 83690; 85025; 81001; 74176; 99284; 96374; 96376 ×2; 96375; J2405; J1170 ×2; S0119

== ENCOUNTER 2023-11-16 06:49 | Emergency (ER) | payer MEDICARE ==
[2023-11-16] MEDS: HYDROmorphone 0.5 MG/0.5 ML SYRINGE IVP STA (07:44)
--- NOTE | 2023-11-16 07:49 | ED ---
Abdominal Pain HPI - General Chief Complaint: Abdominal Pain Stated Complaint: Kidney stones Time Seen by Provider: 11/16/23 07:07 Source: patient, family, RN notes reviewed Mode of arrival: wheelchair Limitations: no limitations - History of Present Illness Initial Comments: 73-year-old female presents emergency department complaint of left sided flank pain. Patient states that she was seen here couple days ago for similar pain was diagnosed with kidney stone. She has an appointment today with urologist. Patient states that she has been nauseated had minimal intake and states that the pain meds that she has not been helping. Patient denies any fever no chills no chest pain or shortness of breath - Related Data Home Medications Medication Instructions Recorded Confirmed Albuterol Sulfate [Proair Hfa] 1 - 2 puff INHALATION RT-Q6H PRN 11/23/16 09/03/23 Aspirin 81 mg PO DAILY 11/23/16 09/07/23 Fluticasone Propion/Salmeterol 2 puff INHALATION BID 11/23/16 09/03/23 [Advair Hfa 115-21 Mcg Inhaler] Montelukast [Singulair] 10 mg PO HS 11/23/16 09/03/23 Ascorbic Acid [Vitamin C] 1,000 mg PO DAILY 06/03/20 09/03/23 L.acidoph,Paracasei, B.lactis 1 each PO DAILY 06/03/20 09/03/23 [Probiotic] Metoprolol Succinate [Toprol XL] 25 mg PO QAM 06/03/20 09/07/23 Allergy Shot 1 dose IM DIRECTED 09/03/23 09/03/23 Calcium Carbonate [Calcium] 600 mg PO DAILY 09/03/23 09/03/23 Fenofibrate Nanocrystallized 145 mg PO HS 09/03/23 09/03/23 [Fenofibrate] Losartan [Cozaar] 12.5 mg PO 1200 09/03/23 09/03/23 amLODIPine [Norvasc] 10 mg PO HS 09/07/23 09/07/23 Previous Rx's Medication Instructions Recorded HYDROcodone/APAP 5-325MG [[place] 5] 1 each PO Q6HR PRN #12 tab 11/16/23 Ketorolac [Toradol] 10 mg PO Q8HR #15 tab 11/16/23 Nitrofurantoin Monohyd/M-Cryst 100 mg PO Q12HR #14 cap 11/16/23 [Macrobid] Ondansetron Odt [Zofran Odt] 4 mg PO Q8HR PRN #10 tab 11/16/23 Allergies Allergy/AdvReac Type Severity Reaction Status Date / Time amoxicillin [From Augmentin] Allergy Nausea & Verified 11/14/23 19:36 Vomiting & Diarrhea ciprofloxacin [From Cipro] Allergy Nausea & Verified 11/14/23 19:36 Vomiting clavulanic acid Allergy Nausea & Verified 11/14/23 19:36 [From Augmentin] Vomiting & Diarrhea mold Allergy Cough Verified 11/14/23 19:36 Review of Systems ROS Statement: Those systems with pertinent positive or pertinent negative responses have been documented in the HPI. ROS Other: All systems not noted in ROS Statement are negative. Past Medical History Past Medical History: Asthma, Eye Disorder, GERD/Reflux, Hyperlipidemia, Hypertension, Thyroid Disorder Additional Past Medical History / Comment(s): Aneurysm. Hx migraines, palpitations, hx hiatal hernia. Peripheral double vision. Varicose veins. Vertigo. kidney stone History of Any Multi-Drug Resistant Organisms: None Reported Past Surgical History: Appendectomy, Bladder Surgery, Bowel Resection, Breast Surgery, Heart Catheterization, Hernia Repair, Hysterectomy Additional Past Surgical History / Comment(s): PARATHYROID TUMOR REMOVED, RECTOCELE REPAIR/BLADDER SUSPENSION with hysterectomy, HIATAL HERNIA REPAIR, COLONOSCOPY, EGD, bilateral breast biopsies, RK surgery bilateral eyes, 2nd young rgery for prolapse bladder, surgery to repair rectal tear X2, bilateral cataracts removed, bilateral eyelid surgery, heart ultrasound. Past Anesthesia/Blood Transfusion Reactions: Motion Sickness, Postoperative Nausea & Vomiting (PONV) Additional Past Anesthesia/Blood Transfusion Reaction / Comment(s): PONV W/ ETHER YEARS AGO. Vertigo. Past Psychological History: No Psychological Hx Reported Smoking Status: Never smoker Past Alcohol Use History: None Reported Past Drug Use History: None Reported - Past Family History Sister(s) Family Medical History: Cancer Additional Family Medical History / Comment(s): Breast, spread to lungs, liver and bone. General Exam Limitations: no limitations General appearance: alert, in no apparent distress Head exam: Present: atraumatic, normocephalic, normal inspection Eye exam: Present: normal appearance, PERRL, EOMI. Absent: scleral icterus, conjunctival injection, periorbital swelling Respiratory exam: Present: normal lung sounds bilaterally. Absent: respiratory distress, wheezes, rales, rhonchi, stridor Cardiovascular Exam: Present: regular rate, normal rhythm, normal heart sounds. Absent: systolic murmur, diastolic murmur, rubs, gallop, clicks GI/Abdominal exam: Present: soft, normal bowel sounds. Absent: distended, tend erness, guarding, rebound, rigid Back exam: Present: CVA tenderness (L). Absent: CVA tenderness (R) Neurological exam: Present: alert Skin exam: Present: warm, dry, intact, normal color. Absent: rash Course Vital Signs 11/16/23 11/16/23 11/16/23 07:13 08:00 09:00 Temperature 98.6 F 98.8 F 98.4 F Pulse Rate 70 60 66 Respiratory 20 20 16 Rate Blood Pressure 127/79 127/80 135/73 O2 Sat by Pulse 98 95 96 Oximetry Medical Decision Making - Medical Decision Making Was pt. sent in by a medical professional or institution (, [place], [facility], urgent care, hospital, or fdc...) When possible be specific @ -No Did you speak to anyone other than the patient for history (EMS, parent, family, police, friend...)? What history was obtained from this source @ -No Did you review nursing and triage notes (agree or disagree)? Why? @ -I reviewed and agree with nursing and triage notes Were old charts reviewed (outside hosp., previous admission, EMS record, old EKG, old radiological studies, urgent care reports/EKG's, fdc records)? Report findings @ -Recent CT, laboratory studies Differential Diagnosis (chest pain, altered mental status, abdominal pain women, abdominal pain men, vaginal bleeding, weakness, fever, dyspnea, syncope, headache, dizziness, GI bleed, back pain, seizure, CVA, palpatations, mental health, musculoskeletal)? @ -Differential Abdominal Pain Women: Appendicitis, Cholecystitis, diverticulosis, ischemic bowel, pancreatitis, hepatitis, UTI, gastroenteritis, AAA, incarcerated hernia, bowel obstruction, constipation, inflammatory bowel, hepatitis, peptic ulcer disease, splenic infarction, perforated viscus, vulvitis, ovarian torsion, PID, kidney stone, placenta abruption, this is not meant to be an all-inclusive list EKG interpreted by me (3pts min.). @ -None X-rays interpreted by me (1pt min.). @ -X-ray KUB nonspecific findings CT interpreted by me (1pt min.). @ -None done U/S interpreted by me (1pt. min.). @ -None done What testing was considered but not performed or refused? (CT, X-rays, U/S, labs)? Why? @ -None What meds were considered but not given or refused? Why? @ -None Did you discuss the management of the patient with other professionals (pr ofessionals i.e. , [place], [facility], lab, RT, psych nurse, social service coordinator, life skills teacher, teacher, parole hearing officer, leather case finisher)? Give summary @ -No Was smoking cessation discussed for >3mins.? @ -No Was critical care preformed (if so, how long)? @ -No Were there social determinants of health that impacted care today? How? (Homelessness, low income, unemployed, alcoholism, drug addiction, transportation, low edu. Level, literacy, decrease access to med. care, [facility], rehab)? @ -No Was there de-escalation of care discussed even if they declined (Discuss DNR or withdrawal of care, Hospice)? DNR status @ -No What co-morbidities impacted this encounter? (DM, HTN, Smoking, COPD, CAD, Cancer, CVA, ARF, Chemo, Hep., AIDS, mental health diagnosis, sleep apnea, morbid obesity)? @ -None Was patient admitted / discharged? Hospital course, mention meds given and route, prescriptions, significant lab abnormalities, going to OR and other pertinent info. @ -This patient has a left renal calculus found on CT on prior visit pain is improved at this time. She does have notable urine bacteria in which patient was given Rocephin and discharged on Macrobid. Patient has a follow-up point with urologist today. Undiagnosed new problem with uncertain prognosis? @ -No Drug Therapy requiring intensive monitoring for toxicity (Heparin, Nitro, Insulin, Cardizem)? @ -No Were any procedures done? @ -No Diagnosis/symptom? @ -Left ureteral calculus Acute, or Chronic, or Acute on Chronic? @ -Acute Uncomplicated (without systemic symptoms) or Complicated (systemic symptoms)? @ -uncomplicated Side effects of treatment? @ -No Exacerbation, Progression, or Severe Exacerbation? @ -No Poses a threat to life or bodily function? How? (Chest pain, [place], [place], pneumonia, PE, COPD, DKA, ARF, appy, cholecystitis, CVA, Diverticulitis, Homicidal, Suicidal, threat to staff... and all critical care pts) @ -No - Lab Data Result diagrams: 11/16/23 07:54 11/16/23 07:54 Lab Results 11/16/23 11/16/23 11/16/23 Range/Units 07:40 07:54 07:54 WBC 8.1 (3.8-10.6) k/uL RBC 4.30 (3.80-5.40) m/uL Hgb 12.9 (11.4-16.0) gm/dL Hct 39.2 (34.0-46.0) % MCV 91.1 (80.0-100.0) fL MCH 30.0 (25.0-35.0) pg MCHC 33.0 (31.0-37.0) g/dL RDW 14.1 (11.5-15.5) % Plt Count 235 (150-450) k/uL MPV 8.6 Neutrophils % 85 % Lymphocytes % 7 % Monocytes % 6 % Eosinophils % 1 % Basophils % 0 % Neutrophils # 6.8 (1.3-7.7) k/uL Lymphocytes # 0.6 L (1.0-4.8) k/uL Monocytes # 0.5 (0-1.0) k/uL Eosinophils # 0.1 (0-0.7) k/uL Basophils # 0.0 (0-0.2) k/uL Sodium 134 L (137-145) mmol/L Potassium 3.4 L (3.5-5.1) mmol/L Chloride 100 (98-107) mmol/L Carbon Dioxide 26 (22-30) mmol/L Anion Gap 8 mmol/L BUN 24 H (7-17) mg/dL Creatinine 1.05 H (0.52-1.04) mg/dL Est GFR (CKD-EPI)AfAm 60 (>60 ml/min/1.73 sqM) Est GFR (CKD-EPI)NonAf 52 (>60 ml/min/1.73 sqM) Glucose 124 H (74-99) mg/dL Calcium 9.4 (8.4-10.2) mg/dL Total Bilirubin 0.9 (0.2-1.3) mg/dL AST 24 (14-36) U/L ALT 16 (4-34) U/L Alkaline Phosphatase 47 (38-126) U/L Total Protein 6.6 (6.3-8.2) g/dL Albumin 3.9 (3.5-5.0) g/dL Urine Color Yellow Urine Appearance Cloudy H (Clear) Urine pH 6.0 (5.0-8.0) Ur Specific [place] 1.029 (1.001-1.035) Urine Protein Trace H (Negative) Urine Glucose (UA) Negative (Negative) Urine Ketones Negative (Negative) Urine Blood Moderate H (Negative) Urine Nitrite Negative (Negative) Urine Bilirubin Negative (Negative) Urine Urobilinogen <2.0 (<2.0) mg/dL Ur Leukocyte Esterase Small H (Negative) Urine RBC 35 H (0-5) /hpf Urine WBC 27 H (0-5) /hpf Ur Squamous Epith Cells 3 (0-4) /hpf Urine Mucus Occasional H (None) /hpf Disposition Clinical Impression: Left ureteral calculus Disposition: TRANSFER TO PSYCH HOSP/UNIT Condition: Stable Instructions (If sedation given, give patient instructions): Kidney Stones (ED) Additional Instructions: Please return to the Emergency Department if symptoms worsen or any other concerns. Prescriptions: Nitrofurantoin Monohyd/M-Cryst [Macrobid] 100 mg PO Q12HR #14 cap HYDROcodone/APAP 5-325MG [[place] 5] 1 each PO Q6HR PRN #12 tab PRN Reason: Pain Ketorolac [Toradol] 10 mg PO Q8HR #15 tab Ondansetron Odt [Zofran Odt] 4 mg PO Q8HR PRN #10 tab PRN Reason: Nausea Is patient prescribed a controlled substance at d/c from ED?: Yes When asked, does pt state using other controlled substances?: No If prescribed controlled substance>3 days was MAPS reviewed?: Prescribed <3 Days If opioid is for acute pain is fill amount 7 days or less?: Yes If Rx opioid, was Start Talking consent form obtained?: Yes Referrals: Omar Trevizo MD [Primary Care Provider] - 1-2 days Colten Martinez MD [STAFF PHYSICIAN] - 1-2 days Time of Disposition: 09:18
[2023-11-16] MEDS: KETOROLAC 15 MG/ML 1 ML VIAL IVP STA (07:56)
[2023-11-16] MEDS: SODIUM CHLORIDE 0.9% 500 ML 500 ML IV STA (07:57)
[2023-11-16] MEDS: SODIUM CHLORIDE 0.9% 1,000 ML IV STA (07:57)
[2023-11-16] MEDS: ONDANSETRON 4 MG/2 ML VIAL IVP STA (07:57)
[2023-11-16] MEDS: HYDROmorphone 1 MG/ML 1 ML SYRINGE IVP STA (07:59)
[2023-11-16 08:05] LABS: Basophils % (A) 0 %; Eosinophils # (A) 0.1 k/uL (0-0.7); Eosinophils % (A) 1 %; HCT 39.2 % (34.0-46.0); HGB 12.9 gm/dL (11.4-16.0); Lymphocytes # (A) 0.6 k/uL (1.0-4.8); Lymphocytes % (A) 7 %; MCV 91.1 fL (80.0-100.0); Mean Platelet Volume 8.6; Monocytes # (A) 0.5 k/uL (0-1.0); Monocytes % (A) 6 %; Neutrophils # (A) 6.8 k/uL (1.3-7.7); Neutrophils % (A) 85 %; Platelet Count 235 k/uL (150-450); RDW 14.1 % (11.5-15.5); WBC 8.1 k/uL (3.8-10.6)
[2023-11-16 08:11] LABS: Appearance,Urine Cloudy (Clear); Bilirubin,Urine Negative (Negative); Blood,Urine Moderate (Negative); Color,Urine Yellow; Glucose,Urine (UA) Negative (Negative); Ketones,Urine Negative (Negative); Leukocyte Esterase,Urine Small (Negative); Mucus,Urine Occasional /hpf; Nitrite,Urine Negative (Negative); Protein,Urine Trace (Negative); RBC,Urine 35 /hpf (0-5); Specific Gravity,Urine 1.029 (1.001-1.035); Squamous Epithelial Cell,Urine 3 /hpf (0-4); Urobilinogen,Urine <2.0 mg/dL (<2.0); WBC,Urine 27 /hpf (0-5)
[2023-11-16 08:22] LABS: ALT 16 U/L (4-34); AST 24 U/L (14-36); African American GFR (CKD) 60 (>60 ml/min/1.73 sqM); Albumin 3.9 g/dL (3.5-5.0); Alkaline Phosphatase 47 U/L (38-126); Anion Gap 8 mmol/L; Blood Urea Nitrogen 24 mg/dL (7-17); Calcium 9.4 mg/dL (8.4-10.2); Carbon Dioxide 26 mmol/L (22-30); Chloride 100 mmol/L (98-107); Glucose 124 mg/dL (74-99); Non-African American GFR(CKD) 52 (>60 ml/min/1.73 sqM); Potassium 3.4 mmol/L (3.5-5.1); Sodium 134 mmol/L (137-145); Total Bilirubin 0.9 mg/dL (0.2-1.3); Total Protein 6.6 g/dL (6.3-8.2)
--- NOTE | 2023-11-16 08:25 | XR ---
EXAMINATION TYPE: XR KUB DATE OF EXAM: 11/16/2023 COMPARISON: CT abdomen 11/14/2023 INDICATION: Left lower quadrant pain TECHNIQUE: Single view abdomen FINDINGS: Abundant bowel gas to the colon. Proximal transverse colon appears dilated. Small bowel loops are non dilated. Psoas margins are normal. No organomegaly is present. IMPRESSION: 1. Nonspecific bowel gas pattern. Transverse colon is somewhat prominent. No obstruction identified.
[2023-11-16] MEDS: cefTRIAXone IN SWFI 1,000 MG/10 ML SYRINGE IVP STA (08:57)
[2023-11-16 09:25] VITALS: BP 135/73; PULSE 66; RESP 16; TEMP 98.4
== END 2023-11-16 09:26 ==
LOC: EC 06:49
DX: N20.2 Calculus of kidney with calculus of ureter (principal); Z88.0 Allergy status to penicillin; Z88.1 Allergy status to other antibiotic agents; Z91.048 Other nonmedicinal substance allergy status; Z90.49 Acquired absence of other specified parts of digestive tract
CPT/HCPCS: 36415; 80053; 85025; 81001; 87086; 74018; 99285; 96374; 96375 ×3; 96361; J2405; J0696; J1170; J1885

== ENCOUNTER → 2023-12-09 | Outpatient (CLI) | payer MEDICARE ==
--- NOTE | 2023-12-09 15:06 | US ---
EXAMINATION TYPE: US kidneys/renal and bladder DATE OF EXAM: 12/09/2023 COMPARISON: 07/31/2016 CLINICAL INDICATION: Female, 73 years old with history of N13.2 HYDRONEPHROSIS WITH RENAL AND URETERA L CALCU; Hx Lt renal and distal ureter stones EXAM MEASUREMENTS: Right Kidney: 11.2x5.1x5.6 cm Left Kidney: 11.2x5.2x5.3 cm Right Kidney: No hydronephrosis or masses seen as best visualized Left Kidney: No hydronephrosis or masses seen as best visualized Bladder: wnl, as best visualized Bilateral Jets seen: Yes There is no evidence for hydronephrosis at this point in time. No nephrolithiasis is seen. No sandy s are identified. The urinary bladder is anechoic. Bilateral ureteral jets are seen. exam limited due to overlying bowel gas and body habitus IMPRESSION: No significant abnormality seen of the kidneys.
== END | disposition home or self-care (01) ==
LOC: RADUSWWP 12:47
PROVIDERS: ATTEND Urology
DX: N13.2 Hydronephrosis with renal and ureteral calculous obstruction (principal)
CPT/HCPCS: 76770

== ENCOUNTER → 2024-05-01 | Outpatient (CLI) | payer MEDICARE ==
[2024-05-01 15:36] LABS: BUN/Creat Ratio 24.86 Ratio (12.00-20.00); Blood Urea Nitrogen 17.4 mg/dL (9.0-27.0); Carbon Dioxide 28.5 mmol/L (21.6-31.8); Chloride 101 mmol/L (96-109); Creatine Kinase 34 U/L (26-186); Glucose 103 mg/dL (70-110); Potassium 3.4 mmol/L (3.5-5.5); Sodium 141 mmol/L (135-145)
[2024-05-01 15:37] LABS: ALT 16 U/L (8-44); AST 18 U/L (13-35); Albumin/Globulin Ratio 1.54 Ratio (1.60-3.17); Alkaline Phosphatase 87 U/L (41-126); Calcium 9.8 mg/dL (8.7-10.3); Globulin 2.6 g/dL (1.6-3.3); Total Bilirubin 0.2 mg/dL (0.3-1.2); Total Protein 6.6 g/dL (6.2-8.2)
[2024-05-01 16:57] LABS: Basophils # (A) 0.04 X 10*3/uL (0.00-0.10); Basophils % (A) 0.8 %; Eosinophils # (A) 0.09 X 10*3/uL (0.04-0.35); Eosinophils % (A) 1.7 %; HCT 41.6 % (37.2-46.3); HGB 12.9 g/dL (12.0-15.0); Lymphocytes # (A) 1.72 X 10*3/uL (0.90-5.00); Lymphocytes % (A) 32.3 %; MCH 29.9 pg (27.0-32.0); MCV 96.5 FL (80.0-97.0); Mean Platelet Volume 11.4 FL (9.5-12.2); Monocytes # (A) 0.55 X 10*3/uL (0.20-1.00); Monocytes % (A) 10.3 %; NRBC Per 100 WBC 0 X 10*3/uL (0.00-0.01); Neutrophils # (A) 2.91 X 10*3/uL (1.80-7.70); Neutrophils % (A) 54.7 %; Platelet Count 431 X 10*3/uL (140-440); RBC 4.31 X 10*6/uL (4.10-5.20); RDW 14.2 % (11.5-14.5); WBC 5.32 X 10*3/uL (4.50-10.00)
== END | disposition home or self-care (01) ==
LOC: LABWHC1 12:16
PROVIDERS: ATTEND Internal Medicine Critical Care Medicine
DX: I35.1 Nonrheumatic aortic (valve) insufficiency (principal)
CPT/HCPCS: 36415; 80053; 82550; 85025

== ENCOUNTER → 2024-05-19 | Outpatient (CLI) | payer MEDICARE | END | disposition home or self-care (01) | LOC: LABWHC1 13:14 | PROVIDERS: ATTEND Internal Medicine Critical Care Medicine | DX: Z00.00 Encounter for general adult medical examination without abnormal findings | CPT/HCPCS: 87636 ==

== ENCOUNTER → 2024-06-23 | Outpatient (CLI) | payer MEDICARE ==
--- NOTE | 2024-06-30 12:11 | MM ---
Reason for Exam: Screening (asymptomatic). Last mammogram was performed 1 year(s) and 2 month(s) ago. Patient History: Menarche at age 11. First Full-Term at age 18. Hysterectomy at age 55. Postmenopausal. Other cancer. Estrogen for 7 years from age 50 until age 57. Patient used Progesterone for 6 years. Benign Cyst Aspiration on the right side. 12/31/2016, Benign Core Biopsy on the left side. 12/31/2016, Benign Core Biopsy on the right side. 05/11/2008, Benign Core Biopsy on the left side. Sister had breast cancer, age 63. Risk Values: Raegan 5 year model risk: 5.0%. NCI Lifetime model risk: 10.6%. Prior Study Comparison: 04/11/2021 Bilateral Screening Mammogram, [facility]. 04/21/2022 Bilateral MG 3D screening mammo w/cad, [facility]. 04/23/2023 Bilateral MG 3D screening mammo w/cad, [facility]. Tissue Density: The breasts are heterogeneously dense, which may obscure small masses. Findings: Analyzed By CAD. Bilateral breast biopsy clips. Right breast: There is no suspicious group of microcalcifications or new suspicious mass. Left breast: There is no suspicious group of microcalcifications or new suspicious mass. Overall Assessment: Negative, BI-RAD 1 Management: Screening Mammogram of both breasts in [address] [facility] will attempt to contact patient to return for supplemental views and ultrasound if indicated. Patient should continue monthly self-breast exams. A clinical breast exam by your physician is recommended on an annual basis. This exam should not preclude additional follow-up of suspicious palpable abnormalities. Note on Raegan scores and lifetime risk: 1. A Raegan score greater than 3% is considered moderate risk. If this is the case, consider specialist referral to assess eligibility for a risk reducing agent. 2. If overall lifetime risk for the development of breast cancer is 20% or higher, the patient may qualify for future screening with alternating mammogram and breast MRI. [facility], , 06/30/2024 12:08 PM. Electronically signed and approved by: Vinayak Abbott DO
== END | disposition home or self-care (01) ==
LOC: RADMAMWWP 07:21
PROVIDERS: ATTEND Internal Medicine
DX: Z12.31 Encounter for screening mammogram for malignant neoplasm of breast (principal); Z78.0 Asymptomatic menopausal state; Z80.3 Family history of malignant neoplasm of breast; R92.333 Mammographic heterogeneous density, bilateral breasts
CPT/HCPCS: 77063; 77067

== ENCOUNTER → 2024-08-01 | Outpatient (CLI) | payer MEDICARE ==
[2024-08-01 12:59] LABS: BUN/Creat Ratio 26.89 Ratio (12.00-20.00); Blood Urea Nitrogen 24.2 mg/dL (9.0-27.0); Calcium 9.8 mg/dL (8.7-10.3); Carbon Dioxide 28.5 mmol/L (21.6-31.8); Chloride 104 mmol/L (96-109); Glucose 96 mg/dL (70-110); Potassium 3.9 mmol/L (3.5-5.5); Sodium 143 mmol/L (135-145)
== END | disposition home or self-care (01) ==
LOC: LABWHC1 07:04
PROVIDERS: ATTEND Surgery
DX: I71.21 Aneurysm of the ascending aorta, without rupture (principal)
CPT/HCPCS: 36415; 80048

== ENCOUNTER → 2024-08-03 | Outpatient (CLI) | payer MEDICARE ==
--- NOTE | 2024-08-03 10:51 | CT ---
EXAMINATION TYPE: CT angio chest DATE OF EXAM: 08/03/2024 COMPARISON: 12/16/2021 CLINICAL INDICATION: Female, 73 years old with history of I35.1 Aortic Valve insufficiency; PHH, Aort ic valve insufficiency, aortic aneurysm w/o rupture. Sx in December to replace valve with cow valve, pt st ates aortic aneurysm was repaired. PT having problems with breathing/lung function since surgery. TECHNIQUE: CTA scan of the thorax is performed with IV Contrast, patient injected with 100 mL of Isovue 370, pul monary embolism protocol. MIP images are created and reviewed. CT DLP: 644.80 mGycm Automated exposure control for dose reduction was used. FINDINGS: LUNGS: Emphysematous changes are seen with bilateral areas of subsegmental consolidation. Could be on the basis of scarring or pneumonitis. There is a 6 mm nodule in the right upper lobe image 24 series 6 and image 54 series 11. Additionally there is a 7 mm groundglass nodule right lower lobe image 41 series 6. A 3 month follow-up CT scan recommended. Elevated left hemidiaphragm. Aorta: There is mild aneurysmal dilation of the aortic root measuring up to 4.5 cm. The ascending ao rta measured maximal dimension of 4.1 cm. The aortic arch demonstrates ectasia measuring up to 3.3 cm. There is mild atherosclerotic change. In cidental note made of a common origin of the brachiocephalic and left common carotid artery compatibl e with bovine arch. Ectasia of the origin of the brachiocephalic artery measuring up to 2.5 cm. Findi ngs are suggestive of aortic valve replacement surgery. MEDIASTINUM: The heart is enlarged. No pathologic lymphadenopathy. Borderline mediastinal adenopathy likely reactive. Proximal pulmonary vasculature enhances normally with the pulmonary trunk measuring a maximal dimension of 3.1 cm and borderline in size. Component of pulmonary arterial hypertension in the differential diagnosis. Median sternotomy changes. OTHER: There is a nodule within the left breast with small calcification. Reference image 30 series 3 measuring 1.7 cm stable from prior exam. There is also a 1.2 cm nodule along the medial margin of t he right breast stable. Multilevel hypertrophic and degenerative changes spine. Punctate nonobstructing left renal calculus. IMPRESSION: 1. Median sternotomy changes with findings suggestive of aortic valve replacement surgery. Maximal di mension of the thoracic aorta on today's exam measures 4.3 cm 2. There are right-sided pulmonary nodules for which three-month follow-up CT scan is recommended. 3. COPD with scattered areas of consolidation likely in the basis of atelectasis versus pneumonitis. Correlate clinically. 4. Stable bilateral breast nodules. [facility], , 08/03/2024 10:49 AM
== END | disposition home or self-care (01) ==
LOC: RADCTMAIN 07:47
PROVIDERS: ATTEND Surgery
DX: I35.1 Nonrheumatic aortic (valve) insufficiency (principal); N63.20 Unspecified lump in the left breast, unspecified quadrant; N63.10 Unspecified lump in the right breast, unspecified quadrant
CPT/HCPCS: 71275; Q9967

== ENCOUNTER → 2024-08-22 | Outpatient (CLI) | payer BC, MEDICARE | END | disposition home or self-care (01) | LOC: LABWHC1 09:09 | PROVIDERS: ATTEND Internal Medicine | DX: Z98.890 Other specified postprocedural states (principal) | CPT/HCPCS: 36415; 82306; 83970 ==

== ENCOUNTER → 2024-09-14 | Outpatient (CLI) | payer MEDICARE ==
[2024-09-14 20:35] LABS: Alternaria alternata IgE <0.10 kU/L; Aspergillus fumagatus IgE 1.25 kU/L; Birch IgE <0.10 kU/L; Cat Epith & Dander IgE <0.10 kU/L; Cladosporian herbarum IgE <0.10 kU/L; Cockroach IgE <0.10 kU/L; Dermato. farinae IgE <0.10 kU/L; Dog Dander IgE <0.10 kU/L; Elm IgE <0.10 kU/L; Maple (Box Elder) IgE <0.10 kU/L; Oak IgE <0.10 kU/L; Ragweed,Common IgE <0.10 kU/L; Red Top (Bentgrass) IgE <0.10 kU/L
== END | disposition home or self-care (01) ==
LOC: LABWHC1 08:23
PROVIDERS: ATTEND Internal Medicine Critical Care Medicine
DX: J45.40 Moderate persistent asthma, uncomplicated (principal)
CPT/HCPCS: 36415; 82785; 85008; 86003

== ENCOUNTER → 2024-09-14 | Outpatient (CLI) | payer MEDICARE | LOC: CPPFTMAIN 07:16 | PROVIDERS: ATTEND Internal Medicine Critical Care Medicine | DX: R91.1 Solitary pulmonary nodule (principal); Z88.0 Allergy status to penicillin; Z88.1 Allergy status to other antibiotic agents; Z77.120 Contact with and (suspected) exposure to mold (toxic) | CPT/HCPCS: 94060; 94726; 94729 ==

== ENCOUNTER 2024-09-15 09:10 | Observation (INO) | payer MEDICARE ==
--- NOTE | 2024-09-15 09:42 | ED ---
General Adult HPI - General Chief complaint: Arrhythmia/Palpitations Stated complaint: SOB,irreg heart rate Time Seen by Provider: 09/15/24 09:23 Source: patient, RN notes reviewed, old records reviewed Mode of arrival: ambulatory Limitations: no limitations - History of Present Illness Initial comments: 74-year-old female presenting with dyspnea, palpitations and lightheadedness. Symptom began this morning just prior to arrival. She states that she checked her heart rate and it was elevated at about 160. She had a previous history of atrial fibrillation with open heart surgery for aortic valve replacement. She states that this was an episode associated with surgery and has not been persistent. She is currently on metoprolol and fenofibrate. She took her metoprolol after the onset of symptoms today. No central chest pain. Dyspnea is improved. - Related Data Home Medications Medication Instructions Recorded Confirmed Albuterol Sulfate [Proair Hfa] 2 puff INHALATION RT-Q6H PRN 11/23/16 09/15/24 Fluticasone Propion/Salmeterol 2 puff INHALATION RT-BID 11/23/16 09/15/24 [Advair Hfa 115-21 Mcg Inhaler] Montelukast [Singulair] 10 mg PO HS 11/23/16 09/15/24 Ascorbic Acid [Vitamin C] 1,000 mg PO DAILY 06/03/20 09/15/24 L.acidoph,Paracasei, B.lactis 1 cap PO DAILY 06/03/20 09/15/24 [Probiotic] Allergy Shot 1 dose IM QMONTHLY 09/03/23 09/15/24 Calcium Carbonate [Calcium] 600 mg PO DAILY@1200 09/03/23 09/15/24 Fenofibrate Nanocrystallized 145 mg PO HS 09/03/23 09/15/24 [Fenofibrate] Aspirin EC [Ecotrin] 325 mg PO DAILY 09/15/24 09/15/24 Ergocalciferol (Vitamin D2) 1,250 mcg PO QMONTHLY 09/15/24 09/15/24 [Drisdol (50,000 Iu)] Metoprolol Tartrate [Lopressor] 12.5 mg PO BID 09/15/24 09/15/24 Allergies Allergy/AdvReac Type Severity Reaction Status Date / Time amoxicillin [From Augmentin] Allergy Nausea & Verified 09/15/24 10:33 Vomiting & Diarrhea ciprofloxacin [From Cipro] Allergy Nausea & Verified 09/15/24 10:33 Vomiting clavulanic acid Allergy Nausea & Verified 09/15/24 10:33 [From Augmentin] Vomiting & Diarrhea mold Allergy Cough Verified 09/15/24 10:33 Review of Systems ROS Statement: Those systems with pertinent positive or pertinent negative responses have been documented in the HPI. ROS Other: All systems not noted in ROS Statement are negative. Past Medical History Past Medical History: Asthma, Eye Disorder, GERD/Reflux, Hyperlipidemia, Hypertension, Thyroid Disorder Additional Past Medical History / Comment(s): Aneurysm. Hx migraines, palpitations, hx hiatal hernia. Peripheral double vision. Varicose veins. Vertigo. kidney stone History of Any Multi-Drug Resistant Organisms: None Reported Past Surgical History: Appendectomy, Bladder Surgery, Bowel Resection, Breast Surgery, Heart Catheterization, Hernia Repair, Hysterectomy Additional Past Surgical History / Comment(s): PARATHYROID TUMOR REMOVED, RECTOCELE REPAIR/BLADDER SUSPENSION with hysterectomy, HIATAL HERNIA REPAIR, COLONOSCOPY, EGD, bilateral breast biopsies, RK surgery bilateral eyes, 2nd surgery for prolapse bladder, surgery to repair rectal tear X2, bilateral cataracts removed, bilateral eyelid surgery, heart ultrasound. Past Anesthesia/Blood Transfusion Reactions: Motion Sickness, Postoperative Nausea & Vomiting (PONV) Additional Past Anesthesia/Blood Transfusion Reaction / Comment(s): PONV W/ ETHER YEARS AGO. Vertigo. Past Psychological History: No Psychological Hx Reported Smoking Status: Never smoker Past Alcohol Use History: None Reported Past Drug Use History: None Reported - Past Family History Sister(s) Family Medical History: Cancer Additional Family Medical History / Comment(s): Breast, spread to lungs, liver and bone. General Exam Limitations: no limitations General appearance: alert, in no apparent distress Head exam: Present: atraumatic, normocephalic Eye exam: Present: normal appearance, PERRL Neck exam: Present: normal inspection. Absent: meningismus Respiratory exam: Present: decreased breath sounds. Absent: respiratory distress Cardiovascular Exam: Present: regular rate, irregular rhythm GI/Abdominal exam: Present: soft. Absent: distended, tenderness Extremities exam: Present: normal inspection, full ROM, normal capillary refill. Absent: calf tenderness Neurological exam: Present: alert, oriented X3, CN II-XII intact. Absent: motor sensory deficit Psychiatric exam: Present: normal affect, normal mood Skin exam: Present: warm, dry Course Vital Signs 09/15/24 09/15/24 09/15/24 09:17 09:37 10:24 Temperature 97.2 F L Pulse Rate 54 L 57 L Pulse Rate [ 54 L Last Putter Away ] Respiratory 20 19 Rate Blood Pressure 150/94 133/66 O2 Sat by Pulse 99 98 Oximetry Medical Decision Making - Medical Decision Making Was pt. sent in by a medical professional or institution (, GO, DRAW OPERATOR, urgent care, hospital, or [facility]...) When possible be specific @ -No Did you speak to anyone other than the patient for history (EMS, parent, family, police, friend...)? What history was obtained from this source @Yes patient's who is at bedside. Did you review nursing and triage notes (agree or disagree)? Why? @ -I reviewed and agree with nursing and triage notes Were old charts reviewed (outside hosp., previous admission, EMS record, old EKG, old radiological studies, urgent care reports/EKG's, [facility] records)? Report findings @ -No old charts were reviewed Differential Palpitations Ventricular arrhythmias, atrial arrhythmias, myocardial infarction, anemia, thyrotoxicosis, electrolyte imbalance, hypokalemia, pulmonary embolism, pulm onary disease, drugs, alcohol, anxiety, stress.... This is not meant to be an all-inclusive list. EKG interpreted by me (3pts min.). @ -Suspect ectopic atrial pacemaker ventricular rate of 70, wide-complex QRS with PVC, AK interval 133, QRS duration 158, QTc 499 X-rays interpreted by me (1pt min.). @ -Chest x-ray negative for acute cardiopulmonary findings CT interpreted by me (1pt min.). @ -None done U/S interpreted by me (1pt. min.). @ -None done What testing was considered but not performed or refused? (CT, X-rays, U/S, labs)? Why? @ -None What meds were considered but not given or refused? Why? @ -None Did you discuss the management of the patient with other professionals (devon briseno i.e. GO Tinajero, DRAW OPERATOR, lab, RT, psych nurse, social welfare clerk, battery starter, teacher, medical information officer, bilingual case manager)? Give summary @Magdi shelley for sound physician Was smoking cessation discussed for >3mins.? @ -No Was critical care preformed (if so, how long)? @ -No Were there social determinants of health that impacted care today? How? (Homelessness, low income, unemployed, alcoholism, drug addiction, transportation, low edu. Level, literacy, decrease access to med. care, long-term, rehab)? @ -No Was there de-escalation of care discussed even if they declined (Discuss DNR or withdrawal of care, Hospice)? DNR status @ -No What co-morbidities impacted this encounter? (DM, HTN, Smoking, COPD, CAD, Cancer, CVA, ARF, Chemo, Hep., AIDS, mental health diagnosis, sleep apnea, morbid obesity)? @Aortic valve replacement and prior history of atrial fibrillation Was patient admitted / discharged? Hospital course, mention meds given and route, prescriptions, significant lab abnormalities, going to OR and other pertinent info. @ -74-year-old female presenting with palpitation, racing heart, heart rate of 160. Patient's rate is controlled upon arrival with frequent PVCs. No ST segment elevation. Chest x-ray is clear. She has normal CBC, normal CMP, normal electrolytes, negative troponin. Given the degree of ectopy she will be observed on telemetry with cardiology on consultation. Undiagnosed new problem with uncertain prognosis? @ -No Drug Therapy requiring intensive monitoring for toxicity (Heparin, Nitro, Insulin, Cardizem)? @ -No Were any procedures done? @ -No Diagnosis/symptom? @ -[Palpitations, frequent PVC, tachy dysrhythmia Acute, or Chronic, or Acute on Chronic? @ -Acute Uncomplicated (without systemic symptoms) or Complicated (systemic symptoms)? @ -[default Side effects of treatment? @ -No Exacerbation, Progression, or Severe Exacerbation? @ -No Poses a threat to life or bodily function? How? (Chest pain, USA, ID, pneumonia, PE, COPD, DKA, ARF, appy, cholecystitis, CVA, Diverticulitis, Homicidal, Suicidal, threat to staff... and all critical care pts) @ -Yes, arrhythmia - Lab Data Result diagrams: 09/15/24 10:12 09/15/24 10:12 Lab Results 09/15/24 09/15/24 09/15/24 Range/Units 10:12 10:12 10:12 WBC 5.8 (3.8-10.6) k/uL RBC 4.52 (3.80-5.40) m/uL Hgb 13.8 (11.4-16.0) gm/dL Hct 41.5 (34.0-46.0) % MCV 91.7 (80.0-100.0) fL MCH 30.5 (25.0-35.0) pg MCHC 33.3 (31.0-37.0) g/dL RDW 14.5 (11.5-15.5) % Plt Count 279 (150-450) k/uL MPV 7.5 Neutrophils % 61 % Lymphocytes % 27 % Monocytes % 6 % Eosinophils % 3 % Basophils % 1 % Neutrophils # 3.6 (1.3-7.7) k/uL Lymphocytes # 1.6 (1.0-4.8) k/uL Monocytes # 0.3 (0-1.0) k/uL Eosinophils # 0.2 (0-0.7) k/uL Basophils # 0.1 (0-0.2) k/uL PT 11.6 (10.0-12.5) sec INR 1.1 (<1.2) APTT 23.9 (22.0-30.0) sec Sodium 136 L (137-145) mmol/L Potassium 3.6 (3.5-5.1) mmol/L Chloride 102 (98-107) mmol/L Carbon Dioxide 26 (22-30) mmol/L Anion Gap 8 mmol/L BUN 29 H (7-17) mg/dL Creatinine 0.78 (0.52-1.04) mg/dL Est GFR (CKD-EPI)AfAm 86 (>60 ml/min/1.73 sqM) Est GFR (CKD-EPI)NonAf 74 (>60 ml/min/1.73 sqM) Glucose 95 (74-99) mg/dL Calcium 9.6 (8.4-10.2) mg/dL Magnesium 2.1 (1.6-2.3) mg/dL Total Bilirubin 0.7 (0.2-1.3) mg/dL AST 27 (14-36) U/L ALT 18 (4-34) U/L Alkaline Phosphatase 45 (38-126) U/L Troponin I (0.000-0.034) ng/mL Total Protein 6.7 (6.3-8.2) g/dL Albumin 4.0 (3.5-5.0) g/dL TSH 3.870 (0.465-4.680) mIU/L Urine Color Urine Appearance (Clear) Urine pH (5.0-8.0) Ur Specific [place] (1.001-1.035) Urine Protein (Negative) Urine Glucose (UA) (Negative) Urine Ketones (Negative) Urine Blood (Negative) Urine Nitrite (Negative) Urine Bilirubin (Negative) Urine Urobilinogen (<2.0) mg/dL Ur Leukocyte Esterase (Negative) Urine RBC (0-5) /hpf Urine WBC (0-5) /hpf Ur Squamous Epith Cells (0-4) /hpf Hyaline Casts (0-2) /lpf Urine Mucus (None) /hpf 09/15/24 09/15/24 Range/Units 10:12 10:15 WBC (3.8-10.6) k/uL RBC (3.80-5.40) m/uL Hgb (11.4-16.0) gm/dL Hct (34.0-46.0) % MCV (80.0-100.0) fL MCH (25.0-35.0) pg MCHC (31.0-37.0) g/dL RDW (11.5-15.5) % Plt Count (150-450) k/uL MPV Neutrophils % % Lymphocytes % % Monocytes % % Eosinophils % % Basophils % % Neutrophils # (1.3-7.7) k/uL Lymphocytes # (1.0-4.8) k/uL Monocytes # (0-1.0) k/uL Eosinophils # (0-0.7) k/uL Basophils # (0-0.2) k/uL PT (10.0-12.5) sec INR (<1.2) APTT (22.0-30.0) sec Sodium (137-145) mmol/L Potassium (3.5-5.1) mmol/L Chloride (98-107) mmol/L Carbon Dioxide (22-30) mmol/L Anion Gap mmol/L BUN (7-17) mg/dL Creatinine (0.52-1.04) mg/dL Est GFR (CKD-EPI)AfAm (>60 ml/min/1.73 sqM) Est GFR (CKD-EPI)NonAf (>60 ml/min/1.73 sqM) Glucose (74-99) mg/dL Calcium (8.4-10.2) mg/dL Magnesium (1.6-2.3) mg/dL Total Bilirubin (0.2-1.3) mg/dL AST (14-36) U/L ALT (4-34) U/L Alkaline Phosphatase (38-126) U/L Troponin I <0.012 (0.000-0.034) ng/mL Total Protein (6.3-8.2) g/dL Albumin (3.5-5.0) g/dL TSH (0.465-4.680) mIU/L Urine Color Colorless Urine Appearance Clear (Clear) Urine pH 7.0 (5.0-8.0) Ur Specific [place] 1.006 (1.001-1.035) Urine Protein Negative (Negative) Urine Glucose (UA) Negative (Negative) Urine Ketones Negative (Negative) Urine Blood Negative (Negative) Urine Nitrite Negative (Negative) Urine Bilirubin Negative (Negative) Urine Urobilinogen <2.0 (<2.0) mg/dL Ur Leukocyte Esterase Moderate H (Negative) Urine RBC <1 (0-5) /hpf Urine WBC 28 H (0-5) /hpf Ur Squamous Epith Cells 1 (0-4) /hpf Hyaline Casts 1 (0-2) /lpf Urine Mucus Rare H (None) /hpf Disposition Clinical Impression: Palpitations, Ventricular premature beats Disposition: ADMITTED IP TO THIS HOSP Condition: Stable Is patient prescribed a controlled substance at d/c from ED?: No Referrals: Omar Trevizo MD [Primary Care Provider] - 1-2 days Time of Disposition: 11:17
[2024-09-15 10:19] LABS: Basophils # (A) 0.1 k/uL (0-0.2); Basophils % (A) 1 %; Eosinophils # (A) 0.2 k/uL (0-0.7); Eosinophils % (A) 3 %; HCT 41.5 % (34.0-46.0); HGB 13.8 gm/dL (11.4-16.0); Lymphocytes # (A) 1.6 k/uL (1.0-4.8); Lymphocytes % (A) 27 %; MCH 30.5 pg (25.0-35.0); MCHC 33.3 g/dL (31.0-37.0); MCV 91.7 fL (80.0-100.0); Mean Platelet Volume 7.5; Monocytes # (A) 0.3 k/uL (0-1.0); Monocytes % (A) 6 %; Neutrophils # (A) 3.6 k/uL (1.3-7.7); Neutrophils % (A) 61 %; Platelet Count 279 k/uL (150-450); RBC 4.52 m/uL (3.80-5.40); RDW 14.5 % (11.5-15.5); WBC 5.8 k/uL (3.8-10.6)
[2024-09-15 10:27] LABS: INR 1.1 (<1.2); Partial Thromboplastin Time 23.9 sec (22.0-30.0); Prothrombin Time 11.6 sec (10.0-12.5)
[2024-09-15 10:29] LABS: Appearance,Urine Clear (Clear); Bilirubin,Urine Negative (Negative); Blood,Urine Negative (Negative); Color,Urine Colorless; Glucose,Urine (UA) Negative (Negative); Hyaline Casts,Urine 1 /lpf (0-2); Ketones,Urine Negative (Negative); Leukocyte Esterase,Urine Moderate (Negative); Mucus,Urine Rare /hpf; Nitrite,Urine Negative (Negative); Protein,Urine Negative (Negative); RBC,Urine <1 /hpf (0-5); Specific Gravity,Urine 1.006 (1.001-1.035); Squamous Epithelial Cell,Urine 1 /hpf (0-4); Urobilinogen,Urine <2.0 mg/dL (<2.0); WBC,Urine 28 /hpf (0-5)
[2024-09-15 10:41] LABS: ALT 18 U/L (4-34); AST 27 U/L (14-36); African American GFR (CKD) 86 (>60 ml/min/1.73 sqM); Alkaline Phosphatase 45 U/L (38-126); Anion Gap 8 mmol/L; Blood Urea Nitrogen 29 mg/dL (7-17); Calcium 9.6 mg/dL (8.4-10.2); Carbon Dioxide 26 mmol/L (22-30); Chloride 102 mmol/L (98-107); Glucose 95 mg/dL (74-99); Magnesium 2.1 mg/dL (1.6-2.3); Non-African American GFR(CKD) 74 (>60 ml/min/1.73 sqM); Potassium 3.6 mmol/L (3.5-5.1); Sodium 136 mmol/L (137-145); Total Bilirubin 0.7 mg/dL (0.2-1.3); Total Protein 6.7 g/dL (6.3-8.2)
--- NOTE | 2024-09-15 10:52 | XR ---
EXAMINATION TYPE: XR chest 2V DATE OF EXAM: 09/15/2024 10:48 AM COMPARISON: Chest radiographs from 06/14/2024, CTA chest 08/03/2024 TECHNIQUE: XR chest 2V Frontal and lateral views of the chest. CLINICAL INDICATION:Female, 74 years old with history of dysrhythmia; FINDINGS: Lungs/Pleura: There is no evidence of pleural effusion, focal consolidation, or pneumothorax. Left m idlung linear atelectasis. Pulmonary vascularity: Prominent central pulmonary vasculature. Heart/mediastinum: Cardiomediastinal silhouette is enlarged and stable. Postsurgical changes from ao rtic valvular replacement. Musculoskeletal: No acute osseous pathology. Midline sternotomy wires are noted and stable. IMPRESSION: Chronic changes without acute pulmonary process. [facility], , 09/15/2024 10:50 AM
[2024-09-15] MEDS ORDERED: NALOXONE 0.4 MG/ML 1 ML VIAL IV PRN (11:13)
--- NOTE | 2024-09-15 12:26 | P.HPIM ---
History of Present Illness H&P Date: 09/15/24 History of Presenting Illness: Patient is a very pleasant 74-year-old female with a past medical history of chronic lung disease status post prolonged intubation after undergoing open heart surgery with aortic valve replacement and repair of aortic aneurysm by Dr. Michael at [facility] in 2023. Patient reports she developed postoperative complications of pneumonia and recurrent episodes of atrial fibrillation requiring multiple cardioversions and spent 5 weeks intubated in the ICU followed by 7 weeks of intubation at [facility] prior to being discharged to rehab center at [facility] for 2 weeks. Patient reports since this time she has had chronic cough and persistent shortness of breath and follows with Dr. López, sign painter and Dr. Lopez, drop wire hanger. Patient reports she presented to the emergency department today with a chief complaint of shortness of breath, chest pressure, and palpitations. She reports she was in the shower this morning and on getting out of the shower she was drying herself off and felt extremely short of breath which shortly after followed by severe palpitations, dizziness/lightheadedness, and pressure to her midsternal chest. Patient reports she immediately went to the kitchen to take an aspirin and sat down in the chair. She reports her checked her heart rate with her home pulse ox and her heart rate was 160 bpm. Patient states she tried to take a couple deep breaths and try to relax and her heart rate decreased down into the 40s prior to going back up into the 150s and her said she needed to go to the hospital for evaluation. Upon arrival to our facility patient continues to report shortness of breath and midsternal chest pain. She does report palpitations have subsided. She denies having any recent infections or exposure to known ill contacts, headache, abdominal pain, nausea, vomiting, or experiencing any numbness/tingling/weakness/swelling in her extremities. She reports she last seen Dr. López 1 week ago and last seen Dr. Lopez yesterday. Upon arrival to our facility patient underwent evaluation in the emergency department. Vital signs upon arrival show blood pressure 133/66, heart rate 57, respiratory rate 19, temp 98.3 F, and SpO2 of 98% on room air. EKG was completed showing sinus mechanism 70 bpm with frequent PVCs and T wave inversion in inferior leads II, III, and aVF as well as V1 through V4.. No previous EKGs available for comparison. Chest x-ray showing chronic changes and prominent central pulmonary vasculature but negative for acute cardiopulmonary process. Labs were completed and reviewed. CBC unremarkable. Coagulation profile normal findings. D-dimer 0.77 but normal with age correction. BMP showing sodium 136 and slightly elevated BUN of 29. Blood glucose 95. Magnesium 2.1. Calcium 9.6. Liver profile unremarkable. Troponin was negative at less than 0.012 and TSH also normal findings at 3.870. Patient was admitted under services with consultation to cardiology. Review of systems: Pertinent positives and negatives as discussed in HPI, a complete review of systems was performed and all other systems are negative. Physical exam: Vital signs reviewed and stable. General: Nontoxic, no distress and appears stated age. Derm: Skin warm and dry, normal coloration for ethnicity. Head: Atraumatic, normocephalic and symmetric. Eyes: EOM's intact, no lid lag, and anicteric sclera Mouth: no lip lesions, mucus membranes moist Cardiovascular: regular rate and rhythm with normal S1S2, no murmur, positive posterior tibial pulses bilaterally, and cap refill < 2 seconds. Lungs: Respirations even, regular, and unlabored on room air. Lungs CTA bilaterally, no rhonchi, no rales, no wheezing, and no accessory muscle usage. Abdominal: soft, nontender to palpation, no guarding, no appreciable organomegaly Ext: ROM intact. No gross muscle atrophy, no edema, no contractures Neuro: Speech clear, face symmetrical and CN II-XII grossly intact with no noted focal neuro deficits Psych: Alert and oriented to person, place, time, and situation. Appropriate and pleasant affect. Assessment and Plan of Care: Shortness of breath, midsternal chest pressure and palpitations, rule out acute coronary event Chronic lung disease History of paroxysmal atrial fibrillation, not on anticoagulation History of Open hear surgery with aortic valve replacement and repair of aortic aneurysm 2023 Hypertension Hyperlipidemia -Cardiology consulted, appreciate recommendations -Telemetry monitoring -Trend troponins -Cardiac diet -Resume home cardiac medication regimen with aspirin 325 mg daily, fenofibrate 160 mg daily, and metoprolol 12.5 mg twice daily -TSH was normal findings at 3.870. -Echocardiogram -Patient not on anticoagulation. She reports only history of atrial fibrillation was during prolonged ICU stay where she was experiencing multiple postoperative complications and prolonged intubation, reports she required cardioversion multiple times approximately 3 or 4. -Continue Symbicort 160-4.5 mcg inhaler, Singulair 10 mg nightly, and Ventolin nebulizer treatments every 6 hours as needed for shortness of breath or wheezing. Data and imaging reviewed: As stated above in HPI.. CODE STATUS: Full code DVT prophylaxis: Heparin Discussed with: ED physician, patient, and patient's . Anticipated discharge date: Pending clinical course likely 24 to [address]: Home Patient was seen independently by Nurse Practitioner. This document was prepared using [employer] dictation software. Please allow for errors in mattress specialist while rare they do occur. Magdi Seo NP rendered care for this patient independently, reviewed the findings and plan as documented in the note above and agree with plan. I did not physically speak with or examine the patient on this date. Past Medical History Past Medical History: Asthma, Eye Disorder, GERD/Reflux, Hyperlipidemia, Hypertension, Thyroid Disorder Additional Past Medical History / Comment(s): Aneurysm. Hx migraines, palpitations, hx hiatal hernia. Peripheral double vision. Varicose veins. Vertigo. kidney stone History of Any Multi-Drug Resistant Organisms: None Reported Past Surgical History: Appendectomy, Bladder Surgery, Bowel Resection, Breast Surgery, Heart Catheterization, Hernia Repair, Hysterectomy Additional Past Surgical History / Comment(s): PARATHYROID TUMOR REMOVED, RECTOCELE REPAIR/BLADDER SUSPENSION with hysterectomy, HIATAL HERNIA REPAIR, COLONOSCOPY, EGD, bilateral breast biopsies, RK surgery bilateral eyes, 2nd surgery for prolapse bladder, surgery to repair rectal tear X2, bilateral cataracts removed, bilateral eyelid surgery, heart ultrasound. Past Anesthesia/Blood Transfusion Reactions: Motion Sickness, Postoperative Nausea & Vomiting (PONV) Additional Past Anesthesia/Blood Transfusion Reaction / Comment(s): PONV W/ ETHER YEARS AGO. Vertigo. Past Psychological History: No Psychological Hx Reported Smoking Status: Never smoker Past Alcohol Use History: None Reported Past Drug Use History: None Reported - Past Family History Sister(s) Family Medical History: Cancer Additional Family Medical History / Comment(s): Breast, spread to lungs, liver and bone. Medications and Allergies Home Medications Medication Instructions Recorded Confirmed Type Albuterol Sulfate [Proair Hfa] 2 puff INHALATION RT-Q6H PRN 11/23/16 09/15/24 History Fluticasone Propion/Salmeterol 2 puff INHALATION RT-BID 11/23/16 09/15/24 History [Advair Hfa 115-21 Mcg Inhaler] Montelukast [Singulair] 10 mg PO HS 11/23/16 09/15/24 History Ascorbic Acid [Vitamin C] 1,000 mg PO DAILY 06/03/20 09/15/24 History L.acidoph,Paracasei, B.lactis 1 cap PO DAILY 06/03/20 09/15/24 History [Probiotic] Allergy Shot 1 dose IM QMONTHLY 09/03/23 09/15/24 History Calcium Carbonate [Calcium] 600 mg PO DAILY@1200 09/03/23 09/15/24 History Fenofibrate Nanocrystallized 145 mg PO HS 09/03/23 09/15/24 History [Fenofibrate] Aspirin EC [Ecotrin] 325 mg PO DAILY 09/15/24 09/15/24 History Ergocalciferol (Vitamin D2) 1,250 mcg PO QMONTHLY 09/15/24 09/15/24 History [Drisdol (50,000 Iu)] Metoprolol Tartrate [Lopressor] 12.5 mg PO BID 09/15/24 09/15/24 History Allergies Allergy/AdvReac Type Severity Reaction Status Date / Time amoxicillin [From Augmentin] Allergy Nausea & Verified 09/15/24 10:33 Vomiting & Diarrhea ciprofloxacin [From Cipro] Allergy Nausea & Verified 09/15/24 10:33 Vomiting clavulanic acid Allergy Nausea & Verified 09/15/24 10:33 [From Augmentin] Vomiting & Diarrhea mold Allergy Cough Verified 09/15/24 10:33 Physical Exam Vitals: Vital Signs Temp Pulse Pulse Resp BP Pulse Ox 09/15/24 11:30 55 L 15 141/75 95 09/15/24 10:24 57 L 19 133/66 98 09/15/24 09:37 54 L 09/15/24 09:17 97.2 F L 54 L 20 150/94 99 Intake and Output 09/14/24 09/15/24 09/15/24 22:59 06:59 14:59 Other: Weight 67.585 kg Results CBC & Chem 7: 09/15/24 10:12 09/15/24 10:12 Labs: Abnormal Lab Results - Last 24 Hours (Table) 09/15/24 09/15/24 Range/Units 10:12 10:15 Sodium 136 L (137-145) mmol/L BUN 29 H (7-17) mg/dL Ur Leukocyte Esterase Moderate H (Negative) Urine WBC 28 H (0-5) /hpf Urine Mucus Rare H (None) /hpf
[2024-09-15] MEDS ORDERED: ALBUTEROL NEBULIZED 2.5 MG/3 ML INHALATION PRN (12:39)
[2024-09-15] MEDS: FENOFIBRATE 160 MG TAB PO SCH (20:17)
[2024-09-15] MEDS: METOPROLOL TARTRATE 12.5 MG TAB PO SCH (20:17)
[2024-09-15] MEDS: MONTELUKAST 10 MG TAB PO SCH (20:17)
[2024-09-15] MEDS: SYMBICORT 160-4.5 MCG INHALER INHALATION SCH (20:18)
[2024-09-15] MEDS: HEPARIN SODIUM,PORCINE 5,000 UNIT/ML 1 ML VIAL SQ SCH (23:14)
[2024-09-16 08:07] VITALS: BP 145/88; PULSE 61; RESP 17; TEMP 97.6
[2024-09-16] MEDS: ASPIRIN 325 MG TAB PO SCH (08:47)
[2024-09-16] MEDS: ASCORBIC ACID 500 MG TAB PO SCH (08:47)
[2024-09-16] MEDS: LACTOBACILLUS ACIDOPHILUS/PECT 1 EACH CAPSULE PO SCH (08:47)
--- NOTE | 2024-09-16 09:27 | P.CRDCN ---
History of Present Illness Consult date: 09/16/24 Reason for Consult (text): Frequent PVCs, palpitations History of present illness: This is a 74-year-old female patient of Dr. López with past medical history of valvular heart disease status post AVR with bioprosthetic valve and surgical repair of the thoracic aortic aneurysm, hypertension, dyslipidemia, postop atrial fibrillation. Patient had valvular surgery done in December 2023 and had a very difficult course following that and developed pneumonia, was intubated for extended period 1 to acute long-term care followed by inpatient rehab at [facility]. She was finally discharged to home on April 05. Dr. López did a event monitor 05/04 - 05/24/2024 which we revealed sinus rhythm with IVCD. 2 stable events had occurred. Patient was not having symptoms at that time. Patient gives history that she developed shortness of breath and a heavy feeling in her chest and she took some aspirin and metoprolol and she sat down tried to slow her breathing but her checked her heart rate and it was 160. She could feel a pounding and fast heart rate in her chest. She has never had anything like this before. She states she normally walks on a treadmill 2 miles every day and does not have any symptoms. Blood pressure 144/88, heart rate 61, pulse ox 96% on room air. -EKG: Low atrial focus, coronary sinus rhythm -Chest x-ray: No acute changes. -Laboratory studies: CBC normal. D-dimer 0.77. Sodium 136, BUN 29 creatinine 0.78. Troponin negative x 3. TSH 3.87. -Home cardiac medications: Aspirin 325 mg daily, fenofibrate 145 mg at bedtime, Lopressor 12.5 mg twice daily. -Echocardiogram performed in the office on 05/20/2024 revealed EF 50 to 55%, mild left ventricular hypertrophy. Biological AV prosthesis with normal function. Mild mitral regurgitation, mild tricuspid regurgitation. PASP 30 mmHg. Review Of Systems: At the time of my exam: CONSTITUTIONAL: Denies fever or chills. HEENT: Denies blurred vision, vision changes, or eye pain. Denies hemoptysis CARDIOVASCULAR: Denies chest pain. Denies orthopnea. Denies PND. Denies palpitations RESPIRATORY: Denies shortness of breath. GASTROINTESTINAL: Denies abdominal pain. Denies nausea or vomiting. HEMATOLOGIC: Denies bleeding disorders. GENITOURINARY: Denies any blood in urine. SKIN: Denies puritis. Denies rash. Physical examination: Gen: This is in no acute distress VS: reviewed HEENT: Head is atraumatic, normocephalic. Pupils equal, round. Sclerae is anicteric. NECK: Supple. No JVD. LUNGS: Clear to auscultation. No wheezes or rhonchi. No intercostal retractions. HEART: Regular rate and rhythm. Systolic murmur. ABDOMEN: Soft No tenderness. EXTREMITIES: No pedal edema. No calf tenderness. NEUROLOGICAL: Patient is awake, alert and oriented x3. Assessment: Palpitations Tachycardia possible SVT versus atrial fibrillation Valvular heart disease status post AVR using bioprosthetic valve and surgical repair of thoracic aortic aneurysm Hypertension Dyslipidemia History of postop atrial fibrillation Plan: Resume patient's home cardiac medications No need to repeat echocardiogram as this was done in May. Patient will be set up with event monitor to be picked up in the office on Wednesday Patient is cleared for discharge from cardiology and may follow-up with Dr. López in 6 weeks. Thank you kindly for this consultation. Nurse practitioner note has been reviewed, I agree with documented findings and plan of care. Patient was seen and examined. Past Medical History Past Medical History: Asthma, Eye Disorder, GERD/Reflux, Hyperlipidemia, Hypertension, Thyroid Disorder Additional Past Medical History / Comment(s): Aneurysm. Hx migraines, palpitations, hx hiatal hernia. Peripheral double vision. Varicose veins. Vertigo. kidney stone History of Any Multi-Drug Resistant Organisms: None Reported Past Surgical History: Appendectomy, Bladder Surgery, Bowel Resection, Breast Surgery, Heart Catheterization, Hernia Repair, Hysterectomy Additional Past Surgical History / Comment(s): PARATHYROID TUMOR REMOVED, RECTOCELE REPAIR/BLADDER SUSPENSION with hysterectomy, HIATAL HERNIA REPAIR, COLONOSCOPY, EGD, bilateral breast biopsies, RK surgery bilateral eyes, 2nd surgery for prolapse bladder, surgery to repair rectal tear X2, bilateral cataracts removed, bilateral eyelid surgery, heart ultrasound. Past Anesthesia/Blood Transfusion Reactions: Motion Sickness, Postoperative Nausea & Vomiting (PONV) Additional Past Anesthesia/Blood Transfusion Reaction / Comment(s): PONV W/ ETHER YEARS AGO. Vertigo. Past Psychological History: No Psychological Hx Reported Smoking Status: Never smoker Past Alcohol Use History: None Reported Past Drug Use History: None Reported - Past Family History Sister(s) Family Medical History: Cancer Additional Family Medical History / Comment(s): Breast, spread to lungs, liver and bone. Medications and Allergies Home Medications Medication Instructions Recorded Confirmed Type Albuterol Sulfate [Proair Hfa] 2 puff INHALATION RT-Q6H PRN 11/23/16 09/15/24 History Fluticasone Propion/Salmeterol 2 puff INHALATION RT-BID 11/23/16 09/15/24 History [Advair Hfa 115-21 Mcg Inhaler] Montelukast [Singulair] 10 mg PO HS 11/23/16 09/15/24 History Ascorbic Acid [Vitamin C] 1,000 mg PO DAILY 06/03/20 09/15/24 History L.acidoph,Paracasei, B.lactis 1 cap PO DAILY 06/03/20 09/15/24 History [Probiotic] Allergy Shot 1 dose IM QMONTHLY 09/03/23 09/15/24 History Calcium Carbonate [Calcium] 600 mg PO DAILY@1200 09/03/23 09/15/24 History Fenofibrate Nanocrystallized 145 mg PO HS 09/03/23 09/15/24 History [Fenofibrate] Aspirin EC [Ecotrin] 325 mg PO DAILY 09/15/24 09/15/24 History Ergocalciferol (Vitamin D2) 1,250 mcg PO QMONTHLY 09/15/24 09/15/24 History [Drisdol (50,000 Iu)] Metoprolol Tartrate [Lopressor] 12.5 mg PO BID 09/15/24 09/15/24 History Allergies Allergy/AdvReac Type Severity Reaction Status Date / Time amoxicillin [From Augmentin] Allergy Nausea & Verified 09/15/24 10:33 Vomiting & Diarrhea ciprofloxacin [From Cipro] Allergy Nausea & Verified 09/15/24 10:33 Vomiting clavulanic acid Allergy Nausea & Verified 09/15/24 10:33 [From Augmentin] Vomiting & Diarrhea mold Allergy Cough Verified 09/15/24 10:33 Physical Exam Vitals: Vital Signs Temp Pulse Pulse Pulse Resp BP BP 09/16/24 08:54 09/16/24 07:10 97.6 F 61 17 09/16/24 01:30 97.9 F 54 L 16 09/15/24 18:57 98.1 F 77 16 09/15/24 16:22 65 09/15/24 14:21 97.4 F L 64 17 156/94 09/15/24 12:40 98.3 F 68 18 124/69 09/15/24 11:30 55 L 15 141/75 09/15/24 10:24 57 L 19 133/66 09/15/24 09:37 54 L BP Pulse Ox 09/16/24 08:54 94 L 09/16/24 07:10 145/88 96 09/16/24 01:30 147/87 97 09/15/24 18:57 131/81 96 09/15/24 16:22 120/66 98 09/15/24 14:21 100 09/15/24 12:40 95 09/15/24 11:30 95 09/15/24 10:24 98 09/15/24 09:37 Intake and Output 09/15/24 09/16/24 09/16/24 22:59 06:59 14:59 Intake Total 360 Balance 360 Intake: Oral 360 Other: # Voids 2 3 # Bowel Movements 1 Results 09/15/24 10:12 09/15/24 10:12 Cardiac Enzymes 09/15/24 09/15/24 09/15/24 Range/Units 10:12 10:12 12:58 AST 27 (14-36) U/L Troponin I <0.012 <0.012 (0.000-0.034) ng/mL 09/15/24 Range/Units 15:48 AST (14-36) U/L Troponin I <0.012 (0.000-0.034) ng/mL Coagulation 09/15/24 Range/Units 10:12 PT 11.6 (10.0-12.5) sec APTT 23.9 (22.0-30.0) sec CBC 09/15/24 Range/Units 10:12 WBC 5.8 (3.8-10.6) k/uL RBC 4.52 (3.80-5.40) m/uL Hgb 13.8 (11.4-16.0) gm/dL Hct 41.5 (34.0-46.0) % Plt Count 279 (150-450) k/uL Comprehensive Metabolic Panel 09/15/24 Range/Units 10:12 Sodium 136 L (137-145) mmol/L Potassium 3.6 (3.5-5.1) mmol/L Chloride 102 (98-107) mmol/L Carbon Dioxide 26 (22-30) mmol/L BUN 29 H (7-17) mg/dL Creatinine 0.78 (0.52-1.04) mg/dL Glucose 95 (74-99) mg/dL Calcium 9.6 (8.4-10.2) mg/dL AST 27 (14-36) U/L ALT 18 (4-34) U/L Alkaline Phosphatase 45 (38-126) U/L Total Protein 6.7 (6.3-8.2) g/dL Albumin 4.0 (3.5-5.0) g/dL Current Medications Generic Name Dose Route Start Last Admin Trade Name Freq PRN Reason Stop Dose Admin Albuterol Sulfate 2.5 mg 09/15/24 12:39 Albuterol Nebulized 2.5 Mg/3 Ml INHALATION RT-Q6H PRN Shortness Of Breath Ascorbic Acid 1,000 mg 09/16/24 09:00 09/16/24 08:47 Ascorbic Acid 500 Mg Tab PO 1,000 mg DAILY RANDOLPH Administration Aspirin 325 mg 09/16/24 09:00 09/16/24 08:47 Aspirin 325 Mg Tab PO 325 mg DAILY RANDOLPH Administration Budesonide/Formoterol Fumarate 2 puff 09/15/24 20:00 09/16/24 08:52 Symbicort 160-4.5 Mcg Inhaler INHALATION 2 puff RT-BID RANDOLPH Administration Calcium Carbonate/Glycine 500 mg 09/16/24 12:00 Calcium Carbonate 500 Mg Chewable PO DAILY@1200 [facility] Ergocalciferol 1,250 mcg 09/23/24 09:00 Ergocalciferol 1,250 Mcg (50,000 Iu) Capsule PO QMONTHLY RANDOLPH Fenofibrate 160 mg 09/15/24 21:00 09/15/24 20:17 Fenofibrate 160 Mg Tab PO 160 mg HS RANDOLPH Administration Heparin Sodium (Porcine) 5,000 unit 09/16/24 00:00 09/16/24 08:47 Heparin Sodium,Porcine 5,000 Unit/Ml 1 Ml Vial SQ 5,000 unit Q8HR RANDOLPH Administration Lactobacillus Acidophilus 1 each 09/16/24 09:00 09/16/24 08:47 Lactobacillus Acidophilus/Pect 1 Each Capsule PO 1 each DAILY RANDOLPH Administration Metoprolol Tartrate 12.5 mg 09/15/24 21:00 09/15/24 20:17 Metoprolol Tartrate 12.5 Mg Tab PO 12.5 mg BID RANDOLPH Administration Montelukast Sodium 10 mg 09/15/24 21:00 09/15/24 20:17 Montelukast 10 Mg Tab PO 10 mg HS RANDOLPH Administration Naloxone HCl 0.2 mg 09/15/24 11:13 Naloxone 0.4 Mg/Ml 1 Ml Vial IV Q2M PRN Opioid Reversal Intake and Output 09/15/24 09/16/24 09/16/24 22:59 06:59 14:59 Intake Total 360 Balance 360 Intake: Oral 360 Other: # Voids 2 3 # Bowel Movements 1 09/15/24 10:12 09/15/24 10:12
--- NOTE | 2024-09-16 10:07 | P.DS ---
Providers Date of admission: 09/15/24 11:13 Expected date of discharge: 09/16/24 Attending physician: James Servin MD Consults: 09/15/24 11:13 Consult Physician Routine Consulting Provider: Newton Calvillo Consult Reason/Comments: Palpitations, frequent PVC, tachy dysrhythmia Do you want consulting provider notified?: Yes Primary care physician: Omar Trevizo MD Hospital Course: Discharge Diagnosis: Palpitations, suspect underlying cardiac arrhythmia History of valvular heart disease status post aortic valve replacement and repair of aortic aneurysm History of postop atrial fibrillation Hypertension Dyslipidemia Hospital Course: 74-year-old female with a past medical history of chronic lung disease status post prolonged intubation after undergoing open heart surgery with aortic valve replacement and repair of aortic aneurysm by Dr. Michael at [facility] in 2023. Patient reports she developed postoperative complications of pneumonia and recurrent episodes of atrial fibrillation requiring multiple cardioversions and spent 5 weeks intubated in the ICU followed by 7 weeks of intubation at LTAC prior to being discharged to rehab center at [facility] for 2 weeks. Patient reports since this time she has had chronic cough and persistent shortness of breath and follows with Dr. López, aerophysics engineer and Dr. Lopez, uniform cap operator. Patient reports she presented to the emergency department today with a chief complaint of shortness of breath, chest pressure, and palpitations. She reports she was in the shower this morning and on getting out of the shower she was drying herself off and felt extremely short of breath which shortly after followed by severe palpitations, dizziness/lightheadedness, and pressure to her midsternal chest. Patient reports she immediately went to the kitchen to take an aspirin and sat down in the chair. She reports her checked her heart rate with her home pulse ox and her heart rate was 160 bpm. Patient states she tried to take a couple deep breaths and try to relax and her heart rate decreased down into the 40s prior to going back up into the 150s and her said she needed to go to the hospital for evaluation. Upon arrival to our facility patient continues to report shortness of breath and midsternal chest pain. She does report palpitations have subsided. She denies having any recent infections or exposure to known ill contacts, headache, abdominal pain, nausea, vomiting, or experiencing any numbness/tingling/weakness/swelling in her extremities. She reports she last seen Dr. López 1 week ago and last seen Dr. Lopez yesterday. Upon arrival to our facility patient underwent evaluation in the emergency department. Vital signs upon arrival show blood pressure 133/66, heart rate 57, respiratory rate 19, temp 98.3 F, and SpO2 of 98% on room air. EKG was completed showing sinus mechanism 70 bpm with frequent PVCs and T wave inversion in inferior leads II, III, and aVF as well as V1 through V4.. No previous EKGs available for comparison. Chest x-ray showing chronic changes and prominent central pulmonary vasculature but negative for acute cardiopulmonary process. Labs were completed and reviewed. CBC unremarkable. Coagulation profile normal findings. D-dimer 0.77 but normal with age correction. BMP showing sodium 136 and slightly elevated BUN of 29. Blood glucose 95. Magnesium 2.1. Calcium 9.6. Liver profile unremarkable. Troponin was negative at less than 0.012 and TSH also normal findings at 3.870. Patient was admitted under services with consultation to cardiology. Patient evaluated by cardiology, recommended event monitor. Follow-up outpatient with cardiology. At the time of discharge, denies any chest pain, shortness of breath, palpi tations or lightheadedness. Patient seen and examined at bedside. Vital signs reviewed and stable. General: Nontoxic, no distress, appears at stated age Derm: Warm, dry Head: Atraumatic, normocephalic, symmetric Eyes: EOMI, no lid lag, anicteric sclera Mouth: No lip lesion, mucus membranes moist Cardiovascular: S1S2 reg, no murmur Lungs: CTA bilateral, no rhonchi, no rales, no accessory muscle use Abdominal: Soft, nontender to palpation, no guarding, no appreciable organomegaly Ext: No gross muscle atrophy, no edema, no contractures Neuro: CN II-XI grossly intact, no focal neuro deficits Psych: Alert, oriented, appropriate affect A total of 36 minutes of time were spent preparing this complex discharge summary. Patient was discharged on 09/16/2024 at 955. Patient Condition at Discharge: Stable Plan - Discharge Summary Discharge Rx Participant: No New Discharge Prescriptions: Continue Montelukast [Singulair] 10 mg PO HS Fluticasone Propion/Salmeterol [Advair Hfa 115-21 Mcg Inhaler] 2 puff INHALATION RT-BID Albuterol Sulfate [Proair Hfa] 2 puff INHALATION RT-Q6H PRN PRN Reason: Shortness Of Breath Ascorbic Acid [Vitamin C] 1,000 mg PO DAILY L.acidoph,Paracasei, B.lactis [Probiotic] 1 cap PO DAILY Calcium Carbonate [Calcium] 600 mg PO DAILY@1200 Aspirin EC [Ecotrin] 325 mg PO DAILY Ergocalciferol (Vitamin D2) [Drisdol (50,000 Iu)] 1,250 mcg PO QMONTHLY Fenofibrate Nanocrystallized [Fenofibrate] 145 mg PO HS Allergy Shot 1 dose IM QMONTHLY Metoprolol Tartrate [Lopressor] 12.5 mg PO BID Discharge Medication List Albuterol Sulfate [Proair Hfa] 2 puff INHALATION RT-Q6H PRN 11/23/16 [History] Fluticasone Propion/Salmeterol [Advair Hfa 115-21 Mcg Inhaler] 2 puff INHALATION RT-BID 11/23/16 [History] Montelukast [Singulair] 10 mg PO HS 11/23/16 [History] Ascorbic Acid [Vitamin C] 1,000 mg PO DAILY 06/03/20 [History] L.acidoph,Paracasei, B.lactis [Probiotic] 1 cap PO DAILY 06/03/20 [History] Allergy Shot 1 dose IM QMONTHLY 09/03/23 [History] Calcium Carbonate [Calcium] 600 mg PO DAILY@1200 09/03/23 [History] Fenofibrate Nanocrystallized [Fenofibrate] 145 mg PO HS 09/03/23 [History] Aspirin EC [Ecotrin] 325 mg PO DAILY 09/15/24 [History] Ergocalciferol (Vitamin D2) [Drisdol (50,000 Iu)] 1,250 mcg PO QMONTHLY 09/15/24 [History] Metoprolol Tartrate [Lopressor] 12.5 mg PO BID 09/15/24 [History] Follow up Appointment(s)/Referral(s): Sancho López MD [STAFF PHYSICIAN] - 6 Weeks Omar Trevizo MD [Primary Care Provider] - 1-2 days Patient Instructions/Handouts: Heart Palpitations (DC) Activity/Diet/Wound Care/Special Instructions: Please cherry picker operator event monitor from cardiology office on Wednesday. Please see PCP and cardiology. Discharge Disposition: HOME SELF-CARE
--- NOTE | 2024-09-16 10:29 | CA ---
Transthoracic Echo Report Name: Ml Malik Age: 74 Gender: F : 1950 Exam Date: 09/16/2024 08:02 Exam Location: [facility] Ht (in): 64 Wt (lb): 149 Ordering Physician: Magdi Seo Attending/Referring Phys: Camera Machinist Josefina Posada RDCS Procedure CPT: Indications: CP, palpitations, SOB, atrial fib, bradycardia Cardiac Hx: AOV replaced 2023 Technical Quality: Fair Contrast 1: Definity Total Dose (mL): 2 Contrast 2: Total Dose (mL): MEASUREMENTS (Male / Female) Normal Values 2D ECHO LV Diastolic Diameter PLAX 4.8 cm 4.2 - 5.9 / 3.9 - 5.3 cm LV Systolic Diameter PLAX 3.5 cm IVS Diastolic Thickness 1.3 cm 0.6 - 1.0 / 0.6 - 0.9 cm LVPW Diastolic Thickness 1.4 cm 0.6 - 1.0 / 0.6 - 0.9 cm LV Relative Wall Thickness 0.6 RV Internal Dim ED PLAX 3.4 cm LA Systolic Diameter LX 4.7 cm 3.0 - 4.0 / 2.7 - 3.8 cm LV Diastolic Volume MOD BP 136.6 cm??? 67 - 155 / 56 - 104 cm??? LV Systolic Volume MOD BP 91.3 cm??? - 58 / 19 - 49 cm??? LV Ejection Fraction MOD BP 33.1 % >= 55 % LV Cardiac Index MOD BP 2108.5 cm???/min???m??? LV Diastolic Volume MOD 4C 131.3 cm??? LV Systolic Volume MOD 4C 86.6 cm??? LV Ejection Fraction MOD 4C 34.0 % LV Cardiac Index MOD 4C 2081.1 cm???/min???m??? LV Diastolic Length 4C 8.5 cm LV Systolic Length 4C 8.4 cm LV Diastolic Volume MOD 2C 135.3 cm??? LV Systolic Volume MOD 2C 93.0 cm??? LV Ejection Fraction MOD 2C 31.3 % LV Cardiac Index MOD 2C 1972.1 cm???/min???m??? LV Diastolic Length 2C 9.0 cm LV Systolic Length 2C 8.7 cm LA Volume 136.5 cm??? 18 - 58 / 22 - 52 cm??? LA Volume Index 77.6 cm???/m??? 16 - 28 cm???/m??? M-MODE LV Diastolic Diameter MM 5.6 cm 4.2 - 5.9 / 3.9 - 5.3 cm LV Systolic Diameter MM 4.4 cm LV Cardiac Index MM Teich 3026.0 cm???/min???m??? IVS Diastolic Thickness MM 1.2 cm 0.6 - 1.0 / 0.6 - 0.9 cm LVPW Diastolic Thickness MM 1.3 cm 0.6 - 1.0 / 0.6 - 0.9 cm LV Relative Wall Thickness MM 0.4 0.24 - 0.42 / 0.22 - 0.42 LV Mass Index MM 164.3 g/m??? 49 - 115 / 43 - 95 g/m??? Aortic Root Diameter MM 3.8 cm DOPPLER AV Peak Velocity 200.6 cm/s AV Peak Gradient 16.1 mmHg AV Mean Velocity 91.0 cm/s AV Mean Gradient 5.1 mmHg AV Velocity Time Integral 50.2 cm LVOT Peak Velocity 70.0 cm/s LVOT Peak Gradient 2.0 mmHg LVOT Velocity Time Integral 18.9 cm MV Area PHT 1.5 cm??? Mitral E Point Velocity 41.7 cm/s Mitral A Point Velocity 78.0 cm/s Mitral E to A Ratio 0.5 MV Deceleration Time 506.3 ms TR Peak Velocity 242.9 cm/s TR Peak Gradient 23.6 mmHg Right Ventricular Systolic Press 28.3 mmHg FINDINGS Left Ventricle Left ventricular ejection fraction is estimated at 40-45 %. Severely increased left ventricular mass. Mildly increased septal wall thickness. Mildly increased posterior wall thickness. Moderately decreased fractional shortening. Severely decreased midwall fractional shortening. Mildly increased left ventricular diastolic diameter. Severely increased left ventricular diastolic volume. Severely increased left ventricular systolic volume. Mildly increased left ventricular relative wall thickness. Moderately decreased left ventricular ejection fraction. Right Ventricle Mild right ventricular dilatation. Right ventricular systolic pressure within normal limits. Right Atrium Normal right atrial size. No right atrial thrombus or mass seen. Left Atrium Severely increased left atrial diameter. Severely increased left atrial volume. Moderately increased left atrial area. No left atrial thrombus or mass present. Mitral Valve Structurally normal mitral valve. Mild mitral regurgitation. No mitral stenosis. No evidence for mitral valve prolapse. Aortic Valve Normally functioning bioprosthetic aortic valve without stenosis with a peak velocity of 2.0 m/s, peak gradient 16 mmHg, mean gradient 5 mmHg Tricuspid Valve Structurally normal tricuspid valve. Mild tricuspid regurgitation. Pulmonic Valve Structurally normal pulmonic valve. No pulmonic regurgitation. Pericardium No pericardial effusion. Aorta Mild aortic dilatation at the level of the sinuses of valsalva 38 mm CONCLUSIONS Indication: Sustained palpitations shortness of breath aortic valve replacement LVH with mildly reduced LV systolic function Bioprosthetic valve in stable position and functioning normally Mild RV enlargement Previewed by: Dr. Newton Calvlilo MD (Electronically Signed) Final Date: 16 September 2024 10:28
[2024-09-16 11:20] LABS: HGB 13.1 g/dL (12.0-15.0); MCH 29.8 pg (27.0-32.0); MCHC 31.2 g/dL (32.0-37.0); MCV 95.5 FL (80.0-97.0); Mean Platelet Volume 11.1 FL (9.5-12.2); NRBC Per 100 WBC 0 X 10*3/uL (0.00-0.01); Platelet Count 272 X 10*3/uL (140-440); RDW 14.8 % (11.5-14.5); WBC 5.52 X 10*3/uL (4.50-10.00)
[2024-09-16] MEDS ORDERED: CALCIUM CARBONATE 500 MG CHEWABLE PO SCH (12:00)
[2024-09-16 12:38] LABS: BUN/Creat Ratio 28.75 Ratio (12.00-20.00); Calcium 9.2 mg/dL (8.7-10.3); Chloride 106 mmol/L (96-109); Glucose 91 mg/dL (70-110); Magnesium 2.1 mg/dL (1.5-2.4); Potassium 3.8 mmol/L (3.5-5.5); Sodium 140 mmol/L (135-145)
[2024-09-23] MEDS ORDERED: ERGOCALCIFEROL 1,250 MCG (50,000 IU) CAPSULE PO SCH (09:00)
== END 2024-09-16 10:27 | disposition home or self-care (01) ==
LOC: EC 09:10 → 6NMEDSUR 11:13
PROVIDERS: ADMIT Family Medicine; ATTEND Family Medicine
DX: I49.3 Ventricular premature depolarization (principal); I11.9 Hypertensive heart disease without heart failure; I08.1 Rheumatic disorders of both mitral and tricuspid valves; R00.0 Tachycardia, unspecified; J98.4 Other disorders of lung; I48.0 Paroxysmal atrial fibrillation; Z95.3 Presence of xenogenic heart valve; I71.20 Thoracic aortic aneurysm, without rupture, unspecified; E78.5 Hyperlipidemia, unspecified; R94.4 Abnormal results of kidney function studies; Z79.82 Long term (current) use of aspirin; Z79.51 Long term (current) use of inhaled steroids; Z79.899 Other long term (current) drug therapy; Z88.0 Allergy status to penicillin; Z88.1 Allergy status to other antibiotic agents; Z88.8 Allergy status to other drugs, medicaments and biological substances; Z91.048 Other nonmedicinal substance allergy status; Z87.01 Personal history of pneumonia (recurrent); Z87.09 Personal history of other diseases of the respiratory system
CPT/HCPCS: 99285; 36415; 94640 ×2; 94760; 93005; 93306; 85379; 80053; 80048; 83735 ×2; 84443; 84484; 85025; 85027; 85610; 85730; 81001; 71046; G0378 ×2; J1644; Q9957

== ENCOUNTER → 2024-12-06 | Outpatient (CLI) | payer MEDICARE ==
[2024-12-06 08:46] LABS: African American GFR (CKD) 73 (>60 ml/min/1.73 sqM); Blood Urea Nitrogen 31 mg/dL (7-17); Non-African American GFR(CKD) 63 (>60 ml/min/1.73 sqM)
--- NOTE | 2024-12-06 15:39 | CT ---
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 TECHNIQUE: Axial images were obtained at 5 mm thick sections. Reconstructed images are reviewed on [employer] computer in the coronal plane. Contrast used:100 mL of Isovue 300 with IV Contrast, (none if empty) Oral contrast used: (none if empty) CT DLP: 313.20 mGycm, Automated exposure control for dose reduction was used. FINDINGS: Portion of the thyroid visualized is normal. No suspicious lung nodules are present. There are some linear strands slightly greater on the left. S ome mild atelectasis or pneumonia could be considered within the lingula these findings however are s imilar to prior examination. Other etiologies should also be considered. There is a persistent nodular density approximately 0.7 cm right upper lung field. Series 3 image 23 lung windows. There is persistence of the groundglass opacity in the periphery of the right lower brandy g field. Series 3 image 40. No enlarged mediastinal or hilar adenopathy is evident. The ascending aorta diameter at the level o f the main pulmonary artery is 3.2 cm. The main pulmonary artery diameter at the bifurcation is 2.8 cm. Heart size is enlarged No significant coronary artery calcifications. Limited CT sections are obtained through the upper abdomen. Abdomen is essentially unremarkable. IMPRESSION: 1. Persistent mild increased lung markings to the lingular region. Right lung persistent nodularity a nd groundglass opacities present. Consider additional workup. [facility], Workstation: [facility], 12/06/2024 3:37 PM
== END | disposition home or self-care (01) ==
LOC: RADCTMAIN 08:07
PROVIDERS: ATTEND Internal Medicine Critical Care Medicine
DX: R91.8 Other nonspecific abnormal finding of lung field (principal)
CPT/HCPCS: 82565; 84520; 71260; 36415; Q9967